=== PATIENT | male | born 1950 | race African-American/Black ===

== ENCOUNTER 2020-05-25 08:25 | Outpatient (CLI) | payer MEDICARE, SELFPAY ==
--- NOTE | ~2020-05-25 | CT_ITS ---
EXAMINATION: CT abdomen pelvis w con EXAM DATE: 05/25/2020 09:05 INDICATION: Prostate cancer. TECHNIQUE: Spiral CT of the abdomen and pelvis was performed following intravenous injection of 100 m L Omnipaque 350. Axial, coronal and sagittal images were reviewed. The dose-length product (DLP) fo r this examination was 746.68 mGy-cm. The exposure was tailored according to patient size (auto mA e xposure control), and iterative reconstruction (ASIR) was used as additional dose reduction technique . Correlation is made to PET/CT 12/11/2017. FINDINGS: The liver, spleen, adrenal glands and pancreas are unremarkable. Gallbladder is unremark able. No biliary obstruction. Portal and splenic veins are patent. Kidneys enhance symmetrically. There is no hydronephrosis. Scattered renal lesions consistent with cysts, largest in the left kidne y measuring 1.5 cm. Patient has likely had prostatectomy. The bladder is unremarkable. There is n o retroperitoneal or pelvic lymphadenopathy. Small umbilical hernia with small bowel bulging inside . Mild scattered arteriosclerotic disease. The appendix is normal. The stomach and small bowel are unremarkable. There is expected amount of c olonic stool. No free intraperitoneal gas. The heart is normal in size. There are no pericardial or pleural effusions. The lung bases are unremarkable. There are no osteoblastic or osteolytic les ions identified. Mild bilateral gynecomastia. IMPRESSION: No evidence of metastatic disease. Reviewed, dictated and finalized at location B. FIXER
--- NOTE | ~2020-05-25 | NM_ITS ---
EXAMINATION: NM bone scan whole body DATE: 05/25/2020 11:57 INDICATION: Prostate cancer. TECHNIQUE: 25 mCi Tc-99m HDP was administered intravenously. Delayed whole-body scintigrams were obt ained. COMPARISON: CT abdomen and pelvis 05/25/20 FINDINGS: There is no pattern of increased activity in the bones to suggest metastatic disease. IMPRESSION: 1. No evidence of metastatic disease. Reviewed, dictated and finalized at location A. 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
[2020-05-25 08:58] LABS: Estimated Glomerular Filt Rate > 60
== END 2020-05-25 08:26 | disposition home or self-care (01) ==
PROVIDERS: PCP Internal Medicine; Visit Provider Urology
DX: C61 Malignant neoplasm of prostate (principal)
CPT/HCPCS: 74177; 78306; A9561; Q9967

== ENCOUNTER 2021-05-16 21:05 | Inpatient (IN) | payer MEDICARE, SELFPAY ==
[2021-05-16] VITALS (25 sets, daily range): BP systolic 109–138; BP diastolic 68–94; PULSE 101–113; RESP 11–25; TEMP 36.1; O2SAT 93
--- NOTE | ~2021-05-16 | CT_ITS ---
EXAMINATION: CT brain wo con DATE: 05/16/2021 21:45 INDICATION: Syncope TECHNIQUE: Computed tomography (CT) of the head was performed without intravenous contrast. The mA wa s adjusted according to patient size. Iterative reconstruction technique was employed. Exam dose: 68 1.00 mGy-cm total exam DLP. COMPARISON: None FINDINGS: Bilateral vertebral artery, basilar artery and bilateral carotid siphon internal carotid ar deborah calcifications. There is nonspecific patchy diminished attenuation of the cerebral white matter, likely due to chroni c small vessel ischemic changes. No intracranial mass lesion or hemorrhage or cerebrovascular accident is evident. No midline shift or mass effect. Normal ventricular size. Moderate cerebral volume loss. No subdural or epidural hematom a. No fracture or bone destruction of the cranial vault. There is evidence of bilateral nasal antral windows. There is mild mucoperiosteal thickening of the m axillary sinuses and soft tissue thickening of some of the ethmoid septae. There is partial opacifica tion of left mastoid air cells. IMPRESSION: Cerebral atherosclerosis and chronic small vessel ischemic changes of the cerebral white matter No acute intracranial finding Reviewed, dictated and finalized at Location A. Reviewed, dictated and finalized at location A. 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
--- NOTE | ~2021-05-16 | XR_ITS ---
XR chest 1V portable DATE: 05/16/2021 21:56 INDICATION: Syncope today TECHNIQUE: Portable AP chest on 05/16/2021 at 2153 hours COMPARISON: None FINDINGS: There are patchy infiltrates in the mid and particularly lower lung zones suggesting bilate ral pneumonia; aspiration pneumonitis is not excluded. Normal heart size. No pulmonary vascular congestion or pleural effusion or pneumothorax. IMPRESSION: Bilateral mid and lower lung infiltrates suggesting bilateral pneumonia. Aspiration is no t excluded. Reviewed, dictated and finalized at location A. SLATIVE CORRESPONDENT IMPRESSION: Bilateral mid and lower lung infiltrates suggesting bilateral pneum onia. Aspiration is not excluded.
--- NOTE | 2021-05-16 21:31 | ECG_ITS ---
Measurements Intervals [place] Rate: 111 P: 48 HI: 134 QRS: 1 QRSD: 98 T: 53 QT: 326 QTc: 444 Interpretive Statements SINUS TACHYCARDIA BASELINE ARTIFACT- I, II, III, AVR, AVL, AVF, V1, V3-V6 ABNORMAL ECG Electronically Signed On 05-17-2021 6:45:41 PER DIEM NURSE by [place] D.O.
[2021-05-16 22:15] LABS: Basophils Percent Auto 0.3 % (0.2-1.2); Eosinophils Percent Auto 0.1 % (0-4.4); Hematocrit 42.8 % (42.0-52.0); Immature Granulocyte Absolute 0.06 K/mm3 (0.00-0.031); Immature Granulocyte Percent A 0.8 % (0-0.5); Lymphocytes Absolute Auto 1.17 K/mm3 (0.9-3.2); Lymphocytes Percent Auto 16.3 % (18.3-44.2); Mean Corpuscular HGB Conc 32.7 g/dl (32-36); Mean Corpuscular Hemoglobin 25.7 pg (26-34); Mean Corpuscular Volume 78.7 fl (80-100); Mean Platelet Volume 10.5 fl (7.4-10.4); Monocytes Percent Auto 13.7 % (2.6-8.5); Neutrophils Absolute Auto 4.9 K/mm3 (1.3-6.7); Neutrophils Percent Auto 68.8 % (45.5-73.1); Platelet Count Result 231 k/mm3 (150-375); Red Blood Count 5.44 M/mm3 (4.6-6.20); Red Cell Distribution Width 14.3 % (11.5-14.5); White Blood Count 7.2 K/mm3 (4.5-10.0)
[2021-05-16 22:24] LABS: INR 1.1; Prothrombin Time 13.6 Seconds (11.1-14.7)
[2021-05-16 22:38] LABS: Troponin I < 0.012 ng/mL (0.000-0.034)
[2021-05-16 22:43] LABS: Alanine Aminotransferase 20 U/L (4-50); Albumin Level 4.2 g/dL (3.5-5.1); Alkaline Phosphatase 67 U/L (38-126); Anion Gap 11 mmol/L (8-16); Aspartate Amino Transferase 39 U/L (17-59); Bilirubin,Total 1.3 mg/dL (0.2-1.3); Blood Urea Nitrogen 23 mg/dL (9-20); Calcium 8.9 mg/dL (8.4-10.2); Carbon Dioxide 22 mmol/L (22-30); Chloride 98 mmol/L (98-107); Estimated CRCL calculation 80 ml/min; Estimated Glomerular Filt Rate > 60; Glucose 294 mg/dL (65-110); Magnesium 2.5 mg/dL (1.6-2.3); Potassium 5.2 mmol/L (3.4-5.0); Sodium 131 mmol/L (137-145)
[2021-05-16] MEDS: SODIUM CHLORIDE 0.9% IV 500 ML 999 ML IV CONT (23:11)
--- NOTE | 2021-05-16 23:37 | ED.GENADULT ---
HPI - General Adult General Chief complaint: Syncope Stated complaint: SYNCOPAL X 2 WITH A GLF Time Seen by Provider: 05/16/21 21:15 Source: patient, family and EMS Mode of arrival: EMS Limitations: no limitations History of Present Illness HPI narrative: 70-year-old with a history of diabetes on insulin was brought in from home with history of multiple syncopal episodes. Patient states that he was walking out of the toilet , presents became unsteady on his feet and fell forwards. As per the granddaughter who is at bedside patient was disoriented for few seconds to a minute but she did not lose consciousness. He denied any chest pain or shortness of breath. Patient she states that had 2 episodes this evening. Second time he was not incontinent of urine. No previous history of seizure disorder. He denies any patient does report that he had a chest pain, palpitation. No history of nausea, vomiting or abdominal pain blood in the stool. Granddaughter also reports that he was found confused this afternoon Onset (ago): hour(s) (1) Location: face Relieving factors: none Exacerbating factors: none Associated symptoms: denies other symptoms Related Data Allergies Allergy/AdvReac Type Severity Reaction Status Date / Time No Known Allergies Allergy Verified 05/16/21 21:13 Review of Systems Review of Systems: All systems reviewed & are unremarkable except as noted in HPI and below Constitutional: Constitutional: Reports no additional constitutional complaints Eyes: Eyes: Reports no additional eye complaints ENT: Reports system reviewed and no additional complaints, except as documented Cardiovascular: Cardiovascular: Reports no additional cardiovascular complaints Respiratory: Respiratory: Reports no additional respiratory complaints Gastrointestinal: Gastrointestinal: Reports no additional gastrointestinal complaints Genitourinary: Genitourinary: Reports no additional male genitourinary complaints Musculoskeletal: Musculoskeletal: Reports no additional musculoskeletal complaints Exam Narrative: GENERAL: Well-appearing, well-nourished, and in no acute distress. HEAD: Normocephalic, atraumatic. EYES: PERRLA and EOMI. ENT: Nares clear, no rhinorrhea or epistaxis. Mucous membranes moist. A small superficial erythema present. Plaque noted on the lower lip , no dental fracture NECK: Supple. CHEST: Clear to auscultation. No respiratory distress. HEART: Regular rate and rhythm. No murmur heard. Normal peripheral pulses. ABDOMEN: Soft, nontender, nondistended, normal active bowel sounds. EXTREMITIES: Normal range of motion. No edema. SKIN: Warm, dry, no rash. NEURO: No focal deficits. Alert and oriented x3. PSYCH: Normal mood and affect. Course Course Emergency Course: Patient remains asymptomatic, I discussed lab, EKG and CT findings with the patient and her granddaughter. She prefers him discussed with the hospitalist agreed to admit the patient. To be admitted Vital Signs Vital signs: Vital Signs Temperature 36.1 C L 05/16/21 21:06 Pulse Rate 108 H 05/16/21 21:06 Respiratory Rate 17 05/16/21 21:06 Blood Pressure 132/78 05/16/21 21:06 Pulse Oximetry 93 05/16/21 21:06 Temperature 36.1 C L 05/16/21 21:06 Pulse Rate 102 H 05/17/21 00:01 Respiratory Rate 22 H 05/17/21 00:01 Blood Pressure 127/79 05/17/21 00:01 Pulse Oximetry 97 05/17/21 00:01 Medical Decision Making Vital Signs Vital Signs: Vital Signs Temperature 36.1 C L 05/16/21 21:06 Pulse Rate 108 H 05/16/21 21:06 Respiratory Rate 17 05/16/21 21:06 Blood Pressure 132/78 05/16/21 21:06 Pulse Oximetry 93 05/16/21 21:06 Temperature 36.1 C L 05/16/21 21:06 Pulse Rate 102 H 05/17/21 00:01 Respiratory Rate 22 H 05/17/21 00:01 Blood Pressure 127/79 05/17/21 00:01 Pulse Oximetry 97 05/17/21 00:01 Lab Data Result diagrams: 05/16/21 22:10 05/16/21 22:10 Labs: Lab Resu
[2021-05-17] VITALS (61 sets, daily range): BP systolic 93–140; BP diastolic 45–90; PULSE 88–116; RESP 13–37; TEMP 36.2–37; O2SAT 93–99; BMI 23.3
--- NOTE | 2021-05-17 | ECHO_ITS ---
Patient Info Name: Jai Escobar Age: 70 years : 1950 Gender: Male Ht: 75 in Wt: 215 lbs BSA: 2.28 m2 HR: 105 bpm BP: 129 / 85 mmHg Heart Rhythm: Sinus Rhythm Technical Quality: Good Exam Date: 05/17/2021 2:13 PM Exam Location: [facility] Card Pulmonary Patient Status: Inpatient Admit Date: 05/17/2021 Staff Ordering Physician: Matt Hill M.A., MD Patient Portal Concierge: Nataly Vargas RDCS Attending Provider: Cyrus Celeste MD Referring Physician: Nile GARCIA; Exam Type: CA echo doppler color flow Study Info Indications R55 - Syncope and collapse Complete two-dimensional, color flow and Doppler transthoracic echocardiogram is performed. Summary 1. Complete two-dimensional, color flow and Doppler transthoracic echocardiogram is performed. 2. Left ventricular chamber dimension is normal. 3. Left ventricular systolic function is normal, estimated at 55-60%. 4. There is moderately increased left ventricular wall thickness. 5. The left ventricular diastolic function is grade I diastolic dysfunction. 6. There is no aortic valve stenosis. 7. There is mild tricuspid valve regurgitation. 8. No pulmonary hypertension, estimated pulmonary arterial systolic pressure is 27 mmHg. 9. There is no mitral valve regurgitation. Left Ventricle Left ventricular chamber dimension is normal. Left ventricular systolic function is normal, estimated at 55-60%. There is moderately increased left ventricular wall thickness. The left ventricular diastolic function is grade I diastolic dysfunction. Right Ventricle Right ventricular chamber dimension is normal. Right ventricular systolic function is normal. Left Atria Left atrial chamber dimension is normal. Right Atria Right atrial chamber dimension is normal. Aortic Valve The aortic valve is trileaflet. There is no aortic valve stenosis. There is no aortic valve regurgitation. Pulmonic Valve The pulmonic valve is not well visualized. Mitral Valve The mitral valve has thickened leaflets. There is no mitral valve regurgitation. Tricuspid Valve The tricuspid valve leaflets are normal. There is mild tricuspid valve regurgitation. No pulmonary hypertension, estimated pulmonary arterial systolic pressure is 27 mmHg. Pericardium/Pleural The pericardium appears epicardial fat pad. Inferior Vena Cava Normal inferior vena cava with >50% collapse upon inspiration consistent with normal right atrial pressure, 5 mmHg. Aorta The aortic root size at the sinus of Valsalva is mildly dilated. Left Ventricular Outflow Tract Name Value Normal LVOT 2D LVOT Diameter 2.1 cm LVOT Doppler LVOT Peak Gradient 3 mmHg LVOT Mean Gradient 2 mmHg LVOT VTI 16 cm LVOT VTI/AV VTI Ratio 0.8 LVOT Stroke Volume 56 ml LVOT CO 4.9 l/min LVOT CI 2.1 l/min/m2 Pulmonic Valve Name
[2021-05-17 00:59] LABS: SARS-CoV-2 RNA PCR Positive
[2021-05-17] MEDS: SODIUM CHLORIDE 0.9% IV 1,000 ML 75 ML IV CONT (01:26)
[2021-05-17 01:32] LABS: Glucose Point of Care 289 mg/dl (65-105)
[2021-05-17 06:45] LABS: Troponin I < 0.012 ng/mL (0.000-0.034)
[2021-05-17 08:08] LABS: Glucose Point of Care 231 mg/dl (65-105)
[2021-05-17] MEDS: ASPIRIN 81 MG CHEWABLE TABLET PO (08:44)
[2021-05-17] MEDS: INSULIN ASPART (*BKC) 100 UNITS/ML SUB-Q ×2 (08:45→18:08)
--- NOTE | 2021-05-17 08:47 | PM.CNCAR ---
Assessment and Plan Assessment and plan (1) Diabetes mellitus: Code(s): E11.9 - Type 2 diabetes mellitus without complications Status: Acute (2) Pneumonia due to 2019 novel coronavirus: Code(s): U07.1 - COVID-19; J12.82 - Pneumonia due to coronavirus disease 2019 Status: Acute (3) Syncope: Qualifiers: Syncope type: unspecified Qualified Code(s): R55 - Syncope and collapse Code(s): R55 - Syncope and collapse Status: Acute (4) Acute hypoxemic respiratory failure: Code(s): J96.01 - Acute respiratory failure with hypoxia Status: Acute Additional Plan -syncope -COVID pneumonia -history of diabetes This 70-year-old patient who presents with recurrent episodes of syncope. Evidence of dehydration by elevated BUN to creatinine ratio. Currently sinus tachycardia. Patient does have underlying COVID pneumonia. Recommend at this time to continue IV fluids. Check echocardiogram to assess RV function. Supportive care for COVID pneumonia. DVT prophylaxis History of Present Illness History of Present Illness Consult date/time: Date of service 05/17/21 08:47 Requesting physician: Timothy Adkins MD Consult reason: Other ( syncope) Reason For Visit: syncope Narrative: this 70-year-old patient with history of stage III adenocarcinoma of the prostate, with a history of prostatectomy 2014 , diabetes who presents with syncope and altered mental status. He was found to have COVID. Patient is tachycardic between heart rate 100-110 and systolic blood pressure 120. Currently sitting comfortably with no complaints of chest pain, shortness of breath, dizziness of palpitations. Sinus tachycardia on telemetry. Not requiring oxygen. Apparently was trying to stand up at home a was having episodes of syncope. Passed out several times. Chest x-ray with analyzer views myself consistent with COVID pneumonia. BUN 23, creatinine 0.[address] of the head shows small vessel disease. Review of Systems Constitutional: Constitutional: Denies chills, Denies fever(s) and Denies poor appetite Eyes: Eyes: Denies eye discharge, Denies loss of vision, Denies eye pain and Denies photophobia ENT: Denies dizziness, Denies epistaxis, Denies nasal congestion and Denies sore throat Cardiovascular: Cardiovascular: Denies chest pain, Denies syncope, Denies pedal edema, Denies leg edema, Denies palpitations, Denies dyspnea, Denies dyspnea on exertion, Denies orthopnea and Reports other (Syncope) Respiratory: Respiratory: Denies cough, Denies dyspnea, Denies dyspnea on exertion and Denies wheezing Gastrointestinal: Gastrointestinal: Denies abdominal pain, Denies diarrhea, Denies nausea and Denies vomiting Genitourinary: Genitourinary: Denies hematuria, Denies genital lesions and Denies dysuria Musculoskeletal: Musculoskeletal: Denies arthralgias, Denies joint swelling and Denies numbness Integumentary/Breasts: Skin/Breast: Denies pruritus and Denies rash Neurologic: Reports dizziness, Reports syncope, Denies loss of vision and Denies numbness Psychiatric: Psychiatric: Denies anxiety and Denies depression Endocrine: Endocrine: Denies cold intolerance, Denies heat intolerance and Denies palpitations Hematologic/Lymphatic: Hematologic/Lymphatic: Denies easy bleeding and Denies easy bruising Allergic/Immunologic: Allergic/Immunologic: Denies urticaria and Denies wheezing PMFSH Past Medical History Medical History Diabetes Prostate cancer Surgical History Surgical History (Updated 05/17/21 @ 11:01 by Raymond Giraldo MD) H/O prostatectomy Social History Social History (Updated 05/17/21 @ 11:02 by Raymond Giraldo MD) Smoking status: Never smoker Alcohol intake: never Meds Home Medications and Allergies Allergies Allergy/AdvReac Type Severity Reaction Status Date / Time No Known Allergies Allerg
--- NOTE | 2021-05-17 08:54 | PM.IMHP ---
H&P: HPI History of Present Illness Date/Time: 05/17/21 08:54 Chief Complaint: Syncopal episode Narrative: 70 years old male with past medical history of diabetes presented to the hospital with multiple syncopal episode patient was trying to stand from well it and have loss of consciousness denies chest pain during my evaluation patient's systolic blood pressure was 98 patient also has hypoxia chest x-ray shows bilateral infiltrate concern for COVID/aspiration pneumonia COVID-19 was positive patient was admitted for further evaluation and treatment Review of Systems Review of Systems: All systems reviewed & are unremarkable except as noted in HPI and below Meds Home Medications and Allergies Allergies Allergy/AdvReac Type Severity Reaction Status Date / Time No Known Allergies Allergy Verified 05/16/21 21:13 Vital Signs Vital Signs - 24 hr 05/16/21 21:06 05/16/21 21:10 05/16/21 21:11 Temperature 97.0 F L Pulse Rate 108 H Respiratory Rate 17 22 H 11 L Blood Pressure 132/78 132/78 Pulse Oximetry 93 05/16/21 21:15 05/16/21 21:16 05/16/21 21:30 Temperature Pulse Rate 106 H 107 H 109 H Respiratory Rate 22 H 19 18 Blood Pressure 136/76 Pulse Oximetry 93 05/16/21 21:31 05/16/21 21:46 05/16/21 21:47 Temperature Pulse Rate 109 H 112 H 111 H Respiratory Rate 23 H 22 H 25 H Blood Pressure 138/76 118/77 Pulse Oximetry 05/16/21 22:00 05/16/21 22:01 05/16/21 22:15 Temperature Pulse Rate 112 H 110 H 108 H Respiratory Rate 20 18 17 Blood Pressure 126/79 Pulse Oximetry 05/16/21 22:16 05/16/21 22:30 05/16/21 22:31 Temperature Pulse Rate 113 H 109 H 109 H Respiratory Rate 24 H 22 H 20 Blood Pressure 126/76 132/81 Pulse Oximetry 05/16/21 22:45 05/16/21 22:46 05/16/21 23:00 Temperature Pulse Rate 109 H 109 H 108 H Respiratory Rate 24 H 19 21 H Blood Pressure 137/88 Pulse Oximetry 05/16/21 23:01 05/16/21 23:15 05/16/21 23:16 Temperature Pulse Rate 109 H 103 H 104 H Respiratory Rate 16 18 24 H Blood Pressure 115/68 133/82 Pulse Oximetry 05/16/21 23:30 05/16/21 23:31 05/16/21 23:45 Temperature Pulse Rate 101 H 101 H 102 H Respiratory Rate 17 19 25 H Blood Pressure 134/75 Pulse Oximetry 05/16/21 23:46 05/17/21 00:00 05/17/21 00:01 Temperature Pulse Rate 102 H 99 102 H Respiratory Rate 24 H 18 22 H Blood Pressure 109/94 H 127/79 Pulse Oximetry 97 05/17/21 02:26 05/17/21 04:51 05/17/21 05:48 Temperature Pulse Rate 99 101 H 103 H Respiratory Rate 18 21 H 17 Blood Pressure 130/75 140/90 137/78 Pulse Oximetry 99 96 93 05/17/21 06:19 05/17/21 06:48 Temperature 98.6 F Pulse Rate 108 H 112 H Respiratory Rate 20 19 Blood Pressure 129/85 129/85 Pulse Oximetry 96 97 Exam Const: General: in distress HENMT: Ears: TM's normal bilaterally Eyes: Sclera: sclerae normal Neck: Neck: no JVD Resp: Auscultation: crackles, rales and rhonchi Cardio: Rate: regular rate Rhythm: regular rhythm GI: Inspection: non-distended GI Palp: Yes Soft to palpation Skin: General skin exam: normal color Neuro: General: deep tendon reflexes 2+ bilaterally Speech: normal speech Motor exam (neuro): Normal motor muscle tone present throughout Extrem: General: normal to inspection Left upper extremity: normal to inspection Right lower extremity: normal to inspection Left lower extremity: normal to inspection Psych: Mental Status: mental status grossly normal H&P: Results Labs Labs: Short CBC 05/16/21 Range/Units 22:10 WBC 7.2 (4.5-10.0) K/mm3 Hgb 14.0 (14.0-18.0) g/dL Hct 42.8 (42.0-52.0) % Plt Count 231 (150-375) k/mm3 BMP 05/16/21 22:10 Sodium 131 L Potassium 5.2 H Chloride 98 Carbon Dioxide 22 BUN 23 H Creatinine 0.90 Glucose 294 H Calcium 8.9 Cardiac Enzymes 05/16/21 05/17/21 Range/Units 22:10 05:59 Troponin I < 0.012 < 0.012 (0.000-0.034) ng/
[2021-05-17 09:24] LABS: Basophils Percent Auto 0.3 % (0.2-1.2); Hematocrit 36.4 % (42.0-52.0); Hemoglobin 12.2 g/dL (14.0-18.0); Immature Granulocyte Absolute 0.03 K/mm3 (0.00-0.031); Immature Granulocyte Percent A 0.4 % (0-0.5); Lymphocytes Absolute Auto 1.28 K/mm3 (0.9-3.2); Lymphocytes Percent Auto 17.8 % (18.3-44.2); Mean Corpuscular HGB Conc 33.5 g/dl (32-36); Mean Corpuscular Hemoglobin 26.1 pg (26-34); Mean Corpuscular Volume 77.8 fl (80-100); Mean Platelet Volume 10.5 fl (7.4-10.4); Monocytes Absolute Auto 1.1 K/mm3 (0.1-0.6); Monocytes Percent Auto 14.8 % (2.6-8.5); Neutrophils Absolute Auto 4.8 K/mm3 (1.3-6.7); Neutrophils Percent Auto 66.7 % (45.5-73.1); Platelet Count Result 233 k/mm3 (150-375); Red Blood Count 4.68 M/mm3 (4.6-6.20); White Blood Count 7.2 K/mm3 (4.5-10.0)
[2021-05-17 09:41] LABS: Alanine Aminotransferase 17 U/L (4-50); Estimated CRCL calculation 80 ml/min; Estimated Glomerular Filt Rate > 60; INR 1.1; Prothrombin Time 14.5 Seconds (11.1-14.7)
[2021-05-17 09:53] LABS: Albumin Level 3.9 g/dL (3.5-5.1); Alkaline Phosphatase 81 U/L (38-126); Anion Gap 11 mmol/L (8-16); Aspartate Amino Transferase 26 U/L (17-59); Bilirubin,Total 0.8 mg/dL (0.2-1.3); Blood Urea Nitrogen 19 mg/dL (9-20); Calcium 8.8 mg/dL (8.4-10.2); Carbon Dioxide 25 mmol/L (22-30); Chloride 101 mmol/L (98-107); Glucose 232 mg/dL (65-110); Potassium 4.3 mmol/L (3.4-5.0); Sodium 137 mmol/L (137-145)
[2021-05-17] MEDS: AMPICILLIN SULB 3 GM/NS 100 ML 3 GM/100 ML VIAL IVPB ×3 (10:08→23:42)
[2021-05-17 10:09] LABS: Troponin I < 0.012 ng/mL (0.000-0.034)
[2021-05-17] MEDS: BENZONATATE 100 MG CAPSULE 200 MG PO ×3 (10:10→18:07)
[2021-05-17] MEDS: BISACODYL 5 MG TABLET EC PO (10:11)
[2021-05-17] MEDS: ENOXAPARIN 30 MG/0.3 ML SYRINGE SUB-Q ×2 (10:11→21:30)
[2021-05-17] MEDS: guaiFENesin 12 HR 600 MG TABCR PO ×2 (10:11→21:29)
[2021-05-17] MEDS: INSULIN GLARGINE (*BKC) 100 UNITS/ML 10 UNITS SUB-Q (10:12)
[2021-05-17] MEDS: SODIUM CHLORIDE 0.45% 1,000 ML 75 ML IV CONT (10:24)
[2021-05-17] MEDS: MIDODRINE HCL 2.5 MG TABLET 5 MG PO ×3 (10:33→18:07)
[2021-05-17 10:43] LABS: CRP 12.5 mg/dL (<1.0)
[2021-05-17] MEDS: REMDESIVIR 200 MG/NS 250 ML 200 MG/250 ML BAG 250 MG IVPB (11:17)
[2021-05-17 11:28] LABS: Glucose Point of Care 188 mg/dl (65-105)
--- NOTE | 2021-05-17 16:53 | PCSTNOTE ---
Please refer to the Bedside Swallow Evaluation in the EMR. Please note, silent aspiration cannot be ruled out at bedside.
[2021-05-17 16:54] LABS: Glucose Point of Care 367 mg/dl (65-105)
[2021-05-17 22:18] LABS: Glucose Point of Care 356 mg/dl (65-105)
[2021-05-17 23:58] LABS: Glucose Point of Care 319 mg/dl (65-105)
[2021-05-18] VITALS: BP 123/79; PULSE 90; RESP 18; TEMP 36.2; O2SAT 95
[2021-05-18 04:00] VITALS: BP 123/73; PULSE 84; RESP 16; TEMP 36.3; O2SAT 95
[2021-05-18 04:55] LABS: Glucose Point of Care 326 mg/dl (65-105)
[2021-05-18] MEDS: AMPICILLIN SULB 3 GM/NS 100 ML 3 GM/100 ML VIAL IVPB (05:42)
[2021-05-18 08:00] VITALS: BP 113/59; PULSE 88; RESP 18; TEMP 37.2; O2SAT 93
[2021-05-18 08:23] LABS: Glucose Point of Care 258 mg/dl (65-105)
[2021-05-18] MEDS: ENOXAPARIN 30 MG/0.3 ML SYRINGE SUB-Q ×2 (08:40→21:57)
[2021-05-18] MEDS: BENZONATATE 100 MG CAPSULE 200 MG PO ×3 (08:40→16:41)
[2021-05-18] MEDS: guaiFENesin 12 HR 600 MG TABCR PO ×2 (08:41→21:57)
[2021-05-18] MEDS: ASPIRIN 81 MG CHEWABLE TABLET PO (08:41)
[2021-05-18] MEDS: MIDODRINE HCL 2.5 MG TABLET 5 MG PO ×3 (08:41→16:41)
[2021-05-18] MEDS: INSULIN GLARGINE (*BKC) 100 UNITS/ML 10 UNITS SUB-Q (08:42)
[2021-05-18] MEDS: INSULIN ASPART (*BKC) 100 UNITS/ML SUB-Q ×3 (08:42→16:39)
[2021-05-18] MEDS: SODIUM CHLORIDE 0.45% 1,000 ML 75 ML IV CONT (10:30)
[2021-05-18 11:08] LABS: Basophils Percent Auto 0.3 % (0.2-1.2); Hematocrit 35.7 % (42.0-52.0); Hemoglobin 11.7 g/dL (14.0-18.0); Immature Granulocyte Absolute 0.06 K/mm3 (0.00-0.031); Immature Granulocyte Percent A 0.8 % (0-0.5); Lymphocytes Absolute Auto 0.96 K/mm3 (0.9-3.2); Lymphocytes Percent Auto 13.2 % (18.3-44.2); Mean Corpuscular HGB Conc 32.8 g/dl (32-36); Mean Corpuscular Hemoglobin 25.9 pg (26-34); Mean Corpuscular Volume 79.2 fl (80-100); Mean Platelet Volume 10.9 fl (7.4-10.4); Monocytes Absolute Auto 0.8 K/mm3 (0.1-0.6); Monocytes Percent Auto 10.6 % (2.6-8.5); Neutrophils Absolute Auto 5.5 K/mm3 (1.3-6.7); Neutrophils Percent Auto 75.1 % (45.5-73.1); Platelet Count Result 258 k/mm3 (150-375); Red Blood Count 4.51 M/mm3 (4.6-6.20); Red Cell Distribution Width 14.1 % (11.5-14.5); White Blood Count 7.3 K/mm3 (4.5-10.0)
[2021-05-18 11:20] LABS: INR 1.2; Prothrombin Time 15.1 Seconds (11.1-14.7)
[2021-05-18 11:35] LABS: Alanine Aminotransferase 19 U/L (4-50); Albumin Level 3.6 g/dL (3.5-5.1); Alkaline Phosphatase 69 U/L (38-126); Anion Gap 7 mmol/L (8-16); Aspartate Amino Transferase 25 U/L (17-59); Bilirubin,Total 0.5 mg/dL (0.2-1.3); Blood Urea Nitrogen 19 mg/dL (9-20); CRP 10.8 mg/dL (<1.0); Calcium 8.5 mg/dL (8.4-10.2); Carbon Dioxide 24 mmol/L (22-30); Chloride 104 mmol/L (98-107); Estimated CRCL calculation 101 ml/min; Estimated Glomerular Filt Rate > 60; Glucose 298 mg/dL (65-110); Sodium 135 mmol/L (137-145)
--- NOTE | 2021-05-18 11:46 | PCDIET ---
Pt screened in for MST 2. Unable to visit with pt due to following covid precautions. Per EMR, pt has had unintentional wt loss of 2-13lbs and decreased appetite. No past weight reported to compare to current weight. Current nutrition is carb consistent diet and dietary supplement of Glucerna Shake BID providing an additional 220kcal and 10g of protein. Reported intake is 70% and 100%. Agree with diet order. No nutritional needs at this time. Will follow up in 7 days.
[2021-05-18 11:58] VITALS: BP 122/61; PULSE 90; RESP 18; TEMP 36.2; O2SAT 95
[2021-05-18 12:10] LABS: Glucose Point of Care 354 mg/dl (65-105)
--- NOTE | 2021-05-18 12:16 | PM.IMPN ---
Progress Note: A&P Assessment and Plan (1) Syncope: Qualifiers: Syncope type: unspecified Qualified Code(s): R55 - Syncope and collapse Code(s): R55 - Syncope and collapse Status: Acute Assessment and Plan: CT scan of the head is negative Probable vasovagal complicated by hypotension and orthostatic hypotension and pneumonia DC IV fluid today as patient also has COVID-19 pneumonia echo cardiology eval Improved (2) Pneumonia due to 2019 novel coronavirus: Code(s): U07.1 - COVID-19; J12.82 - Pneumonia due to coronavirus disease 2019 Status: Acute Assessment and Plan: Probable COVID-19 pneumonia complicated with aspiration pneumonia continue IV antibiotic Started COVID-19 protocol Remdesivir 05/26 Dexamethasone 05/31 (3) Acute hypoxemic respiratory failure: Code(s): J96.01 - Acute respiratory failure with hypoxia Status: Acute Assessment and Plan: Secondary to COVID-19 pneumonia oxygen COVID-19 protocol was started remdesivir and dexamethasone (4) Diabetes mellitus: Code(s): E11.9 - Type 2 diabetes mellitus without complications Status: Acute Assessment and Plan: Insulin sliding scale Uncontrolled Scheduled aspart increase the dose of Lantus most likely related to steroid Subjective Date/time seen: 05/18/21 12:16 Interval history: Patient presented to the hospital with multiple syncopal episode associated with hypotension patient was found to have dehydration bilateral pneumonia concern for aspiration pneumonia also COVID-19 was positive patient was treated with broad-spectrum IV antibiotics also started on dexamethasone and remdesivir Patient was treated with IV fluid and midodrine Patient feels better today Patient denies fever headache chest pain I am seeing the patient for shortness of breath Exam Narrative: Alert Chest positive crackles Abdomen nontender nondistended CVS S1 + S2 Lower extremity edema Objective Data Vital Signs Vital Signs: Vital Signs - 24 hr 05/17/21 12:30 05/17/21 15:10 05/17/21 16:00 Temperature 97.6 F 97.5 F L Pulse Rate 100 111 H 98 Respiratory Rate 16 20 18 Blood Pressure 125/78 107/45 L Pulse Oximetry 94 94 05/17/21 21:02 05/18/21 00:00 05/18/21 04:00 Temperature 97.2 F L 97.2 F L 97.4 F L Pulse Rate 88 90 84 Respiratory Rate 16 18 16 Blood Pressure 113/67 123/79 123/73 Pulse Oximetry 95 95 95 05/18/21 08:00 05/18/21 11:58 Temperature 99.0 F 97.2 F L Pulse Rate 88 90 Respiratory Rate 18 18 Blood Pressure 113/59 L 122/61 Pulse Oximetry 93 95 Intake/Output Intake/Output: Intake & Output 05/15/21 05/16/21 05/17/21 05/18/21 23:59 23:59 23:59 23:59 Intake Total 500 3180 1390 Output Total 700 Balance 500 3180 690 Meds/Results Medications: Active Medications Generic Name Dose Route Start Last Admin Trade Name Freq PRN Reason Stop Dose Admin Acetaminophen 650 mg 05/17/21 08:44 Acetaminophen 325 Mg Tablet PO Q4H PRN Mild Pain (1-3) or Fever Albuterol 2 puff 05/17/21 09:13 Albuterol Sulfate (*Sp) Inhaler INHALATION Q6HRT PRN Shortness Of Breath Aspirin 81 mg 05/17/21 08:00 05/18/21 08:41 Aspirin 81 Mg Chewable Tablet PO 81 mg DAILY@0800 [facility] Administration Benzonatate 200 mg 05/17/21 09:00 05/18/21 08:40 Benzonatate 100 Mg Capsule PO 200 mg TID HANY Administration Bisacodyl 5 mg 05/17/21 08:44 05/17/21 10:11 Bisacodyl 5 Mg Tablet Ec PO 5 mg DAILY PRN Administration Constipation Dexamethasone Sodium Phosphate 6 mg 05/17/21 09:00 05/18/21 08:41 Dexamethasone Sod Phos Inj 10 Mg/Ml 1 Ml Vial IV PUSH 05/26/21 09:01 6 mg DAILY HANY Administration Dextrose 12.5 gm 05/17/21 08:58 Dextrose 50% 25 Gm/50 Ml Syringe IV PUSH PRN PRN Hypoglycemia Protocol Doxycycline Hyclate 100 mg 05/18/21 18:00 Doxycycline Hyclate 100 Mg Tablet PO Q12H [facility] Enoxaparin S
[2021-05-18 12:26] LABS: Hypochromasia 1+ (NORMAL); Platelet Estimate Adequate (Adequate)
[2021-05-18 12:27] LABS: Atypical Lymphocytes Present; Tear Drop Cells 1+ (NORMAL)
[2021-05-18] MEDS: REMDESIVIR 100 MG/NS 250 ML 100 MG/250 ML BAG 250 MG IVPB (12:33)
[2021-05-18] MEDS: cefTRIAXone 2 GM in SODIUM CHLORIDE 0.9% IV 100 ML 200 ML IVPB (13:55)
[2021-05-18] MEDS: INSULIN ASPART (*BKC) 100 UNITS/ML 6 UNITS SUB-Q (16:39)
[2021-05-18] MEDS: DOXYCYCLINE HYCLATE 100 MG TABLET PO (16:41)
[2021-05-18 16:48] LABS: Glucose Point of Care 408 mg/dl (65-105)
[2021-05-18 19:01] LABS: Glucose Point of Care 322 mg/dl (65-105)
[2021-05-18 20:00] VITALS: BP 134/80; PULSE 92; RESP 16; TEMP 36.4; O2SAT 94
[2021-05-18 22:06] LABS: Glucose Point of Care 359 mg/dl (65-105)
[2021-05-19] VITALS (7 sets, daily range): BP systolic 106–137; BP diastolic 49–81; PULSE 82–94; RESP 16–20; TEMP 36–37.1; O2SAT 91–98
[2021-05-19] MEDS: DOXYCYCLINE HYCLATE 100 MG TABLET PO ×2 (06:58→18:33)
[2021-05-19 07:55] LABS: INR 1.1; Prothrombin Time 14.5 Seconds (11.1-14.7)
[2021-05-19 08:05] LABS: Alanine Aminotransferase 15 U/L (4-50); Albumin Level 3.4 g/dL (3.5-5.1); Alkaline Phosphatase 72 U/L (38-126); Anion Gap 7 mmol/L (8-16); Aspartate Amino Transferase 21 U/L (17-59); Bilirubin,Total 0.3 mg/dL (0.2-1.3); Blood Urea Nitrogen 22 mg/dL (9-20); CRP 6.2 mg/dL (<1.0); Calcium 9.1 mg/dL (8.4-10.2); Carbon Dioxide 25 mmol/L (22-30); Chloride 104 mmol/L (98-107); Estimated CRCL calculation 101 ml/min; Estimated Glomerular Filt Rate > 60; Glucose 307 mg/dL (65-110); Potassium 4.1 mmol/L (3.4-5.0); Sodium 136 mmol/L (137-145)
[2021-05-19 08:18] LABS: Basophils Percent Auto 0.2 % (0.2-1.2); Hematocrit 37.9 % (42.0-52.0); Hemoglobin 12.4 g/dL (14.0-18.0); Immature Granulocyte Absolute 0.06 K/mm3 (0.00-0.031); Immature Granulocyte Percent A 0.9 % (0-0.5); Lymphocytes Absolute Auto 1.53 K/mm3 (0.9-3.2); Lymphocytes Percent Auto 23.1 % (18.3-44.2); Mean Corpuscular HGB Conc 32.7 g/dl (32-36); Mean Corpuscular Hemoglobin 25.9 pg (26-34); Mean Corpuscular Volume 79.1 fl (80-100); Monocytes Absolute Auto 0.9 K/mm3 (0.1-0.6); Monocytes Percent Auto 13.3 % (2.6-8.5); Neutrophils Absolute Auto 4.1 K/mm3 (1.3-6.7); Neutrophils Percent Auto 62.5 % (45.5-73.1); Platelet Count Result 313 k/mm3 (150-375); Red Blood Count 4.79 M/mm3 (4.6-6.20); Red Cell Distribution Width 14.2 % (11.5-14.5); White Blood Count 6.6 K/mm3 (4.5-10.0)
[2021-05-19] MEDS: INSULIN ASPART (*BKC) 100 UNITS/ML 6 UNITS SUB-Q ×3 (09:07→18:28)
[2021-05-19] MEDS: INSULIN GLARGINE (*BKC) 100 UNITS/ML 15 UNITS SUB-Q ×2 (09:07→18:30)
[2021-05-19] MEDS: INSULIN ASPART (*BKC) 100 UNITS/ML SUB-Q ×3 (09:07→18:28)
[2021-05-19] MEDS: MIDODRINE HCL 2.5 MG TABLET 5 MG PO ×2 (09:10→13:04)
[2021-05-19] MEDS: BENZONATATE 100 MG CAPSULE 200 MG PO ×3 (09:11→18:28)
[2021-05-19] MEDS: ASPIRIN 81 MG CHEWABLE TABLET PO (09:11)
[2021-05-19] MEDS: guaiFENesin 12 HR 600 MG TABCR PO ×2 (09:11→20:05)
[2021-05-19] MEDS: ENOXAPARIN 30 MG/0.3 ML SYRINGE SUB-Q ×2 (09:12→20:05)
[2021-05-19 10:06] LABS: Glucose Point of Care 297 mg/dl (65-105)
[2021-05-19] MEDS: REMDESIVIR 100 MG/NS 250 ML 100 MG/250 ML BAG 250 MG IVPB (10:35)
[2021-05-19 11:48] LABS: Glucose Point of Care 224 mg/dl (65-105)
--- NOTE | 2021-05-19 13:14 | PM.IMPN ---
Progress Note: A&P Assessment and Plan (1) Syncope: Qualifiers: Syncope type: unspecified Qualified Code(s): R55 - Syncope and collapse Code(s): R55 - Syncope and collapse Status: Acute Assessment and Plan: CT scan of the head is negative Probable vasovagal complicated by hypotension and orthostatic hypotension and pneumonia no hypotension reported in the chart Patient also has COVID-19 pneumonia echo reviewed ejection fraction 55-60%, moderately increased left ventricular wall thickness grade 1 diastolic dysfunction no other valvular abnormality noted Will do PT and OT evaluate Will stop his midodrine and monitor his blood pressure (2) Pneumonia due to 2019 novel coronavirus: Code(s): U07.1 - COVID-19; J12.82 - Pneumonia due to coronavirus disease 2019 Status: Acute Assessment and Plan: COVID-19 pneumonia complicated with aspiration pneumonia continue IV antibiotic Started COVID-19 protocol Remdesivir / Dexamethasone 06/28 (3) Acute hypoxemic respiratory failure: Code(s): J96.01 - Acute respiratory failure with hypoxia Status: Acute Assessment and Plan: Secondary to COVID-19 pneumonia oxygen COVID-19 protocol was started remdesivir and dexamethasone I do not see any hypoxia noted in the chart. Will reassess need for continued remdesivir and Decadron (4) Diabetes mellitus: Code(s): E11.9 - Type 2 diabetes mellitus without complications Status: Acute Assessment and Plan: Insulin sliding scale Uncontrolled Scheduled aspart increase the dose of Lantus most likely related to steroid Increase Lantus to 15 units subQ b.i.d. Subjective Date/time seen: 05/19/21 13:14 Interval history: Patient presented to the hospital with multiple syncopal episode associated with hypotension patient was found to have dehydration, bilateral pneumonia concern for aspiration pneumonia also COVID-19 was positive patient was treated with broad-spectrum IV antibiotics also started on dexamethasone and remdesivir Patient was treated with IV fluid and midodrine 05/19/2021: Patient feels better minimal cough no expectoration. Denies any shortness of breath. Has not ambulated yet Review of Systems Review of Systems: All systems reviewed & are unremarkable except as noted in HPI and below Exam Narrative: GENERAL: The patient is well developed, not in acute distress HEENT: Nonicteric sclerae, PERRLA, EOMI. Oropharynx clear. Moist mucous membranes. Conjunctivae appear well perfused. CHEST: Chest wall is nontender. HEART: Regular rate and rhythm without murmur, rubs, or gallops LUNGS: Clear to auscultation bilaterally. no respiratory distress ABDOMEN: Soft, positive bowel sounds, non-tender, no organomegaly. SKIN: No rash, no excessive bruising, petechiae, or purpura. NEUROLOGIC: Cranial nerves II-XII intact, alert and oriented x 3, no gross motor deficits EXTREMITIES: no edema, cyanosis or clubbing Objective Data Vital Signs Vital Signs: Vital Signs - 24 hr 05/18/21 20:00 05/19/21 04:00 05/19/21 05:29 Temperature 97.6 F 96.8 F L Pulse Rate 92 94 Respiratory Rate 16 16 Blood Pressure 134/80 106/49 L Pulse Oximetry 94 91 94 05/19/21 09:05 05/19/21 10:53 Temperature 98.7 F Pulse Rate 92 Respiratory Rate 16 Blood Pressure 113/66 Pulse Oximetry 94 95 Intake/Output Intake/Output: Intake & Output 05/16/21 05/17/21 05/18/21 05/19/21 23:59 23:59 23:59 23:59 Intake Total 500 3180 2720 860 Output Total 700 1000 Balance 500 3180 2020 -140 Meds/Results Medications: Active Medications Generic Name Dose Route Start Last Admin Trade Name Freq PRN Reason Stop Dose Admin Acetaminophen 650 mg 05/17/21 08:44 Acetaminophen 325 Mg Tablet PO Q4H PRN Mild Pain (1-3) or Fever Albuterol 2 puff 05/17/21 09:13 Albuterol Sulfate (*Sp) Inhaler INHALATION Q6HRT PRN Shortness Of Breath Aspirin 81 mg 05/17/21 08:
[2021-05-19 17:33] LABS: Glucose Point of Care 264 mg/dl (65-105)
[2021-05-19 20:47] LABS: Glucose Point of Care 339 mg/dl (65-105)
[2021-05-20] VITALS: BP 102/49; PULSE 84; RESP 18; TEMP 37; O2SAT 94
[2021-05-20 04:00] VITALS: BP 129/76; PULSE 94; RESP 18; TEMP 36.6; O2SAT 92
[2021-05-20] MEDS: DOXYCYCLINE HYCLATE 100 MG TABLET PO (06:25)
[2021-05-20 08:00] VITALS: BP 132/88; PULSE 98; RESP 24; TEMP 35.5; O2SAT 93
[2021-05-20] MEDS: INSULIN ASPART (*BKC) 100 UNITS/ML 6 UNITS SUB-Q (08:59)
[2021-05-20] MEDS: INSULIN GLARGINE (*BKC) 100 UNITS/ML 15 UNITS SUB-Q (09:00)
[2021-05-20] MEDS: ENOXAPARIN 30 MG/0.3 ML SYRINGE SUB-Q (09:00)
[2021-05-20] MEDS: INSULIN ASPART (*BKC) 100 UNITS/ML SUB-Q (09:00)
[2021-05-20] MEDS: ASPIRIN 81 MG CHEWABLE TABLET PO (09:01)
[2021-05-20] MEDS: BENZONATATE 100 MG CAPSULE 200 MG PO ×2 (09:01→13:29)
[2021-05-20] MEDS: guaiFENesin 12 HR 600 MG TABCR PO (09:01)
[2021-05-20 09:54] LABS: Basophils Percent Auto 0.3 % (0.2-1.2); Eosinophils Percent Auto 0.1 % (0-4.4); Hematocrit 41.1 % (42.0-52.0); Hemoglobin 13.2 g/dL (14.0-18.0); Immature Granulocyte Absolute 0.05 K/mm3 (0.00-0.031); Immature Granulocyte Percent A 0.7 % (0-0.5); Immature Platelet Fraction Pct 7.4 % (0.9-11.2); Lymphocytes Percent Auto 26.6 % (18.3-44.2); Mean Corpuscular HGB Conc 32.1 g/dl (32-36); Mean Corpuscular Hemoglobin 26.1 pg (26-34); Mean Corpuscular Volume 81.2 fl (80-100); Mean Platelet Volume 10.6 fl (7.4-10.4); Monocytes Absolute Auto 0.5 K/mm3 (0.1-0.6); Neutrophils Absolute Auto 4.9 K/mm3 (1.3-6.7); Neutrophils Percent Auto 65.3 % (45.5-73.1); Platelet Count Result 271 k/mm3 (150-375); Red Blood Count 5.06 M/mm3 (4.6-6.20); Red Cell Distribution Width 14.3 % (11.5-14.5); White Blood Count 7.5 K/mm3 (4.5-10.0)
[2021-05-20 10:07] LABS: INR 1.3; Prothrombin Time 15.6 Seconds (11.1-14.7)
[2021-05-20 10:53] LABS: Alanine Aminotransferase 23 U/L (4-50); Albumin Level 3.5 g/dL (3.5-5.1); Alkaline Phosphatase 71 U/L (38-126); Anion Gap 9 mmol/L (8-16); Aspartate Amino Transferase 32 U/L (17-59); Bilirubin,Total 0.5 mg/dL (0.2-1.3); Blood Urea Nitrogen 24 mg/dL (9-20); CRP 3.9 mg/dL (<1.0); Calcium 9.5 mg/dL (8.4-10.2); Carbon Dioxide 24 mmol/L (22-30); Chloride 106 mmol/L (98-107); Estimated CRCL calculation 101 ml/min; Estimated Glomerular Filt Rate > 60; Glucose 223 mg/dL (65-110); Sodium 139 mmol/L (137-145)
--- NOTE | 2021-05-20 10:53 | PC.NURSE ---
Per Dr. Celeste's request, I contacted PT to verify if pt was ok to be discharged to home or if he needed any rehab/ongoing PT services. PT stated that did not have him scheduled to be worked with today nor does he need any additional services beyond his current support system and mobility aids (ramp, cane, etc.) that are currently in his home.
[2021-05-20 11:04] LABS: Atypical Lymphocytes Present; Platelet Estimate Adequate (Adequate)
[2021-05-20 12:30] LABS: Glucose Point of Care 188 mg/dl (65-105)
--- NOTE | 2021-05-20 12:44 | PM.DS ---
DS: Admitting Diagnosis Discharge Date 05/20/2021 Admitting Diagnosis syncope DS: Discharge Diagnosis Discharge Diagnosis (1) Syncope: Qualifiers: Syncope type: unspecified Qualified Code(s): R55 - Syncope and collapse Code(s): R55 - Syncope and collapse Status: Acute Assessment and Plan: CT scan of the head is negative Probable vasovagal complicated by hypotension and orthostatic hypotension and pneumonia no hypotension reported in the chart Patient also has COVID-19 pneumonia echo reviewed ejection fraction 55-60%, moderately increased left ventricular wall thickness grade 1 diastolic dysfunction no other valvular abnormality noted PT OT evaluated and cleared for discharge He was initially started on midodrine which was stopped and monitor his blood pressure remained stable off midodrine. (2) Pneumonia due to 2019 novel coronavirus: Code(s): U07.1 - COVID-19; J12.82 - Pneumonia due to coronavirus disease 2019 Status: Acute Assessment and Plan: COVID-19 pneumonia complicated with aspiration pneumonia continue IV antibiotic Started COVID-19 protocol Remdesivir / Dexamethasone 06/28 Stopped remdesivir and dexamethasone as he was never hypoxic during the hospital stay. Will not continue this at discharge (3) Acute hypoxemic respiratory failure: Code(s): J96.01 - Acute respiratory failure with hypoxia Status: Acute Assessment and Plan: Secondary to COVID-19 pneumonia oxygen COVID-19 protocol was started remdesivir and dexamethasone I do not see any hypoxia noted in the chart. start remdesivir and Decadron and no hypoxia was noted. (4) Diabetes mellitus: Code(s): E11.9 - Type 2 diabetes mellitus without complications Status: Acute Assessment and Plan: Insulin sliding scale Uncontrolled Scheduled aspart increase the dose of Lantus most likely related to steroid Increase Lantus to 15 units subQ b.i.d. He uses Lantus 30 units b.i.d. at home which will be continued at the time of discharge DS: Summary Hospital Course Hospital Course: see above Time Spent with Patient Time attestation: Total time spent providing and/or coordinating discharge services: 45 minutes Exam Narrative: GENERAL: The patient is well developed, not in acute distress HEENT: Nonicteric sclerae, PERRLA, EOMI. Oropharynx clear. Moist mucous membranes. Conjunctivae appear well perfused. CHEST: Chest wall is nontender. HEART: Regular rate and rhythm without murmur, rubs, or gallops LUNGS: Clear to auscultation bilaterally. no respiratory distress ABDOMEN: Soft, positive bowel sounds, non-tender, no organomegaly. SKIN: No rash, no excessive bruising, petechiae, or purpura. NEUROLOGIC: Cranial nerves II-XII intact, alert and oriented x 3, no gross motor deficits EXTREMITIES: no edema, cyanosis or clubbing DS: Data Data Completed and Pending Labs on day of discharge: Labs from last 24 hours 05/20/21 05/20/21 05/20/21 12:06 09:45 09:45 WBC 7.5 RBC 5.06 Hgb 13.2 L Hct 41.1 L MCV 81.2 MCH 26.1 MCHC 32.1 RDW 14.3 Plt Count 271 MPV 10.6 H Immature Gran % (Auto) 0.7 H Neut % (Auto) 65.3 Lymph % (Auto) 26.6 [place] % (Auto) 7.0 Eos % (Auto) 0.1 Baso % (Auto) 0.3 Lymph # (Auto) 2.00 [place] # (Auto) 0.5 Eos # (Auto) 0.0 Baso # (Auto) 0.0 Abs Immat Gran (auto) 0.05 H Absolute Neuts (auto) 4.9 Absolute Nucleated RBC 0.0 Nucleated RBC % 0.0 Atypical Lymphocytes Present Platelet Estimate Adequate % Immature Plt Fraction 7.4 PT INR Sodium 139 Potassium 4.0 Chloride 106 Carbon Dioxide 24 Anion Gap 9 BUN 24 H Creatinine 0.70 Estim Creat Clear Calc 101 Estimated GFR > 60 Glucose 223 H POC Capillary Glucose 188 H Calcium 9.5 Ferritin Total Bilirubin 0.5 AST 32 ALT 23 Alkaline Phosphatase 71 C-Reactive Protein 3.9 H Total P
== END 2021-05-20 15:05 | disposition home or self-care (01) | DRG 177 ==
LOC: ANHED 05-17 00:58 → ANH3MEDSUR 05-17 01:01 → ANHCPC 05-17 13:06 → ANHSUROVER 05-17 13:06 → ANH3MEDSUR 05-17 13:51
PROVIDERS: Internal Medicine; Admitting Provider Internal Medicine; Emergency Provider Family Medicine; PCP Internal Medicine; Visit Provider Internal Medicine
DX: U07.1 COVID-19 (principal); J12.82 Pneumonia due to coronavirus disease 2019; J69.0 Pneumonitis due to inhalation of food and vomit; J96.01 Acute respiratory failure with hypoxia; E11.9 Type 2 diabetes mellitus without complications; Z79.4 Long term (current) use of insulin; R32 Unspecified urinary incontinence; I95.1 Orthostatic hypotension; E86.0 Dehydration; Z85.46 Personal history of malignant neoplasm of prostate
CPT/HCPCS: 36415; 70450; 71045; 80053; 82565; 82728; 82948; 83735; 84460; 84484; 85025; 85055; 85610; 86140; 87040; 92610; 93005; 93306; 96360; 97161; 99285; A9270; C9803; J0295; J0696; J1100; J1650; J1815; J3370; J7030; J7040; U0003; U0005

== ENCOUNTER 2021-11-03 19:50 | Inpatient (IN) | payer MEDICARE, SELFPAY ==
[2021-11-03] VITALS (11 sets, daily range): BP systolic 105–142; BP diastolic 71–80; PULSE 110–124; RESP 17–25; TEMP 36.6; O2SAT 97–100
--- NOTE | ~2021-11-03 | US_ITS ---
EXAMINATION: US abdomen limited DATE: 11/04/2021 09:28 INDICATION: Right upper quadrant pain TECHNIQUE: Multiple grayscale and Doppler ultrasound images of limited portions of the abdomen were o btained. COMPARISON: CT abdomen and pelvis 11/03/2021. FINDINGS: Visualized portions of the pancreas are normal. The liver is normal with normal echogenicit y and echotexture. No surface nodularity. Normal hepatopetal flow in the main portal vein. Enlarged g allbladder with irregular wall thickening up to 7 mm, multiple gallstones, and sludge. The normal com mon bile duct measures 6 mm. There was no sonographic Bradford sign, however the presence of confoundin g medication was not indicated. IMPRESSION: 1. Dilated gallbladder with irregular wall thickening, biliary sludge, and multiple gallstones. These findings may reflect acute cholecystitis in the appropriate clinical context. Reviewed, dictated and finalized at location K. IMPRESSION: 1. Dilated gallbladder with irregular wall thickening, biliary sludge, and mult iple gallstones. These findings may reflect acute cholecystitis in the appropri ate clinical context.
--- NOTE | ~2021-11-03 | CT_ITS ---
EXAMINATION: CT abdomen pelvis wo con DATE: 11/07/2021 13:22 INDICATION: Right upper quadrant abdominal pain status post cholecystostomy. TECHNIQUE: Computed tomography (CT) of the abdomen and pelvis was performed without intravenous contr ast. Automated exposure control and iterative reconstruction technique were employed. The dose-length product was 965.04 mGy-cm. COMPARISON: CT abdomen and pelvis 11/03/2021, 05/25/2020 FINDINGS: The visualized portions of the lung bases demonstrate small pleural effusions and mild depe ndent atelectasis. A calcified right lung nodule is consistent with old granulomas disc disease. The heart size is normal. There are coronary artery calcifications. No pericardial effusion. There is [place] ateral gynecomastia. The gallbladder is distended with sludge and stones, wall thickening, and surrou nding fat stranding, consistent with acute cholecystitis. There is a percutaneous cholecystostomy tub e in expected position. Calcifications in the spleen are consistent with old granulomatous disease. T he pancreas and adrenal glands are normal. There are cysts in the kidneys measuring up to 22 mm on th e left. The bladder is markedly distended. There is prominent fat in right inguinal canal that may be a hernia. There is wall thickening of the hepatic flexure of the colon near the gallbladder, consist ent with secondary inflammation. There are no dilated loops of bowel. The appendix is normal. There i s a left external iliac, left common iliac, and left para-aortic lymphadenopathy. For example, a left external iliac node measures 2.6 x 2.0 cm. There is a small volume of perihepatic ascites. There is mild thoracolumbar spondylosis. IMPRESSION: 1. Acute cholecystitis with percutaneous cholecystostomy tube in expected position. 2. Small volume of perihepatic ascites. 3. Small pleural effusions. 4. Markedly distended bladder. 5. Left para-aortic and left pelvic lymphadenopathy suspicious for metastatic prostate cancer. Reviewed, dictated and finalized at location A. IMPRESSION: 1. Acute cholecystitis with percutaneous cholecystostomy tube in expected posit ion. 2. Small volume of perihepatic ascites. 3. Small pleural effusions. 4. Markedly distended bladder. 5. Left para-aortic and left pelvic lymphadenopathy suspicious for metastatic p rostate cancer.
--- NOTE | ~2021-11-03 | US_ITS ---
EXAMINATION: US perc cholecystostomy w imag DATE: 11/07/2021 13:25 INDICATION: Acute cholecystitis. TECHNIQUE: The procedure including the risks, benefits, and alternatives was discussed with the patie nt. Risks discussed included bleeding including infection, hemorrhage, and bile peritonitis. Oral and written consent were obtained. A timeout was performed to verify the patient's name, date of iram h, and procedure to be performed. The patient was confirmed to be receiving appropriate antibiotic co verage. The skin overlying the liver and gallbladder was prepped and draped in usual sterile fashion . Anesthetic was administered with 1% lidocaine subcutaneously. An 8.5 Fr catheter was inserted thr ough liver parenchyma into the gallbladder by trocar technique. The metal stiffener and trocar needle were removed, and the pigtail tip was locked. Bile was aspirated and sent for culture. The catheter was stitched to the skin with suture. The patient reported 9/10 pain after the procedure. FINDINGS: Ultrasound images demonstrate the catheter within the gallbladder. 10 mL bile was aspirated . IMPRESSION: 1. Successful ultrasound-guided cholecystostomy tube placement. 2. 10 mL black bile was sent for aerobic and anaerobic cultures. 3. The catheter will be managed by Dr. Qureshi. A catheter cholangiogram may be performed not less th an 48 hours after tube placement if clinically indicated to assess cystic duct patency. If cholecyste ctomy is not eventually performed and the infectious episode has resolved, the tube may be removed ov er a guidewire, preferably not less than 3 weeks after placement to allow time for a mature catheter tract to form to prevent bile leakage and peritonitis. 4. Due to the patient's right upper quadrant pain after the procedure, I ordered a CT abdomen and pel vis, which showed acute cholecystitis and a small volume of perihepatic ascites. Reviewed, dictated and finalized at location A. IMPRESSION: 1. Successful ultrasound-guided cholecystostomy tube placement. 2. 10 mL black bile was sent for aerobic and anaerobic cultures. 3. The catheter will be managed by Dr. Qureshi. A catheter cholangiogram may be performed not less than 48 hours after tube placement if clinically indicated to assess cystic duct patency. If cholecystectomy is not eventually performed a nd the infectious episode has resolved, the tube may be removed over a guidewir e, preferably not less than 3 weeks after placement to allow time for a mature catheter tract to form to prevent bile leakage and peritonitis. 4. Due to the patient's right upper quadrant pain after the procedure, I ordere d a CT abdomen and pelvis, which showed acute cholecystitis and a small volume of perihepatic ascites.
--- NOTE | ~2021-11-03 | CT_ITS ---
EXAMINATION: CT abdomen pelvis w con DATE: 11/03/2021 21:02 INDICATION: Weakness, nausea vomiting, right-sided mid to lower abdominal pain. TECHNIQUE: Computed tomography (CT) of the abdomen and pelvis was performed without intravenous contr ast. Automated exposure control and iterative reconstruction technique were employed. The dose-length product was 1162.22 mGy-cm. COMPARISON: 05/25/2020. FINDINGS: Lower thorax: Coronary artery calcification. Liver: Mild intrahepatic biliary duct dilation. Biliary/Gallbladder: Distended gallbladder, with wall thickening, irregular mucosal enhancement, and surrounding inflammatory change in the gallbladder fossa/aishwarya hepatis. No gallstone detected. Border line common bile duct dilation, without obstructing stone or mass. Pancreas: Mild pancreatic atrophy. Spleen: Unremarkable. Adrenals:No mass. Kidneys: Bilateral renal cysts and hypodensities that are too small to characterize but also likely r epresent cysts GI tract: No small or large bowel dilation. Appendix not visualized. Mesentery/Peritoneum: No ascites, mass, or free air. Retroperitoneum: No mass. Atherosclerotic abdominal aortic and/or arterial calcifications. Pelvis: Marked bladder distention.. Soft Tissues: Soft tissues and body wall unremarkable. Bones: No acute osseous finding. IMPRESSION: CT findings suggestive of acute cholecystitis in the appropriate clinical context. Reviewed, dictated and finalized at location K. IMPRESSION: CT findings suggestive of acute cholecystitis in the appropriate clinical bob xt.
--- NOTE | ~2021-11-03 | XR_ITS ---
EXAMINATION: XR chest 1V portable Exam Date/Time: 11/03/2021 20:18 CDT HISTORY: WEAKNESS,LETHARGIC,N/V, HIGH BG TODAY HX DIABETIC Comparison: 05/16/2021. RESULT: Lines, tubes, and devices: None. Lungs and pleura: Clear. Cardiomediastinal silhouette: Stable cardiomediastinal silhouette. Other: No acute osseous or upper abdominal finding. IMPRESSION: No acute cardiopulmonary process. Reviewed, dictated and finalized at location K.
--- NOTE | 2021-11-03 19:55 | ECG_ITS ---
Measurements Intervals [place] Rate: 121 P: 34 DC: 155 QRS: -5 QRSD: 101 T: 65 QT: 338 QTc: 480 Interpretive Statements SINUS TACHYCARDIA VOLTAGE CRITERIA FOR LVH BORDERLINE R WAVE PROGRESSION, ANTERIOR LEADS BASELINE WANDER- I, II, V5 ABNORMAL ECG Electronically Signed On 11-03-2021 21:20:15 CDT by [place] D.O.
[2021-11-03 20:07] LABS: Glucose Point of Care 371 mg/dl (65-105)
[2021-11-03 20:19] LABS: Basophils Percent Auto 0.2 % (0.2-1.2); Hematocrit 39.6 % (42.0-52.0); Hemoglobin 12.9 g/dL (14.0-18.0); Immature Granulocyte Absolute 0.08 K/mm3 (0.00-0.031); Immature Granulocyte Percent A 0.5 % (0-0.5); Lymphocytes Absolute Auto 1.16 K/mm3 (0.9-3.2); Lymphocytes Percent Auto 7.6 % (18.3-44.2); Mean Corpuscular HGB Conc 32.6 g/dl (32-36); Mean Corpuscular Hemoglobin 26.1 pg (26-34); Mean Platelet Volume 10.2 fl (7.4-10.4); Monocytes Absolute Auto 1.6 K/mm3 (0.1-0.6); Monocytes Percent Auto 10.3 % (2.6-8.5); Neutrophils Absolute Auto 12.5 K/mm3 (1.3-6.7); Neutrophils Percent Auto 81.4 % (45.5-73.1); Platelet Count Result 245 k/mm3 (150-375); Red Blood Count 4.95 M/mm3 (4.6-6.20); Red Cell Distribution Width 13.9 % (11.5-14.5); White Blood Count 15.3 K/mm3 (4.5-10.0)
[2021-11-03 20:33] LABS: Albumin Level 4.3 g/dL (3.5-5.1); Alkaline Phosphatase 89 U/L (38-126); Anion Gap 11 mmol/L (8-16); Aspartate Amino Transferase 254 U/L (17-59); Bilirubin,Total 1.7 mg/dL (0.2-1.3); Blood Urea Nitrogen 26 mg/dL (9-20); Calcium 9.2 mg/dL (8.4-10.2); Carbon Dioxide 27 mmol/L (22-30); Chloride 101 mmol/L (98-107); Estimated CRCL calculation 62 ml/min; Estimated Glomerular Filt Rate > 60; Glucose 375 mg/dL (65-110); Magnesium 2.1 mg/dL (1.6-2.3); Potassium 3.8 mmol/L (3.4-5.0); Sodium 139 mmol/L (137-145)
[2021-11-03 20:36] LABS: Beta-Hydroxybutyrate/Acetoacetate 0.14 mmol/L (0.02-0.27)
[2021-11-03 20:37] LABS: Alveolar/Arterial O2 Gradient 26.2 mmHg; Base Excess ABG 3.2 mEq/l (+/-2.0); Fractional Inspired Oxygen 21 %; HCO3 ABG 27.8 mEq/l (22.0-26.0); Oxygen Content ABG 17.7 %vol (16.0-22.0); Oxygen Saturation ABG 95.2 % (95.0-100.0); Oxyhemoglobin 93.1 % THb (90.0-100.0); PO2 ABG 73.2 mmHg (80.0-100.0); PO2 FiO2 Ratio Arterial Blood 3.49 %; Total Hemoglobin 13.5 g/dL (12.0-18.0); pH ABG 7.438 (7.350-7.450)
[2021-11-03 20:39] LABS: Modified Allen's Test Pass; Site Drawn LEFT RADIAL
[2021-11-03] MEDS: ONDANSETRON INJ 4 MG/2 ML VIAL IV PUSH (20:39)
[2021-11-03] MEDS: SODIUM CHLORIDE 0.9% IV 1,000 ML 999 ML IV CONT ×2 (20:39→21:40)
[2021-11-03 20:42] LABS: Alanine Aminotransferase 254 U/L (6-50)
[2021-11-03 20:43] LABS: Troponin I < 0.012 ng/mL (0.000-0.034)
[2021-11-03 20:59] LABS: Lactic Acid Reflex 4.6 mmol/L (0.7-2.0)
[2021-11-03 21:23] LABS: Influenza A QL RT-PCR Negative (Negative); Influenza B QL RT-PCR Negative (Negative); SARS-CoV-2 RNA PCR Negative
[2021-11-03 21:25] LABS: Procalcitonin 0.6 ng/mL
--- NOTE | 2021-11-03 21:53 | ED.GENADULT ---
HPI - General Adult General Chief complaint: Weakness Stated complaint: tired, weak/high BG?? Time Seen by Provider: 11/03/21 20:17 History of Present Illness HPI narrative: Patient is 71-year-old gentleman who presents the emergency department with chief complaint of generalized weakness nausea vomiting and right upper quadrant abdominal pain. Patient states that he is a insulin-dependent diabetic and has noticed that as he tries to check his blood sugars its been difficult to get blood whenever he does a fingerstick patient also notes that his blood sugars have been running high for the last 24 to 48 hours states that yesterday started having pain in the right upper quadrant and has had multiple bouts of nausea and vomiting to the point has not been able to keep fluids down. The patient states the pain is worse with movement and improved with rest patient denies fever states that he has had some chills patient denies diarrhea. Related Data Home Medications Medication Instructions Recorded Confirmed aspirin 81 mg tablet 81 mg PO DAILY 05/17/21 05/17/21 insulin glargine 100 unit/mL (3 See Protocol subcut BID 05/17/21 05/17/21 mL) subcutaneous pen (Lantus Solostar U-100 Insulin) Allergies Allergy/AdvReac Type Severity Reaction Status Date / Time No Known Allergies Allergy Verified 11/03/21 19:54 Review of Systems Review of Systems: A 10 system review of systems was completed on the patient and is negative except for what is stated in the HPI. Nursing and ancillary documentation was reviewed. PMFSH Past Medical History Medical History Diabetes Prostate cancer Surgical History Surgical History H/O prostatectomy Social History Social History Smoking status: Never smoker Second hand tobacco smoke exposure: No Alcohol intake: never Substance use: never Spiritual care concerns: No Exam Narrative: GENERAL: Well-appearing, well-nourished, and in no acute distress. HEAD: Normocephalic, atraumatic. EYES: PERRLA and EOMI. ENT: Nares clear, no rhinorrhea or epistaxis. Mucous membranes moist. NECK: Supple. CHEST: Clear to auscultation. No respiratory distress. HEART: Regular rate and rhythm. No murmur heard. Normal peripheral pulses. ABDOMEN: Soft, tender to palpation the right upper quadrant, nondistended, normal active bowel sounds. EXTREMITIES: Normal range of motion. No edema. SKIN: Warm, dry, no rash. NEURO: No focal deficits. Alert and oriented x3. PSYCH: Normal mood and affect. Course Course Emergency Course: EKG interpreted by [facility] sinus tachycardia rate of [address] or [address] depression CT scan showed evidence of a slightly dilated common bile duct and also thickening and inflammation of the gallbladder wall. There is no visualized gallstones present on CT scan. Vital Signs Vital signs: Vital Signs Temperature 36.6 C 11/03/21 19:51 Pulse Rate 124 H 11/03/21 19:51 Respiratory Rate 18 11/03/21 19:51 Blood Pressure 105/71 11/03/21 19:51 Pulse Oximetry 97 11/03/21 19:51 Temperature 36.6 C 11/03/21 19:51 Pulse Rate 111 H 11/03/21 21:45 Respiratory Rate 25 H 11/03/21 21:45 Blood Pressure 142/80 H 11/03/21 21:16 Pulse Oximetry 100 11/03/21 21:45 Medical Decision Making Vital Signs Vital Signs: Vital Signs Temperature 36.6 C 11/03/21 19:51 Pulse Rate 124 H 11/03/21 19:51 Respiratory Rate 18 11/03/21 19:51 Blood Pressure 105/71 11/03/21 19:51 Pulse Oximetry 97 11/03/21 19:51 Temperature 36.6 C 11/03/21 19:51 Pulse Rate 111 H 11/03/21 21:45 Respiratory Rate 25 H 11/03/21 21:45 Blood Pressure 142/80 H 11/03/21 21:16 Pulse Oximetry 100 11/03/21 21:45 Lab Data Result diagrams: 11/03/21 20:12 11/03/21
--- NOTE | 2021-11-03 22:48 | PM.IMHP ---
H&P: HPI History of Present Illness Date/Time: 11/03/21 22:48 Chief Complaint: Nausea and vomiting Narrative: This is a 71-year-old male with past medical history significant for diabetes mellitus. Patient presents to the emergency room due to nausea and vomiting of 1 day duration patient has been unable to keep anything down for the last 24 hours or so and right upper quadrant pain which is nonradiating. Patient has been in his usual state of health up until this point he denies any blood in the vomits, any weight loss, any fevers, rigors, chills, he is usually able to tolerate all his meals, no change in stool character, no changes to his appetite, no cough, no sputum production, no shortness of breath. Preliminary workup was significant for CT of abdomen and pelvis with findings suggestive of acute cholecystitis comprehensive metabolic profile was significant for ALT and AST to 254/254 respectively total bili 1.7. Patient has been admitted for further evaluation, management and treatment. Review of Systems Review of Systems: Nausea, vomiting, right upper quadrant pain. Constitutional: Constitutional: Denies chills, Denies fatigue, Denies fever(s), Denies lethargy, Denies malaise and Denies weakness Eyes: Eyes: Denies change in vision ENT: Denies dysphagia, Denies vertigo, Denies dizziness and Denies odynophagia Cardiovascular: Cardiovascular: Denies chest pain, Denies syncope, Denies irregular heart rhythm, Denies lightheadedness, Denies palpitations and Denies dyspnea on exertion Respiratory: Respiratory: Denies chest congestion, Denies cough, Denies excessive phlegm production, Denies pain on inspiration and Denies dyspnea Gastrointestinal: Gastrointestinal: Reports abdominal pain, Denies hematochezia, Denies change in stool character, Denies coffee ground emesis, Denies dyspepsia, Denies heartburn, Denies diarrhea, Reports nausea and Reports vomiting Genitourinary: Genitourinary: Denies dysuria Musculoskeletal: Musculoskeletal: Denies back pain, Denies arthralgias, Denies joint swelling and Denies muscle weakness Integumentary/Breasts: Skin/Breast: Denies rash Neurologic: Denies focal weakness and Denies Sensory deficit (Neuro) Psychiatric: Psychiatric: Reports no additional psychiatric complaints and Reports as per HPI Endocrine: Endocrine: Denies cold intolerance, Denies fatigue, Denies flushing, Denies heat intolerance, Denies polyphagia, Denies polydipsia and Denies palpitations Hematologic/Lymphatic: Hematologic/Lymphatic: Reports no additional hematologic/lymphatic complaints and Reports as per HPI Allergic/Immunologic: Allergic/Immunologic: Reports no additional allergic/immunologic complaints and Reports as per HPI PMFSH Past Medical History Medical History Diabetes Prostate cancer Surgical History Surgical History H/O prostatectomy Social History Social History Smoking status: Never smoker Second hand tobacco smoke exposure: No Alcohol intake: former Substance use: never Spiritual care concerns: No Meds Home Medications and Allergies Home Medications Medication Instructions Recorded Confirmed Type aspirin 81 mg tablet 81 mg PO DAILY 05/17/21 05/17/21 History insulin glargine 100 unit/mL (3 See Protocol subcut BID 05/17/21 05/17/21 History mL) subcutaneous pen (Lantus Solostar U-100 Insulin) doxycycline hyclate 100 mg tablet 100 mg PO Q12H #10 tabs 05/20/21 Rx guaifenesin 600 mg tablet, 600 mg PO Q12HR #30 tabs 05/20/21 Rx extended release 12 hr (Mucus Relief ER) Allergies Allergy/AdvReac Type Severity Reaction Status Date / Time No Known Allergies Allergy Verified 11/03/21 19:54 Vital Signs Vital Signs - 24 hr 11/03/21 19:51 11/03/21 20:10 11/03/21 20:00 Temperat
[2021-11-03 23:43] LABS: Reflex Lactic Acid Yes or No Add Lactic
--- NOTE | 2021-11-04 00:06 | ADMGEN ---
This patient, Jai Escobar Jr., was admitted to Medical Room 344-01. Patient/family oriented to hospital policies and general routines including ID bracelet, bed and alarms, visiting hours, pain management, procedures, bathroom and other care routines, personal items, smoking policy, room service/diet, and visiting hours. Information on how to activate the Rapid Response Team has been discussed. Patient/Family are encouraged to report perceived risks to care and to ask questions if they do not understand what they are told or what they should do.
[2021-11-04 00:07] VITALS: BP 151/85; PULSE 110; RESP 20; TEMP 36.8; O2SAT 95
[2021-11-04 00:08] VITALS: BMI 27.0
[2021-11-04] MEDS: SODIUM CHLORIDE 0.9% IV 1,000 ML 125 ML IV CONT ×2 (00:08→23:41)
[2021-11-04 00:12] LABS: Appearance Urine Clear (Clear); Bilirubin Urine Negative (Negative); Blood Urine 1+ (Negative); Color Urine Yellow (Yellow); Glucose Urine UA Trace mg/dL (Negative); Ketones Urine Negative (Negative); Leukocyte Esterase Ur 1+ LEU/UL (Negative); Nitrate Urine Positive (Negative); Protein Urine 1+ mg/dL (Negative); Specific Grav Ur 1.015 (1.001-1.035); Urobilinogen Urine 0.2 mg/dL (<2.0)
[2021-11-04 00:17] LABS: Bacteria Urine Trace /hpf; Mucus Urine Rare /lpf; RBC Urine 0-2 /hpf (0-2); WBC Urine 21-30 /hpf
[2021-11-04 00:19] LABS: Add Urine Microscopic? YES
[2021-11-04 01:26] LABS: Lactic Acid 2.2 mmol/L (0.7-2.0)
[2021-11-04 01:41] LABS: Troponin I < 0.012 ng/mL (0.000-0.034)
[2021-11-04 05:10] VITALS: BP 125/75; PULSE 105; RESP 20; TEMP 36.9; O2SAT 100
[2021-11-04 07:52] LABS: Glucose Point of Care 221 mg/dl (65-105)
--- NOTE | 2021-11-04 10:52 | PM.IMPN ---
Progress Note: A&P Assessment and Plan (1) Cholecystitis: Code(s): K81.9 - Cholecystitis, unspecified Status: Acute Assessment and Plan: Zosyn, surgery consult, right upper quadrant ultrasound pending (2) Intractable nausea and vomiting: Code(s): R11.2 - Nausea with vomiting, unspecified Status: Acute Assessment and Plan: Likely secondary to 1. Supportive care NPO (3) Type 2 diabetes mellitus: Code(s): E11.9 - Type 2 diabetes mellitus without complications Status: Acute Assessment and Plan: Continue home meds Continue to monitor Patient is only on Lantus at home Will add a insulin sliding scale as needed (4) Abnormal liver enzymes: Code(s): R74.8 - Abnormal levels of other serum enzymes Status: Acute Assessment and Plan: Likely secondary to cholestatic picture Right upper quadrant ultrasound pending CT of abdomen and pelvis reviewed Trend LFTs General surgery consult pending (5) Right upper quadrant pain: Code(s): R10.11 - Right upper quadrant pain Status: Acute Assessment and Plan: Likely secondary to acute cholecystitis Supportive care CT abdomen and pelvis reviewed (6) UTI (urinary tract infection): Code(s): N39.0 - Urinary tract infection, site not specified Status: Acute Assessment and Plan: Abnormal urinalysis concerning for UTI, started on Zosyn on November 03, 2021, follow urine cultures Subjective Date/time seen: 11/04/21 10:52 Interval history: Patient states he feels much better since coming in. He does not need anything for a while now, and thinks this is why his symptoms are better. No overnight events noted. No chest pain or shortness of breath. No nausea, vomiting or diarrhea. No fevers or chills. Review of Systems Review of Systems: 12 point review of systems was assessed and was negative except as noted in the HPI Exam Narrative: General: No acute distress, alert and oriented per baseline HEENT: Atraumatic, normocephalic, mucous membranes moist CV: Regular rate and rhythm, S1, S2 Lungs: Clear to auscultation bilaterally, no rales or crackles noted, no wheezes, good air entry Abdomen: Soft, nontender, nondistended Extremities: Normal to inspection Skin: No rashes noted, no lesions or wounds seen Psych: Euthymic, normal affect Objective Data Vital Signs Vital Signs: Vital Signs - 24 hr 11/03/21 19:51 11/03/21 20:10 11/03/21 20:00 Temperature 97.9 F Pulse Rate 124 H 122 H 124 H Respiratory Rate 18 22 H Blood Pressure 105/71 Pulse Oximetry 97 97 11/03/21 20:01 11/03/21 20:15 11/03/21 20:33 Temperature Pulse Rate 124 H 120 H 120 H Respiratory Rate 20 20 22 H Blood Pressure 105/71 Pulse Oximetry 98 99 11/03/21 21:15 11/03/21 21:16 11/03/21 21:43 Temperature Pulse Rate 110 H Respiratory Rate 17 24 H 17 Blood Pressure 142/80 H Pulse Oximetry 100 100 100 11/03/21 21:45 11/03/21 23:39 11/04/21 00:07 Temperature 98.2 F Pulse Rate 111 H 116 H 110 H Respiratory Rate 25 H 20 20 Blood Pressure 151/85 H Pulse Oximetry 100 97 95 11/04/21 05:10 Temperature 98.4 F Pulse Rate 105 H Respiratory Rate 20 Blood Pressure 125/75 Pulse Oximetry 100 Intake/Output Intake/Output: Intake & Output 11/01/21 11/02/21 11/03/21 11/04/21 23:59 23:59 23:59 23:59 Intake Total 2049 Output Total 0 Balance 2049 -1129 Meds/Results Medications: Active Medications Generic Name Dose Route Start Last Admin Trade Name Freq PRN Reason Stop Dose Admin Piperacillin/Tazobactam/Dextrose 3.375 gm in 50 mls @ 100 mls/hr 11/04/21 06:00 11/04/21 06:27 Zosyn 3.375 Gm/D5w 50ml Pm IVPB 100 mls/hr Q6H HANY Administration Sodium Chloride 1,000 mls @ 125 mls/hr 11/03/21 22:50 11/04/21 00:08 Normal Saline Iv IV CONT 125 mls/hr .Q8H HANY Administration Morphine Sulfate 4 mg 11/03/21 22:49 Morphine Sulf
[2021-11-04 11:29] LABS: Glucose Point of Care 241 mg/dl (65-105)
--- NOTE | 2021-11-04 12:52 | PM.CNGS ---
Assessment and Plan Assessment and plan (1) Right upper quadrant pain: Code(s): R10.11 - Right upper quadrant pain Status: Acute (2) Abnormal liver enzymes: Code(s): R74.8 - Abnormal levels of other serum enzymes Status: Acute (3) Type 2 diabetes mellitus: Code(s): E11.9 - Type 2 diabetes mellitus without complications Status: Acute (4) Cholelithiasis and acute cholecystitis with obstruction: Code(s): K80.01 - Calculus of gallbladder with acute cholecystitis with obstruction Status: Acute Assessment and Plan: I reviewed the patient's CT scan and ultrasound with Dr. Santos in Radiology. Patient does have sludge and stones in his gallbladder and the gallbladder wall is thickened. His labs today look slightly better while he has had about 12 hours of antibiotics. For now will let Medicine continue work with his diabetes and get that under better control. Most likely will think about scheduling him for a laparoscopic cholecystectomy with intraoperative cholangiogram possible open cholecystectomy for Friday of this week. Will repeat labs BMP, padded profile, CBC in a.m.. History of Present Illness Consult details Consult date: 11/04/21 Reason for consult: abdominal pain (Presented to ED with less than 24 hours of epigastric right upper quadrant pain) Requesting physician: Dawit Sutherland MD Narrative: This is a 71-year-old Black male with a past medical history significant for diabetes mellitus and prostate cancer Status post robotic prostatectomy at [facility] 2018.? Patient presented to the emergency room last night due to nausea and vomiting of 1 day duration. The patient has been unable to keep anything down for the last 24 hours or so and c/o right upper quadrant abd. pain which is nonradiating.? Patient has been in his usual state of health up until this point. He denies any blood in the vomitus, any weight loss, fevers, rigors, or chills, and he is usually able to tolerate all his meals. There have been no changes in stool character, no changes to his appetite, no cough, no sputum production, no shortness of breath.? workup in the emergency room showed significant for CT of abdomen and pelvis with findings suggestive of acute cholecystitis and a comprehensive metabolic profile was significant for ALT and AST to 254/254 respectively and a total bili of 1.7.? Patient has been admitted for further evaluation, management and treatment.I have and consulted emergency room and asked them order an ultrasound last night because the CT scan did show any stones in the gallbladder although his symptoms were somewhat suggestive of this. With further questioning patient states that his supper on Friday night baked chicken and dressing gravy that he had bought put on the dressing. He was feeling well when he went to sleep Friday night had the pain and vomiting immediately upon waking the following morning. Review of Systems Review of Systems: All systems reviewed & are unremarkable except as noted in HPI and below (HPI) Constitutional: Constitutional: Reports as per HPI, Denies chills and Denies fever(s) Eyes: Eyes: Reports no additional eye complaints ENT: Reports Normal hearing present and Denies dizziness Cardiovascular: Cardiovascular: Reports no additional cardiovascular complaints, Denies chest pain and Denies irregular heart rhythm Respiratory: Respiratory: Reports no additional respiratory complaints Gastrointestinal: Gastrointestinal: Reports no additional gastrointestinal complaints and Denies bloating Comments: No history of known cholelithiasis. He has several older sisters and 1 younger brother no but he has had gallbladder problems. He does not remember his mother or father having gallbladder issues. Genitourinary: Genitourinary: Denies hematuria, Denies dysuria and Reports other ( occasional 1 time per night nocturia) Comments: no recent history of
[2021-11-04 13:30] LABS: Basophils Percent Auto 0.2 % (0.2-1.2); Eosinophils Percent Auto 0.1 % (0-4.4); Hematocrit 39.5 % (42.0-52.0); Hemoglobin 12.3 g/dL (14.0-18.0); Immature Granulocyte Absolute 0.06 K/mm3 (0.00-0.031); Immature Granulocyte Percent A 0.4 % (0-0.5); Lymphocytes Absolute Auto 1.88 K/mm3 (0.9-3.2); Lymphocytes Percent Auto 12.6 % (18.3-44.2); Mean Corpuscular HGB Conc 31.1 g/dl (32-36); Mean Corpuscular Hemoglobin 26.3 pg (26-34); Mean Corpuscular Volume 84.4 fl (80-100); Mean Platelet Volume 10.2 fl (7.4-10.4); Monocytes Percent Auto 13.2 % (2.6-8.5); Neutrophils Percent Auto 73.5 % (45.5-73.1); Platelet Count Result 207 k/mm3 (150-375); Red Blood Count 4.68 M/mm3 (4.6-6.20); Red Cell Distribution Width 14.2 % (11.5-14.5); White Blood Count 14.9 K/mm3 (4.5-10.0)
[2021-11-04 13:43] LABS: Alanine Aminotransferase 253 U/L (6-50); Albumin Level 3.7 g/dL (3.5-5.1); Alkaline Phosphatase 96 U/L (38-126); Anion Gap 3 mmol/L (8-16); Aspartate Amino Transferase 146 U/L (17-59); Bilirubin,Total 1.5 mg/dL (0.2-1.3); Blood Urea Nitrogen 18 mg/dL (9-20); Calcium 8.2 mg/dL (8.4-10.2); Carbon Dioxide 26 mmol/L (22-30); Chloride 109 mmol/L (98-107); Estimated CRCL calculation 94 ml/min; Estimated Glomerular Filt Rate > 60; Glucose 232 mg/dL (65-110); Lipase 17 U/L (23-300); Potassium 4.3 mmol/L (3.4-5.0); Sodium 138 mmol/L (137-145)
[2021-11-04 14:00] VITALS: BP 131/79; PULSE 114; RESP 16; TEMP 35.9; O2SAT 97
[2021-11-04 14:11] LABS: Hemoglobin A1C 8.8 % (<5.7)
[2021-11-04 17:08] LABS: Glucose Point of Care 247 mg/dl (65-105)
[2021-11-04] MEDS: INSULIN ASPART (*BKC) 100 UNITS/ML SUB-Q (18:37)
[2021-11-04 20:00] VITALS: PULSE 100; RESP 16; O2SAT 97
[2021-11-04 21:14] LABS: Glucose Point of Care 319 mg/dl (65-105)
[2021-11-04 22:00] VITALS: BP 115/83; PULSE 100; RESP 16; TEMP 36.6; O2SAT 97
[2021-11-05 00:09] LABS: Glucose Point of Care 254 mg/dl (65-105)
[2021-11-05 05:31] LABS: Basophils Percent Auto 0.2 % (0.2-1.2); Eosinophils Absolute Auto 0.1 K/mm3 (0-0.3); Eosinophils Percent Auto 0.8 % (0-4.4); Hemoglobin 11.5 g/dL (14.0-18.0); Immature Granulocyte Absolute 0.08 K/mm3 (0.00-0.031); Immature Granulocyte Percent A 0.6 % (0-0.5); Lymphocytes Absolute Auto 1.98 K/mm3 (0.9-3.2); Mean Corpuscular HGB Conc 32.9 g/dl (32-36); Mean Corpuscular Hemoglobin 26.7 pg (26-34); Mean Corpuscular Volume 81.2 fl (80-100); Mean Platelet Volume 10.7 fl (7.4-10.4); Monocytes Absolute Auto 1.7 K/mm3 (0.1-0.6); Monocytes Percent Auto 13.9 % (2.6-8.5); Neutrophils Absolute Auto 8.5 K/mm3 (1.3-6.7); Neutrophils Percent Auto 68.5 % (45.5-73.1); Platelet Count Result 216 k/mm3 (150-375); Red Blood Count 4.31 M/mm3 (4.6-6.20); Red Cell Distribution Width 13.6 % (11.5-14.5); White Blood Count 12.4 K/mm3 (4.5-10.0)
[2021-11-05 05:42] LABS: Alanine Aminotransferase 220 U/L (6-50); Albumin Level 3.3 g/dL (3.5-5.1); Alkaline Phosphatase 109 U/L (38-126); Anion Gap 4 mmol/L (8-16); Aspartate Amino Transferase 96 U/L (17-59); Bilirubin,Total 1.1 mg/dL (0.2-1.3); Blood Urea Nitrogen 14 mg/dL (9-20); Calcium 8.1 mg/dL (8.4-10.2); Carbon Dioxide 28 mmol/L (22-30); Chloride 108 mmol/L (98-107); Estimated CRCL calculation 83 ml/min; Estimated Glomerular Filt Rate > 60; Glucose 224 mg/dL (65-110); Potassium 3.4 mmol/L (3.4-5.0); Sodium 140 mmol/L (137-145)
[2021-11-05 06:00] VITALS: BP 101/51; PULSE 66; RESP 16; TEMP 36.9; O2SAT 97
[2021-11-05 07:41] LABS: Glucose Point of Care 197 mg/dl (65-105)
[2021-11-05 07:41] LABS: Glucose Point of Care 212 mg/dl (65-105)
[2021-11-05 08:15] VITALS: PULSE 102; RESP 18; O2SAT 93
[2021-11-05 11:32] LABS: Glucose Point of Care 299 mg/dl (65-105)
[2021-11-05] MEDS: INSULIN ASPART (*BKC) 100 UNITS/ML SUB-Q ×2 (11:51→16:40)
--- NOTE | 2021-11-05 13:01 | PM.IMPN ---
Progress Note: A&P Assessment and Plan (1) Cholecystitis: Code(s): K81.9 - Cholecystitis, unspecified Status: Acute Assessment and Plan: Patient presented with nausea and vomiting. CT of the abdomen showed finding suggestive of acute cholecystitis Appreciate general surgery consultation Right upper quadrant ultrasound showed dilated gallbladder with a regular wall thickening and multiple gallstones, normal common bile duct without evidence of choledocholithiasis Continue IV Zosyn Planning for laparoscopic cholecystectomy tomorrow, 11/06/2021 Continue with clear liquids today. NPO at midnight (2) Intractable nausea and vomiting: Code(s): R11.2 - Nausea with vomiting, unspecified Status: Acute Assessment and Plan: Resolved. Secondary to above Antiemetics available as needed (3) Type 2 diabetes mellitus: Code(s): E11.9 - Type 2 diabetes mellitus without complications Status: Acute Assessment and Plan: A1c is 8.8. Blood sugars have been slightly above target this admission, today ranging from 200-300 Lantus has been held as the patient was NPO Continue sliding scale insulin, increased to moderate dose Continue with Accu-Cheks and hypoglycemic protocol Will resume Lantus at decreased dose for this evening as patient will be NPO tomorrow. Adjust insulin as needed following procedure for glucose control Monitor glucose trends (4) Abnormal liver enzymes: Code(s): R74.8 - Abnormal levels of other serum enzymes Status: Acute Assessment and Plan: Likely secondary to cholecystitis Trending down Continue to monitor (5) UTI (urinary tract infection): Code(s): N39.0 - Urinary tract infection, site not specified Status: Acute Assessment and Plan: UA abnormal, urine culture with growth of >100k Klebsiella pneumonia Patient remains on Zosyn for acute cholecystitis, continue this while awaiting final susceptibility report Subjective Date/time seen: 11/05/21 13:01 Interval history: Date of service: 11/05/2021 Jai Escobar is a 71-year-old male with a history of type 2 diabetes mellitus and prostate cancer who is seen in follow-up for acute cholecystitis. He is today. Does endorse right upper quadrant pain that is worse if he coughs or moves his trunk. He denies nausea or vomiting. He has been tolerating liquids. He did have a regular formed bowel movement today. Denies fevers, chills, dizziness, lightheadedness, weakness. Denies urinary symptoms. No shortness breath, cough, or chest pain. Review of Systems Review of Systems: All systems reviewed & are unremarkable except as noted in HPI and below Exam Narrative: General: Well-nourished, well-appearing 71-year-old male, sitting up in bed, comfortable, NARD Neuro: awake, alert and oriented x4, speech clear, no focal neuro deficits noted HEENMT: normocephalic, atraumatic, EOMI, sclerae anicteric Respiratory: clear to auscultation bilaterally, nonlabored breathing Cardio: regular rate, regular rhythm with S1-S2 Abdomen: nondistended, normoactive bowel sounds, soft, mildly tender to palpation in RUQ Extremities: no edema, erythema, or tenderness to palpation, DP pulses 2+ bilaterally Skin: no rashes or lesions, warm and dry Psych: appropriate mood and affect, judgment and insight intact Objective Data Vital Signs Vital Signs: Vital Signs - 24 hr 11/04/21 14:00 11/04/21 22:00 11/04/21 20:00 Temperature 96.6 F L 97.9 F Pulse Rate 114 H 100 100 Respiratory Rate 16 16 16 Blood Pressure 131/79 115/83 Pulse Oximetry 97 97 97 Oxygen Delivery Room Air 11/05/21 06:00 11/05/21 08:15 Temperature 98.4 F Pulse Rate 66 102 H Respiratory Rate 16 18 Blood Pressure 101/51 L Pulse Oximetry 97 93 Oxygen Delivery Room Air Intake/Output Intake/Output: Intake & Output 11/02/21 11/03/21 11/04/21 11/05/21 23:59 23:59 23:59 23:5
[2021-11-05 13:48] VITALS: BP 124/65; PULSE 89; RESP 16; TEMP 35.8; O2SAT 97
--- NOTE | 2021-11-05 14:31 | PCNSR ---
On 11/05/21, the student, Tree Mitchell, provided care and completed [facility] documentation on this patient. I have reviewed the student's documentation and agree with the findings.
--- NOTE | 2021-11-05 14:39 | WPDANESEPPF ---
Anes - Initial Pre Proc Eval Procedure: Operation Date: 11/06/21 13:00 Proposed Procedures p Laparoscopic Cholecystectomy,Possible Intraoperative Cholangiograms,Possible Open - Edmund Qureshi MD Date/Time: 11/05/21 14:39 Surgeon: Dori Verdugo PA-C Pre Op Diagnosis: Nausea vomiting right upper quadrant abdominal Patient Data Age: 71 Gender: M Height: 1.85 m Weight: 93 kg Last Vital Signs Temp 35.8 C L 11/05/21 13:48 Pulse 89 11/05/21 13:48 Resp 16 11/05/21 13:48 BP 124/65 11/05/21 13:48 Pulse Ox 97 11/05/21 13:48 O2 Del Method Room Air 11/05/21 08:15 Allergies Allergy/AdvReac Type Severity Reaction Status Date / Time No Known Allergies Allergy Verified 11/04/21 04:56 Home Medications Medication Instructions Recorded Confirmed Type aspirin 81 mg tablet 81 mg PO DAILY 05/17/21 11/04/21 History insulin glargine 100 unit/mL (3 30 unit subcut BID 05/17/21 11/04/21 History mL) subcutaneous pen (Lantus Solostar U-100 Insulin) Laboratory Tests 11/04/21 11/04/21 11/04/21 17:00 17:17 21:11 WBC RBC Hgb Hct MCV MCH MCHC RDW Plt Count MPV Immature Gran % (Auto) Neut % (Auto) Lymph % (Auto) [place] % (Auto) Eos % (Auto) Baso % (Auto) Lymph # (Auto) [place] # (Auto) Eos # (Auto) Baso # (Auto) Abs Immat Gran (auto) Absolute Neuts (auto) Absolute Nucleated RBC Nucleated RBC % Sodium Potassium Chloride Carbon Dioxide Anion Gap BUN Creatinine Estim Creat Clear Calc Estimated GFR Glucose POC Capillary Glucose 247 mg/dl H mg/dl 319 mg/dl H mg/dl (65-105) (65-105) Calcium Total Bilirubin Direct Bilirubin AST ALT Alkaline Phosphatase Total Protein Albumin Stool H. pylori Ag Pending 11/05/21 11/05/21 11/05/21 00:07 05:22 05:22 WBC 12.4 K/mm3 H K/mm3 (4.5-10.0) RBC 4.31 M/mm3 L M/mm3 (4.6-6.20) Hgb 11.5 g/dL L g/dL (14.0-18.0) Hct 35.0 % L % (42.0-52.0) MCV 81.2 fl fl (80-100) MCH 26.7 pg pg (26-34) MCHC 32.9 g/dl g/dl (32-36) RDW 13.6 % % (11.5-14.5) Plt Count 216 k/mm3 k/mm3 (150-375) MPV 10.7 fl H fl (7.4-10.4) Immature Gran % (Auto) 0.6 % H % (0-0.5) Neut % (Auto) 68.5 % % (45.5-73.1) Lymph % (Auto) 16.0 % L % (18.3-44.2) [place] % (Auto) 13.9 % H % (2.6-8.5) Eos % (Auto) 0.8 % % (0-4.4) Baso % (Auto) 0.2 % % (0.2-1.2) Lymph # (Auto) 1.98 K/mm3 K/mm3 (0.9-3.2) [place] # (Auto) 1.7 K/mm3 H K/mm3 (0.1-0.6) Eos # (Auto) 0.1 K/mm3 K/mm3 (0-0.3) Baso # (Auto) 0.0 K/mm3 K/mm3 (0.0-0.1) Abs Immat Gran (auto) 0.08 K/mm3 H K/mm3 (0.00-0.031) Absolute Neuts (auto) 8.5 K/mm3 H K/mm3 (1.3-6.7) Absolute Nucleated RBC 0.0 K/mm3 K/mm3 (0.0-0.012) Nucleated RBC % 0.0 % % (0.0-0.2) Sodium 140 mmol/L mmol/L (137-145) Potassium 3.4 mmol/L mmol/L (3.4-5.0) Chloride 108 mmol/L H mmol/L (98-107) Carbon Dioxide 28 mmol/L mmol/L (22-30) Anion Gap 4 mmol/L L mmol/L (8-16) BUN 14 mg/dL mg/dL (9-20) Creatinine 0.80 mg/dL mg/dL (0.7-1.3) Estim Creat Clear Calc 83 ml/min ml/min Estimated GFR > 60 (59 - ) Glucose 224 mg/dL H mg/dL (65-110) POC Capillary Glucose 254 mg/dl
[2021-11-05 16:31] LABS: Glucose Point of Care 205 mg/dl (65-105)
[2021-11-05] MEDS: SODIUM CHLORIDE 0.9% IV 1,000 ML 125 ML IV CONT (16:43)
--- NOTE | 2021-11-05 16:44 | PM.PNGS ---
Progress Note: A&P Assessment and Plan (1) Cholelithiasis and acute cholecystitis with obstruction: Code(s): K80.01 - Calculus of gallbladder with acute cholecystitis with obstruction Status: Acute Assessment and Plan: Imaging suggests acute cholecystitis with gallstones and sludge in his gallbladder. WBC trending down. LFTs trending down. We have added the patient onto the surgery schedule for tomorrow for a laparoscopic cholecystectomy, possible open, with IOC by Dr. Qureshi. Description of the procedure, risks, benefits, expected outcomes, and expected recovery were discussed with the patient in detail. He agrees to proceed. Will repeat labs tomorrow. Continue IV antibiotics. Will make NPO after midnight. (2) Abnormal liver enzymes: Code(s): R74.8 - Abnormal levels of other serum enzymes Status: Acute Assessment and Plan: LFTs trending down. Will plan to do an intraoperative cholangiogram during his cholecystectomy to evaluate for any filling defects in the common bile duct (3) Type 2 diabetes mellitus: Code(s): E11.9 - Type 2 diabetes mellitus without complications Status: Acute Plan I have discussed the patient's case and plan of care with Dr. Qureshi. Subjective Subjective Date/Time Seen: 11/05/21 13:44 Patient reports: no new complaints, feels better, pain is less, tolerating liquids well, flatus and afebrile Interval history: This is a 71-year-old male who presented to the ER with right upper quadrant abdominal pain. CT scan and right upper quadrant ultrasound suggest acute cholecystitis with biliary sludge and multiple gallstones. He presented with leukocytosis and elevated LFTs. He was admitted and started on IV antibiotics. Chart reviewed. Patient seen and examined. He reports still having right upper quadrant abdominal pain, but somewhat improved. No nausea or vomiting. Tolerating clear liquids. No other complaints at this time. Review of Systems Review of Systems: All systems reviewed & are unremarkable except as noted in HPI and below Exam Const: General: comfortable and no acute distress Orientation/consciousness: patient oriented x3 GI: Inspection: non-distended GI Palp: Yes Soft to palpation, Yes Tenderness to palpation present (GI) (RUQ), No Guarding due to palpation present (GI) and No Rebound tenderness present Auscultation: normal bowel sounds Neuro: General: moves all extremities and no focal motor deficits Extrem: General: normal to inspection Psych: Mental Status: mental status grossly normal Insight: Good insight present (Psych) Objective Data Vital Signs Vital Signs: Vital Signs - 24 hr 11/04/21 22:00 11/04/21 20:00 11/05/21 06:00 Temperature 97.9 F 98.4 F Pulse Rate 100 100 66 Respiratory Rate 16 16 16 Blood Pressure 115/83 101/51 L Pulse Oximetry 97 97 97 Oxygen Delivery Room Air 11/05/21 08:15 11/05/21 13:48 Temperature 96.5 F L Pulse Rate 102 H 89 Respiratory Rate 18 16 Blood Pressure 124/65 Pulse Oximetry 93 97 Oxygen Delivery Room Air Intake/Output Intake/Output: Intake & Output 11/02/21 11/03/21 11/04/21 11/05/21 23:59 23:59 23:59 23:59 Intake Total 20490 Output Total 1130 Balance 2049 Meds/Results Medications: Active Medications Generic Name Dose Route Start Last Admin Trade Name Freq PRN Reason Stop Dose Admin Dextrose 12.5 gm 11/04/21 13:56 Dextrose 50% 25 Gm/50 Ml Syringe IV PUSH PRN PRN Hypoglycemia Protocol Fentanyl Citrate 25 mcg 11/05/21 13:48 Fentanyl Citrate Inj (*Crx) 100 Mcg/2 Ml Vial IV PUSH Q2M PRN Pain Glucagon 1 mg 11/04/21 13:56 Glucagon For Inj 1 Mg Vial IM PRN PRN Hypoglycemia Protocol Glucose 15 gm 11/04/21 13:56 Glucose Oral Gel 15 Gm Of Glucse In 37.5 Gm Tube PO PRN PRN Hypoglycemia Protocol Piperacillin/Tazobactam/Dextrose 3.375 gm in 50 mls @ 100
[2021-11-05 20:00] VITALS: PULSE 89; RESP 18; O2SAT 98
[2021-11-05 20:26] VITALS: BP 131/80; PULSE 89; RESP 18; TEMP 36.2; O2SAT 98
[2021-11-05] MEDS: INSULIN GLARGINE (*BKC) 100 UNITS/ML 15 UNITS SUB-Q (20:56)
[2021-11-05 21:00] LABS: Glucose Point of Care 270 mg/dl (65-105)
[2021-11-06] VITALS (13 sets, daily range): BP systolic 126–148; BP diastolic 63–91; PULSE 69–95; RESP 11–22; TEMP 36.1–37.4; O2SAT 95–100
[2021-11-06 00:14] LABS: Glucose Point of Care 222 mg/dl (65-105)
[2021-11-06 05:28] LABS: Glucose Point of Care 173 mg/dl (65-105)
[2021-11-06 05:55] LABS: Hematocrit 33.4 % (42.0-52.0); Hemoglobin 10.7 g/dL (14.0-18.0); Mean Corpuscular Hemoglobin 26.4 pg (26-34); Mean Corpuscular Volume 82.5 fl (80-100); Mean Platelet Volume 10.3 fl (7.4-10.4); Platelet Count Result 226 k/mm3 (150-375); Red Blood Count 4.05 M/mm3 (4.6-6.20); Red Cell Distribution Width 13.4 % (11.5-14.5); White Blood Count 11.4 K/mm3 (4.5-10.0)
[2021-11-06 06:26] LABS: Alanine Aminotransferase 150 U/L (6-50); Albumin Level 3.3 g/dL (3.5-5.1); Alkaline Phosphatase 107 U/L (38-126); Anion Gap 2 mmol/L (8-16); Aspartate Amino Transferase 47 U/L (17-59); Bilirubin,Total 0.8 mg/dL (0.2-1.3); Blood Urea Nitrogen 8 mg/dL (9-20); Calcium 7.8 mg/dL (8.4-10.2); Carbon Dioxide 29 mmol/L (22-30); Chloride 107 mmol/L (98-107); Estimated CRCL calculation 94 ml/min; Estimated Glomerular Filt Rate > 60; Glucose 164 mg/dL (65-110); Potassium 3.2 mmol/L (3.4-5.0); Sodium 138 mmol/L (137-145)
[2021-11-06 06:47] LABS: Lipase < 10 U/L (23-300)
--- NOTE | 2021-11-06 08:03 | PM.IMPN ---
Progress Note: A&P Assessment and Plan (1) Cholecystitis: Code(s): K81.9 - Cholecystitis, unspecified Status: Acute Assessment and Plan: Patient presented with nausea and vomiting. CT of the abdomen showed finding suggestive of acute cholecystitis Appreciate general surgery consultation Right upper quadrant ultrasound showed dilated gallbladder with a regular wall thickening and multiple gallstones, normal common bile duct without evidence of choledocholithiasis Continue IV Zosyn Planning for laparoscopic cholecystectomy this afternoon NPO diet today. (2) Intractable nausea and vomiting: Code(s): R11.2 - Nausea with vomiting, unspecified Status: Acute Assessment and Plan: Resolved. Secondary to above Antiemetics available as needed (3) Type 2 diabetes mellitus: Code(s): E11.9 - Type 2 diabetes mellitus without complications Status: Acute Assessment and Plan: A1c is 8.8. Blood sugars have been slightly above target this admission, today ranging from 200-300 Lantus resumed at reduced rate as PO intake was decreased Blood sugars improved with fasting blood sugar 170 this morning Continue moderate dose sliding scale insulin, Accu-Cheks and hypoglycemic protocol Adjust insulin as needed as diet is advanced following procedure for appropriate control Monitor glucose trends (4) Abnormal liver enzymes: Code(s): R74.8 - Abnormal levels of other serum enzymes Status: Acute Assessment and Plan: Likely secondary to cholecystitis Trending down. Levels have normalized with exception of ALT which continues to trend down Continue to monitor (5) UTI (urinary tract infection): Code(s): N39.0 - Urinary tract infection, site not specified Status: Acute Assessment and Plan: UA abnormal, urine culture with growth of >100k Klebsiella pneumonia Patient remains on Zosyn for acute cholecystitis Susceptibility report pending, tailor antibiotics accordingly (6) Hypokalemia: Code(s): E87.6 - Hypokalemia Status: Acute Assessment and Plan: Potassium 3.2 today 40 mEq IV KCl Monitor BMP Subjective Date/time seen: 11/06/21 08:03 Interval history: Date of service: 11/06/2021 Jai Escobar is a 71-year-old male with a history of type 2 diabetes mellitus and prostate cancer who is seen in follow-up for acute cholecystitis. He is feeling well today. He continues to have right upper quadrant discomfort that he states is a sharp pain that occurs if he coughs or moves. He denies nausea or vomiting. He was tolerating his diet yesterday. He is NPO today. He denies fever, chills, dizziness, lightheadedness. He has been able to ambulate to the bathroom without difficulty. He denies dysuria or hematuria. He had a bowel movement yesterday. Denies SOB, chest pain, palpitations. Review of Systems Review of Systems: All systems reviewed & are unremarkable except as noted in HPI and below Exam Narrative: General: Well-nourished, well-appearing 71-year-old male, sitting up in bed, comfortable, NARD Neuro: awake, alert and oriented x4, speech clear, no focal neuro deficits noted HEENMT: normocephalic, atraumatic, EOMI, sclerae anicteric Respiratory: clear to auscultation bilaterally, nonlabored breathing Cardio: regular rate, regular rhythm with S1-S2 Abdomen: nondistended, normoactive bowel sounds, soft, tender to palpation in RUQ : no CVA tenderness Extremities: no edema, erythema, or tenderness to palpation, DP pulses 2+ bilaterally Skin: no rashes or lesions, warm and dry Psych: appropriate mood and affect, judgment and insight intact Objective Data Vital Signs Vital Signs: Vital Signs - 24 hr 11/05/21 08:15 11/05/21 13:48 11/05/21 20:26 Temperature 96.5 F L 97.2 F L Pulse Rate 102 H 89 89 Respiratory Rate 18 16 18 Blood Pressure 124/65 131/80 Pulse Oximetry 93 97 98 Oxyge
[2021-11-06] MEDS: POTASSIUM CHLORIDE INJ 40 MEQ in SODIUM CHLORIDE 0.9% IV 500 ML 130 MEQ IVPB (08:15)
--- NOTE | 2021-11-06 09:09 | WPDHPUPDATE1 ---
History and Physical Update Update Date/Time: 11/06/21 09:09 History and Physical has been reviewed, including an updated exam of the patient. There are changes in the patient's condition.Patient's bilirubin has count come down to normal. His lipase is normal. His pain has improved. His blood sugars are now under better control with treatment over the last few days and being only on clear liquids. Risks, benefits, and alternatives have been discussed and questions answered. Patient agrees to proceed with procedure.
--- NOTE | 2021-11-06 11:10 | PC.NURSE ---
Transported to pre-op @1100
[2021-11-06] MEDS: LACTATED RINGERS 1,000 ML 30 ML IV CONT ×3 (11:43→14:50)
[2021-11-06] MEDS: ACETAMINOPHEN 500 MG TABLET 1000 MG PO (11:50)
[2021-11-06] MEDS: KETOROLAC 15 MG/ML VIAL (*BKC) IV PUSH (11:51)
[2021-11-06 12:00] LABS: Glucose Point of Care 150 mg/dl (65-105)
[2021-11-06] MEDS: BUPIVACAINE/EPINEPHRINE 0.25% 50 ML VIAL INFILTRATE (13:21)
[2021-11-06 14:36] LABS: Glucose Point of Care 162 mg/dl (65-105)
[2021-11-06] MEDS: KCL 40 MEQ/0.45% NS 1,000 ML 100 ML IV CONT (16:02)
[2021-11-06 16:32] LABS: Glucose Point of Care 168 mg/dl (65-105)
--- NOTE | 2021-11-06 19:19 | W.PM.PROC2 ---
Procedure Note - Detailed Date of Procedure 11/06/21 Pre-op Diagnosis 1. acute cholecystitis with cholelithiasis 2.Nausea vomiting right upper quadrant abdominal Post-op Diagnosis Other ( severe acute cholecystitis with cholelithiasis with possible gallbladder perforation (walled-off by omentum)) Procedure Performed Diagnostic laparoscopy with lysis of adhesions. Surgeon Edmund Qureshi MD Addiction Treatment Counselor [facility]CHELL Garcia, [place] 1st assist Anesthesia General Indications this patient is a pleasant 71-year-old diabetic male presented over the weekend with increasing right upper quadrant abdominal pain. He states that it started last Friday. CT and ultrasound were completed ultrasound showed definite stones but these did not show severe inflammation therefore, was felt that the patient would benefit by an early laparoscopic cholecystectomy if able to be done. The risks, benefits, possible complications of this were discussed (see recent progress note). Findings Upon entering the abdomen the lower abdomen was free of inflammation but when looking from the umbilicus toward the right upper quadrant all 1 could see were adhesions of the omentum to the anterior abdominal wall and the anterior inferior edge of the right lobe of the liver. The gallbladder could not be seen at all. There was some slightly yellowish reactive fluid both in the right colic gutter and in the pelvis. Description of Procedure The patient was seen in his room before surgery, abd. marked, and he was comfortable not complaining of a lot of pain. Patient was brought to the operating room and after induction of adequate general endotracheal anesthesia the entire abdomen and lower chest were prepped and draped in usual sterile fashion. SCD hose were in place and time-out was performed confirming patient and site of surgery being the abdomen. Following this a standard Solis cannula placement through a transverse infraumbilical incision was accomplished. Fascia was identified & 2 stay sutures were placed of 0 Vicryl on either side of midline. These were used to carefully elevate the fascia and I then made an incision with an 11 blade knife. The peritoneum was entered under direct vision with scissors and there were no underlying bowel impeding our entry. This opening was dilated with a Peon and a 12 mm Solis cannula was carefully slid into place under direct vision. The balloon on the Marta was inflated with 20 cc of air, pulled back, and the 2 stay sutures were used to hold this in place. Following this CO2 gas was insufflated through this site to level of 14 mmHg pressure. Following this the 0 degree 10 mm laparoscopic was placed through this port & we carefully inspected entire abdomen inferiorly. The patient did not appear to have any hernias and we could not see a lot into the pelvis because of his previous surgery. There was a mild amount of clear yellowish reactive fluid present along the colic gutters and pooling in the pelvis. The left upper quadrant was unremarkable, we could see the anterior surface of the stomach nicely and see the anterior surface of the left lobe of the liver and the falciform. However, in the right upper quadrant there was a curtain of omentum that was adhered to the anterior abdominal wall and to the anterior inferior edge of the right lobe of the liver. Because I was hopeful with the way these looked being somewhat filmy near the attachments to the peritoneum, I placed 2 5 mm trocars. One a little bit lower than usual in the epigastrium to be inferior to the adhered omentum and another one in the right upper quadrant approximatelly 5 cm inferior to the costal margin which was also 2 or 3 cm below the level of where there were adhesions of the omentum to the anterior abdominal wall / peritoneum. Local anesthetic was placed and the ports were placed under direct vision. Following this scissors and dissector were carefully used to begin taking down the adhe
[2021-11-06] MEDS: SENNA/DOCUSATE SODIUM TABLET 2 TAB PO (20:37)
[2021-11-06] MEDS: INSULIN GLARGINE (*BKC) 100 UNITS/ML 15 UNITS SUB-Q (20:39)
[2021-11-06 21:19] LABS: Glucose Point of Care 175 mg/dl (65-105)
[2021-11-07 00:12] VITALS: BP 143/83; PULSE 91; RESP 16; TEMP 36.2; O2SAT 95
[2021-11-07 05:56] VITALS: BP 140/80; PULSE 91; RESP 16; TEMP 36.2; O2SAT 98
[2021-11-07 05:58] LABS: Hematocrit 32.7 % (42.0-52.0); Hemoglobin 10.9 g/dL (14.0-18.0); Mean Corpuscular HGB Conc 33.3 g/dl (32-36); Mean Corpuscular Hemoglobin 26.8 pg (26-34); Mean Corpuscular Volume 80.3 fl (80-100); Mean Platelet Volume 10.4 fl (7.4-10.4); Platelet Count Result 246 k/mm3 (150-375); Red Blood Count 4.07 M/mm3 (4.6-6.20); Red Cell Distribution Width 13.2 % (11.5-14.5); White Blood Count 10.3 K/mm3 (4.5-10.0)
[2021-11-07 06:04] LABS: Glucose Point of Care 130 mg/dl (65-105)
[2021-11-07 06:20] LABS: Alanine Aminotransferase 95 U/L (6-50); Albumin Level 3.1 g/dL (3.5-5.1); Alkaline Phosphatase 106 U/L (38-126); Anion Gap 6 mmol/L (8-16); Aspartate Amino Transferase 27 U/L (17-59); Bilirubin,Total 0.6 mg/dL (0.2-1.3); Blood Urea Nitrogen 7 mg/dL (9-20); Calcium 8.3 mg/dL (8.4-10.2); Carbon Dioxide 28 mmol/L (22-30); Chloride 106 mmol/L (98-107); Estimated CRCL calculation 83 ml/min; Estimated Glomerular Filt Rate > 60; Glucose 123 mg/dL (65-110); Potassium 3.4 mmol/L (3.4-5.0); Sodium 140 mmol/L (137-145)
[2021-11-07 06:21] LABS: INR 1.2; Prothrombin Time 15.1 Seconds (11.1-14.7)
[2021-11-07 06:22] LABS: Partial Thromboplastin Time 35.6 SECONDS (22.3-36.8)
[2021-11-07] MEDS: ENOXAPARIN 40 MG/0.4 ML SYRINGE SUB-Q (08:04)
[2021-11-07] MEDS: ASPIRIN 81 MG CHEWABLE TABLET PO (08:04)
[2021-11-07] MEDS: KCL 40 MEQ/0.45% NS 1,000 ML 100 ML IV CONT ×2 (08:10→22:35)
[2021-11-07] MEDS: HYDROcodone/acetaminophen (*CRX) 5-325 MG TABLET 1 TAB PO (08:24)
--- NOTE | 2021-11-07 10:09 | PM.PNGS ---
Subjective Subjective Date/Time Seen: 11/07/21 10:09 Post Op day: 1 ( Status post laparoscopy with lysis of adhesions) Patient reports: no new complaints, tolerating liquids well and other ( some periumbilical pain consistent with incision) Interval history: patient states he is not nauseated. He drank with Glucerna supplements morning. Review of Systems Review of Systems: All systems reviewed & are unremarkable except as noted in HPI and below Constitutional: Constitutional: Reports as per HPI, Denies chills and Denies fever(s) Cardiovascular: Cardiovascular: Denies chest pain and Denies dyspnea Respiratory: Respiratory: Reports no additional respiratory complaints and Denies dyspnea Gastrointestinal: Gastrointestinal: Reports as per HPI and Denies bloating Musculoskeletal: Musculoskeletal: Reports no additional musculoskeletal complaints Psychiatric: Psychiatric: Denies anxiety Exam Const: General: cooperative, comfortable, alert and awake Orientation/consciousness: patient oriented x3 HENMT: Head: normal to inspection Mouth: Yes moist mucous membranes Eyes: Sclera: sclerae normal Pupils: Equal, round and reactive pupils present Neck: Neck: normal visual inspection and no JVD Chest: Chest palpation & inspection: normal inspection of the chest Resp: Effort & Inspection: normal respiratory effort Auscultation: clear to auscultation bilaterally Neuro: General: patient oriented x3 Cranial nerves: Yes Equal, round and reactive pupils present Objective Data Vital Signs Vital Signs: Vital Signs - 24 hr 11/06/21 10:32 11/06/21 11:35 11/06/21 14:00 Temperature 37.4 C 36.6 C Pulse Rate 89 69 Respiratory Rate 14 22 H Blood Pressure 143/76 H 135/74 Pulse Oximetry 96 96 100 Oxygen Delivery Room Air Room Air Simple Face Mask Oxygen Flow Rate 11/06/21 14:15 11/06/21 14:30 11/06/21 14:45 Temperature Pulse Rate 80 89 92 Respiratory Rate 19 11 L 15 Blood Pressure 137/76 146/77 H 145/79 H Pulse Oximetry 100 96 95 Oxygen Delivery Simple Face Mask Room Air Room Air Oxygen Flow Rate 11/06/21 14:50 11/06/21 15:05 11/06/21 15:35 Temperature 36.2 C L 36.7 C 36.6 C Pulse Rate 93 93 95 Respiratory Rate 16 16 18 Blood Pressure 139/79 141/82 H 143/85 H Pulse Oximetry 98 98 97 Oxygen Delivery Oxygen Flow Rate 11/06/21 16:35 11/06/21 20:30 11/06/21 20:00 Temperature 36.6 C 36.4 C Pulse Rate 95 89 89 Respiratory Rate 16 18 18 Blood Pressure 148/91 H 130/78 Pulse Oximetry 98 98 98 Oxygen Delivery Room Air Oxygen Flow Rate 11/07/21 00:12 11/07/21 05:56 Temperature 36.2 C L 36.2 C L Pulse Rate 91 91 Respiratory Rate 16 16 Blood Pressure 143/83 H 140/80 Pulse Oximetry 95 98 Oxygen Delivery Oxygen Flow Rate Intake/Output Intake/Output: Intake & Output 11/04/21 11/05/21 11/06/21 11/07/21 23:59 23:59 23:59 23:59 Intake Total 1150 2960 1560 1050 Output Total 1130 0 700 500 Balance 20 2960 860 550 Meds/Results Medications: Active Medications Generic Name Dose Route Start Last Admin Trade Name Freq PRN Reason Stop Dose Admin Hydrocodone Bitart/Acetaminophen 1 tab 11/06/21 14:06 Hydrocodone/Acetaminophen (*Crx) 7.5-325 Mg Tablet PO Q4H PRN Pain Rated 7-10 Hydrocodone Bitart/Acetaminophen 1 tab 11/06/21 14:06 11/07/21 08:24 Hydrocodone/Acetaminophen (*Crx) 5-325 Mg Tablet PO 1 tab Q4H PRN Administration Pain Rated 4-6 Aspirin 81 mg 11/07/21 08:00 11/07/21 08:04 Aspirin 81 Mg Chewable Tablet PO 81 mg DAILY@0800 HANY Administration Dextrose 12.5 gm 11/04/21 13:56 Dextrose 50% 25 Gm/50 Ml Syringe IV PUSH PRN PRN Hypoglycemia Protocol Enoxaparin Sodium 40 mg 11/07/21 09:00 11/07/21 08:04 Enoxaparin 40 Mg/0.4 Ml Syringe SUB-Q 40 mg DAILY HANY Administration Fentanyl Citrate 25 mcg 11/05/21 13:48 Fentanyl Citrate Inj (*Crx) 100 Mcg/2 Ml Vial IV PUSH Q2M PRN
--- NOTE | 2021-11-07 11:38 | WPDANESPN ---
Anes - Prog Note Post-Op Date/Time: 11/07/21 11:38 Vital Signs: Last Vital Signs Temp 36.2 C L 11/07/21 05:56 Pulse 91 11/07/21 05:56 Resp 16 11/07/21 05:56 BP 140/80 11/07/21 05:56 Pulse Ox 98 11/07/21 05:56 O2 Del Method Room Air 11/06/21 20:00 O2 Flow Rate 6 11/06/21 14:15 Pain Score (VAS): 0 I/O: Intake & Output 11/06/21 11/07/21 11/07/21 23:59 07:59 15:59 Intake Total 410 1050 240 Output Total 500 Balance 410 550 240 Laboratory Tests 11/07/21 05:40 11/07/21 05:40 11/06/21 11/06/21 11/06/21 11:57 14:34 16:30 WBC RBC Hgb Hct MCV MCH MCHC RDW Plt Count MPV PT INR APTT Sodium Potassium Chloride Carbon Dioxide Anion Gap BUN Creatinine Estim Creat Clear Calc Estimated GFR Glucose POC Capillary Glucose 150 H 162 H 168 H Calcium Magnesium Total Bilirubin AST ALT Alkaline Phosphatase Total Protein Albumin 11/06/21 11/07/21 11/07/21 20:33 05:40 05:40 WBC 10.3 H RBC 4.07 L Hgb 10.9 L Hct 32.7 L MCV 80.3 MCH 26.8 MCHC 33.3 RDW 13.2 Plt Count 246 MPV 10.4 PT INR APTT Sodium 140 Potassium 3.4 Chloride 106 Carbon Dioxide 28 Anion Gap 6 L BUN 7 L Creatinine 0.80 Estim Creat Clear Calc 83 Estimated GFR > 60 Glucose 123 H POC Capillary Glucose 175 H Calcium 8.3 L Magnesium 2.0 Total Bilirubin 0.6 AST 27 ALT 95 H Alkaline Phosphatase 106 Total Protein 7.0 Albumin 3.1 L 11/07/21 11/07/21 05:40 06:01 WBC RBC Hgb Hct MCV MCH MCHC RDW Plt Count MPV PT 15.1 H INR 1.2 APTT 35.6 Sodium Potassium Chloride Carbon Dioxide Anion Gap BUN Creatinine Estim Creat Clear Calc Estimated GFR Glucose POC Capillary Glucose 130 H Calcium Magnesium Total Bilirubin AST ALT Alkaline Phosphatase Total Protein Albumin Microbiology 11/03/21 23:53 Unspecified Urine Culture - Final Klebsiella pnemoniae Patient Feedback: Patient satisfied with anesthetic care.
[2021-11-07 11:41] VITALS: BP 133/77; PULSE 91; RESP 18; TEMP 36.8; O2SAT 97
--- NOTE | 2021-11-07 13:38 | PC.NURSE ---
Pt returned to room @1330. Resting in bed with belonging at bedside.
[2021-11-07 15:41] VITALS: BP 142/83; PULSE 91; RESP 18; TEMP 36.1; O2SAT 96
[2021-11-07 16:13] LABS: Glucose Point of Care 133 mg/dl (65-105)
[2021-11-07 16:41] VITALS: BP 135/82; PULSE 87; RESP 16; TEMP 36.9; O2SAT 97
--- NOTE | 2021-11-07 17:05 | P.PNIM_ITS ---
Progress Note: A&P Assessment and Plan (1) Cholecystitis: Code(s): K81.9 - Cholecystitis, unspecified Status: Acute Assessment and Plan: Patient presented with nausea and vomiting. CT of the abdomen showed finding suggestive of acute cholecystitis * Appreciate general surgery consultation * Right upper quadrant ultrasound showed dilated gallbladder with a regular wall thickening and multiple gallstones, normal common bile duct without evidence of choledocholithiasis * Continue IV Zosyn * 11/06/2021 attempted laparoscopic cholecystectomy, was not able to be completed due to dense adhesions * Today underwent ultrasound-guided percutaneous cholecystostomy * Patient made NPO for procedure. Advance diet per General surgery recommendation * Continue gentle IV fluids while NPO * Analgesics available as needed. Patient with 9.5/10 right upper quadrant pain today * WBC continues to improve. Patient remains afebrile (2) Intractable nausea and vomiting: Code(s): R11.2 - Nausea with vomiting, unspecified Status: Acute Assessment and Plan: Resolved. Secondary to above * Antiemetics available as needed (3) Type 2 diabetes mellitus: Code(s): E11.9 - Type 2 diabetes mellitus without complications Status: Acute Assessment and Plan: A1c is 8.8. * Blood sugars have been slightly above target this admission * Lantus resumed at reduced rate due to decreased p.o. intake/NPO diet * Blood sugars have improved with this. Today ranging from 120-130s * Continue moderate dose sliding scale insulin, Accu-Cheks and hypoglycemic protocol * Adjust insulin as needed as diet is advanced following procedure for appropriate control * Monitor glucose trends (4) Abnormal liver enzymes: Code(s): R74.8 - Abnormal levels of other serum enzymes Status: Acute Assessment and Plan: Likely secondary to cholecystitis * Trending down. Levels have normalized with exception of ALT which continues to trend down * Continue to monitor (5) UTI (urinary tract infection): Code(s): N39.0 - Urinary tract infection, site not specified Status: Acute Assessment and Plan: UA abnormal, urine culture with growth of >100k Klebsiella pneumonia * Patient remains on Zosyn for acute cholecystitis which is appropriate based on susceptibility report (6) Hypokalemia: Code(s): E87.6 - Hypokalemia Status: Acute Assessment and Plan: Potassium 3.4 today * Monitor BMP * Continue IV fluids KCl40 half NS. Subjective Date/time seen: 11/07/21 17:05 Interval history: Date of service: 11/07/2021 Jai Escobar is a 71-year-old male with a history of type 2 diabetes mellitus and prostate cancer who is seen in follow-up for acute cholecystitis. He has just returned from ultrasound-guided percutaneous cholecystostomy. He is having pretty severe right upper quadrant pain that he rates as 9.5/10. His pain is sharp in nature. He has difficulty describing this. He denies nausea or vomiting. Denies fever, chills, shortness breath, cough, chest pain, pa lpitations. Only complaint is right upper quadrant pain. Review of Systems Review of Systems: All systems reviewed & are unremarkable except as noted in HPI and below Exam Narrative: General: Well-nourished, well-appearing 71-year-old male, sitting up in bed, comfortable, NARD Neuro: awake, alert and oriented x4, speech clear, no focal neuro deficits noted
--- NOTE | 2021-11-07 17:05 | PM.IMPN ---
Progress Note: A&P Assessment and Plan (1) Cholecystitis: Code(s): K81.9 - Cholecystitis, unspecified Status: Acute Assessment and Plan: Patient presented with nausea and vomiting. CT of the abdomen showed finding suggestive of acute cholecystitis Appreciate general surgery consultation Right upper quadrant ultrasound showed dilated gallbladder with a regular wall thickening and multiple gallstones, normal common bile duct without evidence of choledocholithiasis Continue IV Zosyn 11/06/2021 attempted laparoscopic cholecystectomy, was not able to be completed due to dense adhesions Today underwent ultrasound-guided percutaneous cholecystostomy Patient made NPO for procedure. Advance diet per General surgery recommendation Continue gentle IV fluids while NPO Analgesics available as needed. Patient with 9.5/10 right upper quadrant pain today WBC continues to improve. Patient remains afebrile (2) Intractable nausea and vomiting: Code(s): R11.2 - Nausea with vomiting, unspecified Status: Acute Assessment and Plan: Resolved. Secondary to above Antiemetics available as needed (3) Type 2 diabetes mellitus: Code(s): E11.9 - Type 2 diabetes mellitus without complications Status: Acute Assessment and Plan: A1c is 8.8. Blood sugars have been slightly above target this admission Lantus resumed at reduced rate due to decreased p.o. intake/NPO diet Blood sugars have improved with this. Today ranging from 120-130s Continue moderate dose sliding scale insulin, Accu-Cheks and hypoglycemic protocol Adjust insulin as needed as diet is advanced following procedure for appropriate control Monitor glucose trends (4) Abnormal liver enzymes: Code(s): R74.8 - Abnormal levels of other serum enzymes Status: Acute Assessment and Plan: Likely secondary to cholecystitis Trending down. Levels have normalized with exception of ALT which continues to trend down Continue to monitor (5) UTI (urinary tract infection): Code(s): N39.0 - Urinary tract infection, site not specified Status: Acute Assessment and Plan: UA abnormal, urine culture with growth of >100k Klebsiella pneumonia Patient remains on Zosyn for acute cholecystitis which is appropriate based on susceptibility report (6) Hypokalemia: Code(s): E87.6 - Hypokalemia Status: Acute Assessment and Plan: Potassium 3.4 today Monitor BMP Continue IV fluids KCl40 half NS. Subjective Date/time seen: 11/07/21 17:05 Interval history: Date of service: 11/07/2021 Jai Escobar is a 71-year-old male with a history of type 2 diabetes mellitus and prostate cancer who is seen in follow-up for acute cholecystitis. He has just returned from ultrasound-guided percutaneous cholecystostomy. He is having pretty severe right upper quadrant pain that he rates as 9.5/10. His pain is sharp in nature. He has difficulty describing this. He denies nausea or vomiting. Denies fever, chills, shortness breath, cough, chest pain, palpitations. Only complaint is right upper quadrant pain. Review of Systems Review of Systems: All systems reviewed & are unremarkable except as noted in HPI and below Exam Narrative: General: Well-nourished, well-appearing 71-year-old male, sitting up in bed, comfortable, NARD Neuro: awake, alert and oriented x4, speech clear, no focal neuro deficits noted HEENMT: normocephalic, atraumatic, EOMI, sclerae anicteric Respiratory: clear to auscultation bilaterally, nonlabored breathing Cardio: regular rate, regular rhythm with S1-S2 Abdomen: nondistended, normoactive bowel sounds, soft, cholecystostomy drain in right upper quadrant with dark, reddish output, significant RUQ tenderness to palpation Extremities: no edema, erythema, or tenderness to palpation, DP pulses 2+ bilaterally Skin: no rashes or lesions, warm and dry Psych:
[2021-11-07 17:26] LABS: Glucose Point of Care 119 mg/dl (65-105)
[2021-11-07 20:16] LABS: Glucose Point of Care 185 mg/dl (65-105)
[2021-11-07 20:41] VITALS: BP 151/82; PULSE 92; RESP 16; TEMP 36.5; O2SAT 97
[2021-11-07] MEDS: SENNA/DOCUSATE SODIUM TABLET 2 TAB PO (20:48)
[2021-11-08 00:02] LABS: H pylori Ag Stool Detected (Not Detected)
[2021-11-08] MEDS: HYDROcodone/acetaminophen (*CRX) 5-325 MG TABLET 1 TAB PO (04:24)
[2021-11-08 05:05] VITALS: BP 154/76; PULSE 87; RESP 16; TEMP 36.1; O2SAT 98
[2021-11-08 05:14] LABS: Glucose Point of Care 129 mg/dl (65-105)
[2021-11-08 05:39] LABS: Hematocrit 33.4 % (42.0-52.0); Hemoglobin 10.7 g/dL (14.0-18.0); Mean Corpuscular Hemoglobin 26.3 pg (26-34); Mean Corpuscular Volume 82.1 fl (80-100); Mean Platelet Volume 10.1 fl (7.4-10.4); Platelet Count Result 251 k/mm3 (150-375); Red Blood Count 4.07 M/mm3 (4.6-6.20); Red Cell Distribution Width 13.4 % (11.5-14.5); White Blood Count 8.8 K/mm3 (4.5-10.0)
[2021-11-08 05:52] LABS: Alanine Aminotransferase 74 U/L (6-50); Albumin Level 3.2 g/dL (3.5-5.1); Alkaline Phosphatase 112 U/L (38-126); Anion Gap 4 mmol/L (8-16); Aspartate Amino Transferase 30 U/L (17-59); Bilirubin,Total 0.7 mg/dL (0.2-1.3); Blood Urea Nitrogen 6 mg/dL (9-20); Calcium 8.7 mg/dL (8.4-10.2); Carbon Dioxide 30 mmol/L (22-30); Chloride 104 mmol/L (98-107); Estimated CRCL calculation 83 ml/min; Estimated Glomerular Filt Rate > 60; Glucose 125 mg/dL (65-110); Potassium 3.8 mmol/L (3.4-5.0); Sodium 138 mmol/L (137-145)
[2021-11-08 07:50] LABS: Glucose Point of Care 116 mg/dl (65-105)
[2021-11-08 09:22] LABS: Prostate Specific Antigen > 100.0 ng/mL (< OR = 4.0)
[2021-11-08] MEDS: ASPIRIN 81 MG CHEWABLE TABLET PO (09:50)
[2021-11-08] MEDS: ENOXAPARIN 40 MG/0.4 ML SYRINGE SUB-Q (09:50)
[2021-11-08 12:09] LABS: Glucose Point of Care 245 mg/dl (65-105)
--- NOTE | 2021-11-08 12:36 | P.PNIM_ITS ---
Progress Note: A&P Assessment and Plan (1) Cholecystitis: Code(s): K81.9 - Cholecystitis, unspecified Status: Acute Assessment and Plan: Patient presented with nausea and vomiting. CT of the abdomen showed finding suggestive of acute cholecystitis * Appreciate general surgery consultation * Right upper quadrant ultrasound showed dilated gallbladder with a regular wall thickening and multiple gallstones, normal common bile duct without evidence of choledocholithiasis * Continue IV Zosyn * 11/06 attempted laparoscopic cholecystectomy, was not able to be completed due to dense adhesions * 11/07 underwent ultrasound-guided percutaneous cholecystostomy. * Advanced to clear liquid diet. Tolerating well. Continue to advance diet per General surgery recommendation * Continue gentle IV fluids until PO intake is increased. * Analgesics available as needed. * WBC normalized. Patient remains afebrile (2) Intractable nausea and vomiting: Code(s): R11.2 - Nausea with vomiting, unspecified Status: Acute Assessment and Plan: Resolved. Secondary to above * Antiemetics available as needed (3) Type 2 diabetes mellitus: Code(s): E11.9 - Type 2 diabetes mellitus without complications Status: Acute Assessment and Plan: A1c is 8.8. * Blood sugars have been slightly above target this admission * Lantus resumed at reduced rate due to decreased p.o. intake/NPO diet * Blood sugars improved. Fasting glucose this am was 125 * Continue moderate dose sliding scale insulin, Accu-Cheks and hypoglycemic protocol * Adjust insulin as needed as diet is advanced following procedure for appropriate control * Monitor glucose trends (4) Abnormal liver enzymes: Code(s): R74.8 - Abnormal levels of other serum enzymes Status: Acute Assessment and Plan: Likely secondary to cholecystitis * Improved. Levels have normalized with exception of ALT which continues to trend down * Continue to monitor (5) UTI (urinary tract infection): Code(s): N39.0 - Urinary tract infection, site not specified Status: Acute Assessment and Plan: UA abnormal, urine culture with growth of >100k Klebsiella pneumonia * Patient remains on Zosyn for acute cholecystitis which is appropriate based on susceptibility report * He is asymptomatic (6) Hypokalemia: Code(s): E87.6 - Hypokalemia Status: Acute Assessment and Plan: Resolved. Potassium 3.8 today. * Monitor BMP * Continue IV fluids KCl40 half NS. * Mag within normal limits (7) Pelvic lymphadenopathy: Code(s): R59.0 - Localized enlarged lymph nodes Status: Acute Assessment and Plan: Repeat CT of the abdomen/pelvis completed yesterday showed left periaortic and left pelvic lymphadenopathy concerning for metastatic prostate cancer. * Patient has history of prostate cancer and is s/p radical prostatectomy * He follows with urologist, Dr. An * PSA is elevated, >100.0 * Phone call to Dr. An for recommendations. Awaiting return call. Subjective Date/time seen: 11/08/21 12:36 Interval history: Date of service: 11/08/2021 Jai Escobar is a 71-year-old male with a history of type 2 diabetes mellitus and prostate cancer who is seen in follow-up for acute cholecystitis. He is feeling better today. His pain is improved. Currently he endorses right upper quadrant pain that he rates as 3/10. He was able to tolerate clear liquids today. He denies nausea or v
--- NOTE | 2021-11-08 12:36 | PM.IMPN ---
Progress Note: A&P Assessment and Plan (1) Cholecystitis: Code(s): K81.9 - Cholecystitis, unspecified Status: Acute Assessment and Plan: Patient presented with nausea and vomiting. CT of the abdomen showed finding suggestive of acute cholecystitis Appreciate general surgery consultation Right upper quadrant ultrasound showed dilated gallbladder with a regular wall thickening and multiple gallstones, normal common bile duct without evidence of choledocholithiasis Continue IV Zosyn 11/06 attempted laparoscopic cholecystectomy, was not able to be completed due to dense adhesions 11/07 underwent ultrasound-guided percutaneous cholecystostomy. Advanced to clear liquid diet. Tolerating well. Continue to advance diet per General surgery recommendation Continue gentle IV fluids until PO intake is increased. Analgesics available as needed. WBC normalized. Patient remains afebrile (2) Intractable nausea and vomiting: Code(s): R11.2 - Nausea with vomiting, unspecified Status: Acute Assessment and Plan: Resolved. Secondary to above Antiemetics available as needed (3) Type 2 diabetes mellitus: Code(s): E11.9 - Type 2 diabetes mellitus without complications Status: Acute Assessment and Plan: A1c is 8.8. Blood sugars have been slightly above target this admission Lantus resumed at reduced rate due to decreased p.o. intake/NPO diet Blood sugars improved. Fasting glucose this am was 125 Continue moderate dose sliding scale insulin, Accu-Cheks and hypoglycemic protocol Adjust insulin as needed as diet is advanced following procedure for appropriate control Monitor glucose trends (4) Abnormal liver enzymes: Code(s): R74.8 - Abnormal levels of other serum enzymes Status: Acute Assessment and Plan: Likely secondary to cholecystitis Improved. Levels have normalized with exception of ALT which continues to trend down Continue to monitor (5) UTI (urinary tract infection): Code(s): N39.0 - Urinary tract infection, site not specified Status: Acute Assessment and Plan: UA abnormal, urine culture with growth of >100k Klebsiella pneumonia Patient remains on Zosyn for acute cholecystitis which is appropriate based on susceptibility report He is asymptomatic (6) Hypokalemia: Code(s): E87.6 - Hypokalemia Status: Acute Assessment and Plan: Resolved. Potassium 3.8 today. Monitor BMP Continue IV fluids KCl40 half NS. Mag within normal limits (7) Pelvic lymphadenopathy: Code(s): R59.0 - Localized enlarged lymph nodes Status: Acute Assessment and Plan: Repeat CT of the abdomen/pelvis completed yesterday showed left periaortic and left pelvic lymphadenopathy concerning for metastatic prostate cancer. Patient has history of prostate cancer and is s/p radical prostatectomy He follows with urologist, Dr. An PSA is elevated, >100.[address] An for recommendations. Awaiting return call. Subjective Date/time seen: 11/08/21 12:36 Interval history: Date of service: 11/08/2021 Jai Escobar is a 71-year-old male with a history of type 2 diabetes mellitus and prostate cancer who is seen in follow-up for acute cholecystitis. He is feeling better today. His pain is improved. Currently he endorses right upper quadrant pain that he rates as 3/10. He was able to tolerate clear liquids today. He denies nausea or vomiting. He was able to get up and walk around for a bit and is now sitting in the chair. He is glad to be out of bed. He denies any urinary symptoms including dysuria, hematuria, urgency, or frequency. He feels that he is emptying his bladder. He denies shortness breath, cough, chest pain, dizziness, lightheadedness, weakness. Denies abdominal pain or pelvic pain. Review of Systems Review of Systems: All systems reviewed & are unremarkable ex
[2021-11-08] MEDS: INSULIN ASPART (*BKC) 100 UNITS/ML SUB-Q (13:25)
[2021-11-08 14:45] VITALS: BP 140/83; PULSE 82; RESP 16; TEMP 37; O2SAT 95
--- NOTE | 2021-11-08 15:40 | PM.PNGS ---
Progress Note: A&P Assessment and Plan (1) Cholelithiasis and acute cholecystitis with obstruction: Code(s): K80.01 - Calculus of gallbladder with acute cholecystitis with obstruction Status: Acute Assessment and Plan: S/p percutaneous cholecystostomy tube placement on 11/07/21. Drain has some bloody output today, will continue to monitor. He is clinically improving. WBC normalized. Continue IV antibiotics. Will advance to full liquids for dinner. Continue to advance diet as tolerated to a low fat diet. Stop IV fluids once tolerating full liquids. Discussed the case with care coordination, who has set him up for home health. Would plan to transition him to oral antibiotics on discharge. May be able to discharge in the next 1-2 days if continuing to improve. (2) Abnormal liver enzymes: Code(s): R74.8 - Abnormal levels of other serum enzymes Status: Acute Assessment and Plan: Resolved. Continues to slowly trend down to nearly normal now. (3) Type 2 diabetes mellitus: Code(s): E11.9 - Type 2 diabetes mellitus without complications Status: Acute Plan I have discussed the patient's case and plan of care with Dr. Qureshi. Subjective Subjective Date/Time Seen: 11/08/21 15:40 Post Op day: 2 (laparoscopy with lysis of adhesions) Patient reports: no new complaints, tolerating liquids well, flatus, no bowel movement and afebrile Interval history: Patient seen and examined. He reports having some abdominal pain at his incisions, but this is controlled. No nausea or vomiting. Tolerating clear liquids. 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 He has about 50 cc of dark red output in the bag currently, per nursing the color of the drainage has been like this all day. Review of Systems Review of Systems: All systems reviewed & are unremarkable except as noted in HPI and below Exam Const: General: comfortable, no acute distress and awake Orientation/consciousness: patient oriented x3 GI: Inspection: non-distended GI Palp: Yes Soft to palpation, Yes Tenderness to palpation present (GI) (incisional) and No Guarding due to palpation present (GI) Auscultation: Hypoactive bowel sounds present Other: right subcostal perc cholecystostomy tube with dark red output Neuro: General: moves all extremities and no focal motor deficits Extrem: General: normal to inspection Psych: Mental Status: mental status grossly normal Objective Data Vital Signs Vital Signs: Vital Signs - 24 hr 11/07/21 15:41 11/07/21 16:41 11/07/21 20:41 Temperature 96.9 F L 98.5 F 97.7 F Pulse Rate 91 87 92 Respiratory Rate 18 16 16 Blood Pressure 142/83 H 135/82 151/82 H Pulse Oximetry 96 97 97 11/08/21 05:05 11/08/21 14:45 Temperature 97 F L 98.6 F Pulse Rate 87 82 Respiratory Rate 16 16 Blood Pressure 154/76 H 140/83 Pulse Oximetry 98 95 Intake/Output Intake/Output: Intake & Output 11/05/21 11/06/21 11/07/21 11/08/21 23:59 23:59 23:59 23:59 Intake Total 2960 1560 2540 930 Output Total 0 700 2010 1780 Balance 2960 860 530 -850 Meds/Results Medications: Active Medications Generic Name Dose Route Start Last Admin Trade Name Freq PRN Reason Stop Dose Admin Hydrocodone Bitart/Acetaminophen 1 tab 11/06/21 14:06 Hydrocodone/Acetaminophen (*Crx) 7.5-325 Mg Tablet PO Q4H PRN Pain Rated 7-10 Hydrocodone Bitart/Acetaminophen 1 tab 11/06/21 14:06 11/08/21 04:24 Hydrocodone/Acetaminophen (*Crx) 5-325 Mg Tablet PO 1 tab Q4H PRN Administration Pain Rated 4-6 Aspirin 81 mg 11/07/21 08:00 11/08/21 09:50 Aspirin 81 Mg Chewable Tablet PO 81 mg DAILY@0800 [facility] Administration Dextrose 12.5 gm 11/04/21 13:56 Dextrose 50% 25 Gm/50 Ml Syringe IV PUSH PRN PRN Hypoglycemia Protocol Enoxaparin Sodium 40 mg 11/07/21 09:00 11/08/21 09:50 Enoxaparin 40 Mg/0.4 Ml Syringe SUB-Q 40 mg DAILY [facility] Administ
[2021-11-08 17:29] LABS: Glucose Point of Care 170 mg/dl (65-105)
[2021-11-08 20:41] LABS: Glucose Point of Care 166 mg/dl (65-105)
[2021-11-08] MEDS: KCL 40 MEQ/0.45% NS 1,000 ML 50 ML IV CONT (23:04)
[2021-11-08] MEDS: SENNA/DOCUSATE SODIUM TABLET 2 TAB PO (23:05)
[2021-11-09 05:52] LABS: Hematocrit 32.1 % (42.0-52.0); Hemoglobin 10.5 g/dL (14.0-18.0); Mean Corpuscular HGB Conc 32.7 g/dl (32-36); Mean Corpuscular Hemoglobin 26.6 pg (26-34); Mean Corpuscular Volume 81.3 fl (80-100); Mean Platelet Volume 10.4 fl (7.4-10.4); Platelet Count Result 271 k/mm3 (150-375); Red Blood Count 3.95 M/mm3 (4.6-6.20); Red Cell Distribution Width 13.2 % (11.5-14.5); White Blood Count 8.8 K/mm3 (4.5-10.0)
[2021-11-09 06:20] LABS: Anion Gap 4 mmol/L (8-16); Blood Urea Nitrogen 7 mg/dL (9-20); Calcium 8.5 mg/dL (8.4-10.2); Carbon Dioxide 31 mmol/L (22-30); Chloride 102 mmol/L (98-107); Estimated CRCL calculation 108 ml/min; Estimated Glomerular Filt Rate > 60; Glucose 135 mg/dL (65-110); Potassium 4.3 mmol/L (3.4-5.0); Sodium 137 mmol/L (137-145)
[2021-11-09 07:46] LABS: Glucose Point of Care 136 mg/dl (65-105)
[2021-11-09] MEDS: ENOXAPARIN 40 MG/0.4 ML SYRINGE SUB-Q (11:27)
[2021-11-09] MEDS: ASPIRIN 81 MG CHEWABLE TABLET PO (11:27)
[2021-11-09 12:11] LABS: Glucose Point of Care 174 mg/dl (65-105)
--- NOTE | 2021-11-09 12:55 | P.PNIM_ITS ---
Progress Note: A&P Assessment and Plan (1) Cholecystitis: Code(s): K81.9 - Cholecystitis, unspecified Status: Acute Assessment and Plan: Patient presented with nausea and vomiting. CT of the abdomen showed finding suggestive of acute cholecystitis * Appreciate general surgery consultation * Right upper quadrant ultrasound showed dilated gallbladder with a regular wall thickening and multiple gallstones, normal common bile duct without evidence of choledocholithiasis * Continue IV Zosyn * 11/06 attempted laparoscopic cholecystectomy, was not able to be completed due to dense adhesions * 11/07 underwent ultrasound-guided percutaneous cholecystostomy. * Preliminary bile cultures negative to date * Continue full liquid diet. Tolerating well. Continue to advance diet per General surgery recommendations * Discontinue IV fluids as patient is adequately hydrated and tolerating PO intake * Analgesics available as needed. * WBC normalized. Patient remains afebrile (2) Intractable nausea and vomiting: Code(s): R11.2 - Nausea with vomiting, unspecified Status: Resolved Assessment and Plan: Resolved. Secondary to above * Antiemetics available as needed (3) Type 2 diabetes mellitus: Code(s): E11.9 - Type 2 diabetes mellitus without complications Status: Acute Assessment and Plan: A1c is 8.8. * Blood sugars elevated on admission as insulin was held while pt was NPO * Sugars have improved with home Lantus. Continue Lantus 15 units qHS * Continue moderate dose sliding scale insulin, Accu-Cheks and hypoglycemic protocol * Adjust insulin as needed as diet is advanced * Monitor glucose trends (4) Abnormal liver enzymes: Code(s): R74.8 - Abnormal levels of other serum enzymes Status: Acute Assessment and Plan: Likely secondary to cholecystitis * Improved. Levels have normalized with exception of ALT which continues to trend down * Continue to monitor (5) UTI (urinary tract infection): Code(s): N39.0 - Urinary tract infection, site not specified Status: Acute Assessment and Plan: UA abnormal, urine culture with growth of >100k Klebsiella pneumonia * Patient remains on Zosyn for acute cholecystitis which is appropriate based on susceptibility report * He is asymptomatic (6) Hypokalemia: Code(s): E87.6 - Hypokalemia Status: Acute Assessment and Plan: Resolved. Potassium 4.3 today. * Monitor BMP (7) Pelvic lymphadenopathy: Code(s): R59.0 - Localized enlarged lymph nodes Status: Acute Assessment and Plan: Repeat CT of the abdomen/pelvis completed yesterday showed left periaortic and left pelvic lymphadenopathy concerning for metastatic prostate cancer. * Patient has history of prostate cancer and is s/p radical prostatectomy * He follows with urologist, Dr. An * PSA is elevated, >100.0 * Discussed case with Dr. An. His office has been trying to reach the patient for several weeks regarding these findings (discovered earlier on outpatient CT, not available in this EMR). * Dr. An saw the patient on 11/08 and explained importance of follow up * He will follow up on 11/15 to begin hormonal therapy Subjective Date/time seen: 11/09/21 12:55 Interval history: Date of service: 11/09/2021 Jai Escobar is a 71-year-old male with a history of type 2 diabetes mellitus and prostate cancer who is seen in follow-up for acute cholecystitis. He continues to feel b
--- NOTE | 2021-11-09 12:55 | PM.IMPN ---
Progress Note: A&P Assessment and Plan (1) Cholecystitis: Code(s): K81.9 - Cholecystitis, unspecified Status: Acute Assessment and Plan: Patient presented with nausea and vomiting. CT of the abdomen showed finding suggestive of acute cholecystitis Appreciate general surgery consultation Right upper quadrant ultrasound showed dilated gallbladder with a regular wall thickening and multiple gallstones, normal common bile duct without evidence of choledocholithiasis Continue IV Zosyn 11/06 attempted laparoscopic cholecystectomy, was not able to be completed due to dense adhesions 11/07 underwent ultrasound-guided percutaneous cholecystostomy. Preliminary bile cultures negative to date Continue full liquid diet. Tolerating well. Continue to advance diet per General surgery recommendations Discontinue IV fluids as patient is adequately hydrated and tolerating PO intake Analgesics available as needed. WBC normalized. Patient remains afebrile (2) Intractable nausea and vomiting: Code(s): R11.2 - Nausea with vomiting, unspecified Status: Resolved Assessment and Plan: Resolved. Secondary to above Antiemetics available as needed (3) Type 2 diabetes mellitus: Code(s): E11.9 - Type 2 diabetes mellitus without complications Status: Acute Assessment and Plan: A1c is 8.8. Blood sugars elevated on admission as insulin was held while pt was NPO Sugars have improved with home Lantus. Continue Lantus 15 units qHS Continue moderate dose sliding scale insulin, Accu-Cheks and hypoglycemic protocol Adjust insulin as needed as diet is advanced Monitor glucose trends (4) Abnormal liver enzymes: Code(s): R74.8 - Abnormal levels of other serum enzymes Status: Acute Assessment and Plan: Likely secondary to cholecystitis Improved. Levels have normalized with exception of ALT which continues to trend down Continue to monitor (5) UTI (urinary tract infection): Code(s): N39.0 - Urinary tract infection, site not specified Status: Acute Assessment and Plan: UA abnormal, urine culture with growth of >100k Klebsiella pneumonia Patient remains on Zosyn for acute cholecystitis which is appropriate based on susceptibility report He is asymptomatic (6) Hypokalemia: Code(s): E87.6 - Hypokalemia Status: Acute Assessment and Plan: Resolved. Potassium 4.3 today. Monitor BMP (7) Pelvic lymphadenopathy: Code(s): R59.0 - Localized enlarged lymph nodes Status: Acute Assessment and Plan: Repeat CT of the abdomen/pelvis completed yesterday showed left periaortic and left pelvic lymphadenopathy concerning for metastatic prostate cancer. Patient has history of prostate cancer and is s/p radical prostatectomy He follows with urologist, Dr. An PSA is elevated, >100.[address] An. His office has been trying to reach the patient for several weeks regarding these findings (discovered earlier on outpatient CT, not available in this EMR). Dr. An saw the patient on 11/08 and explained importance of follow up He will follow up on 11/15 to begin hormonal therapy Subjective Date/time seen: 11/09/21 12:55 Interval history: Date of service: 11/09/2021 Jai Escobar is a 71-year-old male with a history of type 2 diabetes mellitus and prostate cancer who is seen in follow-up for acute cholecystitis. He continues to feel better today. His pain is improved to 2/10 in the RUQ. Pain worsens with movement and deep breaths. He is tolerating his diet. He had a bowel movement yesterday. No issues with urinating, no dysuria or hematuria. Denies pelvic pain or back pain. Denies SOB, cough, CP, palpitations. No dizziness or lightheadedness. Review of Systems Review of Systems: All systems reviewed & are unremarkable except as noted in HPI and below Exam Narrative: General:
--- NOTE | 2021-11-09 13:22 | PM.PNGS ---
Progress Note: A&P Assessment and Plan (1) Cholelithiasis and acute cholecystitis with obstruction: Code(s): K80.01 - Calculus of gallbladder with acute cholecystitis with obstruction Status: Acute Assessment and Plan: S/p percutaneous cholecystostomy tube placement on 11/07/21. Drain has some dark non-clotting bloody output today, will continue to monitor. He is clinically improving. WBC normalized. Continue IV antibiotics. (Can be transitioned to oral antibiotics from my point of view) He has tolerated full liquids since dinner last night Continue to advance diet as tolerated to a low fat diet. Stop IV fluids once tolerating full liquids. Discussed the case with care coordination, who has set him up for home health. Would plan to transition him to oral antibiotics on discharge. May be able to discharge in the next 1-2 days if continuing to improve. (2) Abnormal liver enzymes: Code(s): R74.8 - Abnormal levels of other serum enzymes Status: Acute Assessment and Plan: Resolved. Continues to slowly trend down to nearly normal now. (3) Type 2 diabetes mellitus: Code(s): E11.9 - Type 2 diabetes mellitus without complications Status: Acute Assessment and Plan: As per hospitalist Plan I have discussed the patient's care with Dori SAN with hospitalists' Additional Plan Noticed today that every CT he has had here shows a very large distended bladder. Patient may have overflow incontinence contributing to his susceptibility to bladder infection. ( Current UTI with Klebsiella). Therefore I have ordered a postvoid bladder scan and if greater than 300 cc perhaps he will need help from Urology artery overflow incontinence or poor emptying the bladder contributing to urinary tract infection. It looks like the Klebsiella is sensitive to either Augmentin or Levaquin. This would usually adequately cover bacteria and the bladder gallbladder as the bile culture from the gallbladder still pending could consider 1 of these for 5 more days at home after discharge. Dr. Thornton covering the weekend please call if you need anything. I put post cholecystectomy orders in his discharge and will plan to cm in the office in 1-2 weeks depending on his ability to schedule. Thanks for helping.RIGO Subjective Subjective Date/Time Seen: 11/09/21 13:00 Post Op day: (A status post diagnostic laparoscopy with lysis of adhesions) Interval history: He is now 2 days status post cholecystostomy tube placement by ultrasound. ( also a CT scan performed to rule out bleeding or other problem after that drain was placed revealed significant acute cholecystitis with sludge in stones and significant left sat sided pelvic and external iliac lymphadenopathy. Patient states that today the pain is better. He has been tolerating a full liquid diet and is about to have lunch. He has had a sponge bath he feels okay. He states that he does remember Dr. Masterson coming to talk to him about the lymphadenopathy and he realizes that the prostate cancer is trying to come back. Dr. Masterson told me that he will be arranging Lupron for the patient which is an injection for the treatment of the recurrent prostate cancer. I let patient know that we were getting home health for him to have a nurse come to help check on the drain and perhaps teach him to do the Lupron injections. Review of Systems Review of Systems: All systems reviewed & are unremarkable except as noted in HPI and below Constitutional: Constitutional: Reports as per HPI, Denies chills and Denies fever(s) Cardiovascular: Cardiovascular: Denies chest pain and Denies dyspnea Respiratory: Respiratory: Reports no additional respiratory complaints and Denies dyspnea Gastrointestinal: Gastrointestinal: Reports as per HPI and Denies bloating Musculoskeletal: Musculoskeletal: Reports no additional musculoskeletal complaints Psychiatric: Psychiatric: Denies anxi
[2021-11-09 14:00] VITALS: BP 131/77; PULSE 87; RESP 16; TEMP 36.5; O2SAT 98
[2021-11-09 16:51] LABS: Glucose Point of Care 145 mg/dl (65-105)
[2021-11-09 20:00] VITALS: PULSE 87; RESP 16; O2SAT 98
[2021-11-09 20:08] LABS: Glucose Point of Care 136 mg/dl (65-105)
[2021-11-09] MEDS: SENNA/DOCUSATE SODIUM TABLET 2 TAB PO (20:34)
[2021-11-09] MEDS: INSULIN GLARGINE (*BKC) 100 UNITS/ML 15 UNITS SUB-Q (20:36)
[2021-11-10 05:58] LABS: Hematocrit 32.1 % (42.0-52.0); Hemoglobin 10.8 g/dL (14.0-18.0); Mean Corpuscular HGB Conc 33.6 g/dl (32-36); Mean Corpuscular Hemoglobin 26.6 pg (26-34); Mean Corpuscular Volume 79.1 fl (80-100); Mean Platelet Volume 10.1 fl (7.4-10.4); Platelet Count Result 316 k/mm3 (150-375); Red Blood Count 4.06 M/mm3 (4.6-6.20); Red Cell Distribution Width 13.2 % (11.5-14.5); White Blood Count 8.4 K/mm3 (4.5-10.0)
[2021-11-10 06:18] LABS: Alanine Aminotransferase 52 U/L (6-50); Albumin Level 3.3 g/dL (3.5-5.1); Alkaline Phosphatase 114 U/L (38-126); Anion Gap 5 mmol/L (8-16); Aspartate Amino Transferase 38 U/L (17-59); Bilirubin,Total 0.5 mg/dL (0.2-1.3); Blood Urea Nitrogen 8 mg/dL (9-20); Calcium 8.8 mg/dL (8.4-10.2); Carbon Dioxide 30 mmol/L (22-30); Chloride 102 mmol/L (98-107); Estimated CRCL calculation 94 ml/min; Estimated Glomerular Filt Rate > 60; Glucose 98 mg/dL (65-110); Sodium 137 mmol/L (137-145)
[2021-11-10 08:06] LABS: Glucose Point of Care 92 mg/dl (65-105)
[2021-11-10] MEDS: ENOXAPARIN 40 MG/0.4 ML SYRINGE SUB-Q (09:09)
[2021-11-10] MEDS: ASPIRIN 81 MG CHEWABLE TABLET PO (09:09)
[2021-11-10 11:52] LABS: Glucose Point of Care 125 mg/dl (65-105)
--- NOTE | 2021-11-10 14:58 | PM.PNGS ---
Progress Note: A&P Assessment and Plan (1) Cholelithiasis and acute cholecystitis with obstruction: Code(s): K80.01 - Calculus of gallbladder with acute cholecystitis with obstruction Status: Acute Assessment and Plan: tolerating diet and symptoms continuing to improve okay to discharge today monitor cholecystostomy tube output at home transition to oral antibiotics for discharge follow-up with Dr. Qureshi in 1 week Subjective Subjective Date/Time Seen: 11/10/21 14:58 Interval history: Tolerating low-fat diet. Pain improving. No fevers, lightheadedness, nausea, or vomiting. Exam GI: Inspection: non-distended and other ( Cholecystostomy tube with blood tinged bilious output) GI Palp: Yes Soft to palpation, No Tenderness to palpation present (GI) and No Guarding due to palpation present (GI) Objective Data Vital Signs Vital Signs: Vital Signs - 24 hr 11/09/21 20:00 Pulse Rate 87 Respiratory Rate 16 Pulse Oximetry 98 Oxygen Delivery Room Air Intake/Output Intake/Output: Intake & Output 11/07/21 11/08/21 11/09/21 11/10/21 23:59 23:59 23:59 23:59 Intake Total 2540 2440 1370 580 Output Total 20090 2040 2800 Balance 530 097 -[id number] Meds/Results Medications: Active Medications Generic Name Dose Route Start Last Admin Trade Name Freq PRN Reason Stop Dose Admin Hydrocodone Bitart/Acetaminophen 1 tab 11/06/21 14:06 Hydrocodone/Acetaminophen (*Crx) 7.5-325 Mg Tablet PO Q4H PRN Pain Rated 7-10 Hydrocodone Bitart/Acetaminophen 1 tab 11/06/21 14:06 11/08/21 04:24 Hydrocodone/Acetaminophen (*Crx) 5-325 Mg Tablet PO 1 tab Q4H PRN Administration Pain Rated 4-6 Aspirin 81 mg 11/07/21 08:00 11/10/21 09:09 Aspirin 81 Mg Chewable Tablet PO 81 mg DAILY@0800 HANY Administration Bisacodyl 10 mg 11/08/21 15:45 Bisacodyl 10 Mg Suppository RECTAL QAM PRN Constipation Dextrose 12.5 gm 11/04/21 13:56 Dextrose 50% 25 Gm/50 Ml Syringe IV PUSH PRN PRN Hypoglycemia Protocol Enoxaparin Sodium 40 mg 11/07/21 09:00 11/10/21 09:09 Enoxaparin 40 Mg/0.4 Ml Syringe SUB-Q 40 mg DAILY HANY Administration Fentanyl Citrate 25 mcg 11/05/21 13:48 Fentanyl Citrate Inj (*Crx) 100 Mcg/2 Ml Vial IV PUSH Q2M PRN Pain Glucagon 1 mg 11/04/21 13:56 Glucagon For Inj 1 Mg Vial IM PRN PRN Hypoglycemia Protocol Glucose 15 gm 11/04/21 13:56 Glucose Oral Gel 15 Gm Of Glucse In 37.5 Gm Tube PO PRN PRN Hypoglycemia Protocol Piperacillin/Tazobactam/Dextrose 3.375 gm in 50 mls @ 100 mls/hr 11/04/21 06:00 11/10/21 11:48 Zosyn 3.375 Gm/D5w 50ml Pm IVPB 100 mls/hr Q6H HANY Administration Dextrose 1,000 mls @ 100 mls/hr 11/04/21 13:56 Dextrose 5% 1,000 Ml IVPB PRN PRN Hypoglycemia Protocol Insulin Aspart 3 - 6 units 11/05/21 12:00 11/10/21 11:54 Insulin Aspart (*Bkc) 100 Units/Ml SUB-Q Not Given TIDWM [facility] Protocol Insulin Glargine 15 units 11/05/21 21:00 11/09/21 20:36 Insulin Glargine (*Bkc) 100 Units/Ml SUB-Q 15 units HS HANY Administration Morphine Sulfate 4 mg 11/03/21 22:49 Morphine Sulfate (*Crx) 4 Mg/Ml Inj IV PUSH Q2H PRN Pain Rated 7-10 Naloxone HCl 0.1 mg 11/06/21 14:06 Naloxone Hcl 0.4 Mg/Ml Vial IV PUSH Q2M PRN Opiate Reversal Ondansetron HCl 4 mg 11/03/21 22:49 Ondansetron Inj 4 Mg/2 Ml Vial IV PUSH Q4H PRN Nausea Senna/Docusate Sodium 2 tab 11/06/21 21:00 11/09/21 20:34 Senna/Docusate Sodium Tablet PO 2 tab HS HANY Administration Radiology Results: ITS Impressions Chest X-Ray 11/03/21 20:28 IMPRESSION: No acute cardiopulmonary process. Abdomen Ultrasound 11/04/21 16:56 IMPRESSION: 1. Dilated gallbladder with irregular wall thickening, biliary sludge, and multiple gallstones. These findings may reflect acute chol
--- NOTE | 2021-11-10 15:18 | P.DS_ITS ---
DS: Admitting Diagnosis Discharge Date 11/10/2021 Admitting Diagnosis acute cholecystitis DS: Discharge Diagnosis Discharge Diagnosis (1) Cholecystitis: Code(s): K81.9 - Cholecystitis, unspecified Status: Acute Assessment and Plan: Patient presented with nausea and vomiting. CT of the abdomen showed finding suggestive of acute cholecystitis * He was seen in consultation by General surgery * Right upper quadrant ultrasound showed dilated gallbladder with irregular wall thickening and multiple gallstones, normal common bile duct without evidence of choledocholithiasis * Treated with IV Zosyn * 11/06 attempted laparoscopic cholecystectomy, was not able to be completed due to dense adhesions * 11/07 underwent ultrasound-guided percutaneous cholecystostomy. * Bile cultures collected. Aerobic culture and with no growth, and anaerobic preliminary culture with no growth * Was able to advance to low-fat diet was able to tolerate well * Leukocytosis resolved and he remained afebrile * Will follow-up with General surgery in 1 week for drain follow-up * Home health was arranged for appropriate drain care * Patient will continue Augmentin for 10 days (2) Intractable nausea and vomiting: Code(s): R11.2 - Nausea with vomiting, unspecified Status: Resolved Assessment and Plan: Resolved. Secondary to above (3) Type 2 diabetes mellitus: Code(s): E11.9 - Type 2 diabetes mellitus without complications Status: Acute Assessment and Plan: A1c is 8.8. * Blood sugars elevated on admission as insulin was held while pt was NPO * Lantus was resumed and blood sugars remained well controlled throughout remainder of admission * Managed with Accu-Cheks and sliding scale insulin. * Continue home insulin regimen (4) Abnormal liver enzymes: Code(s): R74.8 - Abnormal levels of other serum enzymes Status: Acute Assessment and Plan: Likely secondary to cholecystitis. Resolved. (5) UTI (urinary tract infection): Code(s): N39.0 - Urinary tract infection, site not specified Status: Acute Assessment and Plan: UA abnormal, urine culture with growth of >100k Klebsiella pneumonia * Patient was asymptomatic however remained on appropriate antibiotics based on susceptibility report for treatment of acute cholecystitis as above. (6) Hypokalemia: Code(s): E87.6 - Hypokalemia Status: Acute Assessment and Plan: Resolved. Likely secondary to NPO status. Potassium remained stable once diet was advanced. (7) Pelvic lymphadenopathy: Code(s): R59.0 - Localized enlarged lymph nodes Status: Acute Assessment and Plan: Repeat CT of the abdomen/pelvis on 11/07 showed left periaortic and left pelvic lymphadenopathy concerning for metastatic prostate cancer. * Patient has history of prostate cancer and is s/p radical prostatectomy * He follows with urologist, Dr. An * PSA was elevated, >100.0 * Discussed case with Dr. An. His office has been trying to reach the patient for several weeks regarding these findings (discovered earlier on outpatient CT, not available in this EMR). * Dr. An saw the patient on 11/08 and explained importance of follow up * He will follow up on 11/15 to begin hormonal therapy DS: Summary Hospital Course Hospital Course: Date of admission: 11/03/2021 Date of discharge: 11/10/2021 Jai Escobar is a 71-year-old male with a history of type 2 diabetes mellitus and prostat
--- NOTE | 2021-11-10 15:18 | PM.DS ---
DS: Admitting Diagnosis Discharge Date 11/10/2021 Admitting Diagnosis acute cholecystitis DS: Discharge Diagnosis Discharge Diagnosis (1) Cholecystitis: Code(s): K81.9 - Cholecystitis, unspecified Status: Acute Assessment and Plan: Patient presented with nausea and vomiting. CT of the abdomen showed finding suggestive of acute cholecystitis He was seen in consultation by General surgery Right upper quadrant ultrasound showed dilated gallbladder with irregular wall thickening and multiple gallstones, normal common bile duct without evidence of choledocholithiasis Treated with IV Zosyn 11/06 attempted laparoscopic cholecystectomy, was not able to be completed due to dense adhesions 11/07 underwent ultrasound-guided percutaneous cholecystostomy. Bile cultures collected. Aerobic culture and with no growth, and anaerobic preliminary culture with no growth Was able to advance to low-fat diet was able to tolerate well Leukocytosis resolved and he remained afebrile Will follow-up with General surgery in 1 week for drain follow-up Home health was arranged for appropriate drain care Patient will continue Augmentin for 10 days (2) Intractable nausea and vomiting: Code(s): R11.2 - Nausea with vomiting, unspecified Status: Resolved Assessment and Plan: Resolved. Secondary to above (3) Type 2 diabetes mellitus: Code(s): E11.9 - Type 2 diabetes mellitus without complications Status: Acute Assessment and Plan: A1c is 8.8. Blood sugars elevated on admission as insulin was held while pt was NPO Lantus was resumed and blood sugars remained well controlled throughout remainder of admission Managed with Accu-Cheks and sliding scale insulin. Continue home insulin regimen (4) Abnormal liver enzymes: Code(s): R74.8 - Abnormal levels of other serum enzymes Status: Acute Assessment and Plan: Likely secondary to cholecystitis. Resolved. (5) UTI (urinary tract infection): Code(s): N39.0 - Urinary tract infection, site not specified Status: Acute Assessment and Plan: UA abnormal, urine culture with growth of >100k Klebsiella pneumonia Patient was asymptomatic however remained on appropriate antibiotics based on susceptibility report for treatment of acute cholecystitis as above. (6) Hypokalemia: Code(s): E87.6 - Hypokalemia Status: Acute Assessment and Plan: Resolved. Likely secondary to NPO status. Potassium remained stable once diet was advanced. (7) Pelvic lymphadenopathy: Code(s): R59.0 - Localized enlarged lymph nodes Status: Acute Assessment and Plan: Repeat CT of the abdomen/pelvis on 11/07 showed left periaortic and left pelvic lymphadenopathy concerning for metastatic prostate cancer. Patient has history of prostate cancer and is s/p radical prostatectomy He follows with urologist, Dr. An PSA was elevated, >100.[address] An. His office has been trying to reach the patient for several weeks regarding these findings (discovered earlier on outpatient CT, not available in this EMR). Dr. An saw the patient on 11/08 and explained importance of follow up He will follow up on 11/15 to begin hormonal therapy DS: Summary Hospital Course Hospital Course: Date of admission: 11/03/2021 Date of discharge: 11/10/2021 Jai Escobar is a 71-year-old male with a history of type 2 diabetes mellitus and prostate cancer who presented to the emergency department on 11/03/2021 with complaints of nausea, vomiting, and right upper quadrant pain. On presentation to the ED, he was mildly tachycardic with additional vital signs stable, he was afebrile, WBC 15.3, and CT of abdomen/pelvis showed findings consistent with acute cholecystitis. He was admitted to the hospitalist service for further evaluation and management and was seen in consultation by General s
[2021-11-10 15:26] VITALS: BP 130/77; PULSE 87; RESP 16; TEMP 36.6; O2SAT 98
[2021-11-10 16:42] LABS: Glucose Point of Care 172 mg/dl (65-105)
--- NOTE | 2021-11-10 18:42 | PC.NURSE ---
Education and charting document given on how to drain and keep track of output. pt verbalized understanding and completed teachback education.
== END 2021-11-10 19:15 | disposition home health service (06) | DRG 424 ==
LOC: ANHED 20:27 → ANH3MED 11-04 01:50
PROVIDERS: Emergency Medicine; Physician Assistant; Student in an Organized Health Care Education/Training Program; Surgery; Admitting Provider Internal Medicine; Emergency Provider Emergency Medicine; PCP Internal Medicine; Visit Provider Family Medicine
PROC: 0FT44ZZ Resection of Gallbladder, Percutaneous Endoscopic Approach (ICD-10-PCS; CPT 47562; principal; 2021-11-06 12:30)
DX: K80.01 Calculus of gallbladder with acute cholecystitis with obstruction (principal); N39.0 Urinary tract infection, site not specified; B96.1 Klebsiella pneumoniae [K. pneumoniae] as the cause of diseases classified elsewhere; K82.8 Other specified diseases of gallbladder; K66.0 Peritoneal adhesions (postprocedural) (postinfection); R59.0 Localized enlarged lymph nodes; E11.9 Type 2 diabetes mellitus without complications; E87.6 Hypokalemia; R74.8 Abnormal levels of other serum enzymes; Z20.822 Contact with and (suspected) exposure to COVID-19; E66.3 Overweight; Z68.27 Body mass index [BMI] 27.0-27.9, adult; Z79.4 Long term (current) use of insulin; Z79.82 Long term (current) use of aspirin; Z85.46 Personal history of malignant neoplasm of prostate; Z90.79 Acquired absence of other genital organ(s)
CPT/HCPCS: 36415; 36600; 47490; 71045; 74176; 74177; 76705; 80048; 80053; 80076; 81001; 82010; 82805; 82948; 83036; 83605; 83690; 83735; 84145; 84153; 84484; 85025; 85027; 85049; 85610; 85730; 86850; 86900; 86901; 87040; 87070; 87075; 87077; 87086; 87088; 87186; 87205; 87338; 87502; 93005; 96361; 96365; 96375; 99285; A9270; C1729; C9803; J1650; J1815; J1885; J2250; J2405; J2543; J2704; J3010; J3480; J7030; J7040; J7120; Q9966; Q9967; U0003; U0005

== ENCOUNTER 2021-12-21 13:20 | Outpatient (CLI) | payer MEDICARE, SELFPAY ==
--- NOTE | ~2021-12-21 | XR_ITS ---
EXAMINATION: XR catheter cholangiogram DATE: 12/21/2021 13:52 INDICATION: Acute cholecystitis. TECHNIQUE: I injected the percutaneous cholecystostomy tube with water-soluble contrast and took 9 fl uoroscopic images of the abdomen. Fluoroscopy exposure time was 0.3 minutes. COMPARISON: CT abdomen and pelvis 11/07/2021, 11/03/21 FINDINGS: There is a cholecystostomy tube in expected position. There are filling defects in the gall bladder, consistent with gallstones. The cystic duct is patent. The common bile duct is dilated. Cont rast passes to the duodenum. IMPRESSION: 1. Cholelithiasis. Percutaneous cholecystostomy tube in expected position. 2. Patent cystic duct. 3. Dilated common duct. Reviewed, dictated and finalized at location A.
== END 2021-12-21 13:21 | disposition home or self-care (01) ==
PROVIDERS: PCP Internal Medicine; Visit Provider Surgery
DX: K80.01 Calculus of gallbladder with acute cholecystitis with obstruction (principal); K80.20 Calculus of gallbladder without cholecystitis without obstruction
CPT/HCPCS: 47531; Q9966

== ENCOUNTER 2021-12-28 09:14 | Outpatient (CLI) | payer MEDICARE, SELFPAY ==
--- NOTE | 2021-12-28 09:00 | ECG_ITS ---
Measurements Intervals [place] Rate: 101 P: 33 ID: [id number] QRS: -2 QRSD: 89 T: 29 QT: 317 QTc: 411 Interpretive Statements SINUS TACHYCARDIA NONSPECIFIC T-WAVE ABNORMALITY- INFERIOR LEADS BASELINE ARTIFACT- I, II, III, AVR, AVL, AVF BORDERLINE ECG COMPARED TO ECG 11/03/2021 20:08:17 HR IS REDUCED Electronically Signed On 12-28-2021 12:37:24 CDT by [place] D.O.
[2021-12-28 10:30] LABS: Basophils Percent Auto 0.5 % (0.2-1.2); Eosinophils Absolute Auto 0.3 K/mm3 (0-0.3); Eosinophils Percent Auto 3.9 % (0-4.4); Hemoglobin 11.2 g/dL (14.0-18.0); Immature Granulocyte Absolute 0.02 K/mm3 (0.00-0.031); Immature Granulocyte Percent A 0.3 % (0-0.5); Lymphocytes Absolute Auto 2.79 K/mm3 (0.9-3.2); Lymphocytes Percent Auto 43.1 % (18.3-44.2); Mean Corpuscular Hemoglobin 26.1 pg (26-34); Mean Corpuscular Volume 81.6 fl (80-100); Mean Platelet Volume 10.5 fl (7.4-10.4); Monocytes Absolute Auto 0.6 K/mm3 (0.1-0.6); Monocytes Percent Auto 8.5 % (2.6-8.5); Neutrophils Absolute Auto 2.8 K/mm3 (1.3-6.7); Neutrophils Percent Auto 43.7 % (45.5-73.1); Platelet Count Result 239 k/mm3 (150-375); Red Blood Count 4.29 M/mm3 (4.6-6.20); Red Cell Distribution Width 13.7 % (11.5-14.5); White Blood Count 6.5 K/mm3 (4.5-10.0)
[2021-12-28 10:34] LABS: Appearance Urine Slightly Cloudy (Clear); Bilirubin Urine Negative (Negative); Blood Urine Negative (Negative); Color Urine Yellow (Yellow); Glucose Urine UA 2+ mg/dL (Negative); Ketones Urine Negative (Negative); Leukocyte Esterase Ur 1+ LEU/UL (Negative); Nitrate Urine Negative (Negative); Protein Urine Negative (Negative); Specific Grav Ur 1.015 (1.001-1.035); Urobilinogen Urine 0.2 mg/dL (<2.0); pH Urine 5.5 (5.0-9.0)
[2021-12-28 10:38] LABS: Bacteria Urine Trace /hpf; Mucus Urine Rare /lpf; Squamous Epithelial Cell Urine Rare /hpf (Few); WBC Clumps Urine Present /HPF; WBC Urine 31-50 /hpf
[2021-12-28 10:39] LABS: Alanine Aminotransferase 220 U/L (6-50); Albumin Level 3.9 g/dL (3.5-5.1); Alkaline Phosphatase 207 U/L (38-126); Amylase 47 U/L (30-110); Anion Gap 14 mmol/L (8-16); Aspartate Amino Transferase 53 U/L (17-59); Bilirubin,Total 0.2 mg/dL (0.2-1.3); Blood Urea Nitrogen 19 mg/dL (9-20); Calcium 9.2 mg/dL (8.4-10.2); Carbon Dioxide 26 mmol/L (22-30); Chloride 97 mmol/L (98-107); Estimated Glomerular Filt Rate > 60; Glucose 428 mg/dL (65-110); Lipase 38 U/L (23-300); Potassium 4.3 mmol/L (3.4-5.0); Sodium 137 mmol/L (137-145)
[2021-12-28 11:06] LABS: Add Urine Microscopic? YES
== END 2021-12-28 09:15 | disposition home or self-care (01) ==
LOC: ANHSURGERY 09:20
PROVIDERS: PCP Internal Medicine; Visit Provider Surgery
DX: K80.01 Calculus of gallbladder with acute cholecystitis with obstruction (principal); Z01.818 Encounter for other preprocedural examination
CPT/HCPCS: 36415; 80053; 81001; 82150; 82248; 83690; 85025; 87077; 87086; 87186; 93005

== ENCOUNTER 2021-12-28 09:21 | Outpatient (CLI) | payer MEDICARE, SELFPAY ==
[2021-12-28 14:21] LABS: Hemoglobin A1C 9.9 % (<5.7)
== END 2021-12-28 09:22 | disposition home or self-care (01) ==
PROVIDERS: PCP Internal Medicine; Visit Provider Internal Medicine
DX: E11.9 Type 2 diabetes mellitus without complications (principal); E78.5 Hyperlipidemia, unspecified; Z79.899 Other long term (current) drug therapy
CPT/HCPCS: 36415; 83036

== ENCOUNTER 2021-12-31 01:28 | Day surgery (SDC) | payer MEDICARE, SELFPAY ==
--- NOTE | 2021-12-21 08:14 | PC.NURSE ---
Report to the Outpatient Waiting Room, entrance under the green pavilion located off [facility], at time _0600 on date ___12/31/21____. OR Time: _729 . - You and your visitor will be asked to self-screen and do not enter if you have any COVID symptoms. - Only one visitor and NO children visitors are allowed at this time. - The patient visitor is requested to leave or wait in car when not with patient due to restrictions. - A mask is required within the hospital. Patients may have clear liquids (water, carbonated beverages, clear teas, apple juice) until 3 hours prior to surgery with a maximum of 20 ounces. - No food from midnight until time of surgery - Infants may have breast milk until 4 hours before surgery, infant formula 6 hours prior to surgery. - Children will be allowed to drink immediately following surgery. If applicable, please bring a bottle or sippy cup to assist with drinking. Juice, water, soda, and popsicles are readily available. For infants on formula, please bring formula the day of surgery. Pacifiers are allowed. Take the following medications with a SIP of water the morning of surgery: _NONE Medications to discontinue per physician ____ALL VITAMINS 3 DAYS PRE OP Date to take last dose___12/27/21 Please no make-up, nail dutch, hairspray, perfume, deodorant, or body powder the day of surgery. No jewelry (including any body piercings) or valuables the day of surgery, leave them at home. Please take a shower or bath the night before, or the morning of, surgery with an antibacterial soap. Wear comfortable, loose fitting clothing. Children are encouraged to wear pajamas. - Jewelry must be removed prior to entering the operating room. Rings and piercings that are not removed may be cut off. - The hospital will not accept responsibility for valuables. - Please leave all valuables, including medications, at home the day of surgery.HIBICLENS SHOWER MORNING OF SURGERY If you are going home after surgery, a licensed warehouse driver must drive you home. - NO public transportation without another adult. - We recommend that an adult stay with you for 24 hours following discharge. - We also recommend that you do not drive, make important decision, drink alcoholic beverages, or take any drugs that were not prescribed by your health care provider for at least 24 hours after your discharge time. For Pediatric surgeries, we recommend two adults accompany the child home (only one inside the building at this time). Follow any additional instructions given to you from your surgeon. If you or anyone in your household have experienced Covid symptoms in the past week, please notify your surgeon or the nurse liaison at the phone number below for possible testing. Telephone instructions given to __PATIENT and asked if any additional questions and then verbalized understanding. Patient advised to call surgeon office or pre surgery nurse liaison [phone] if any additional questions.
[2021-12-21 08:21] VITALS: BMI 28.6
[2021-12-31] VITALS (11 sets, daily range): BP systolic 108–149; BP diastolic 73–101; PULSE 80–110; RESP 14–23; TEMP 36.4–36.9; O2SAT 95–100
--- NOTE | ~2021-12-31 | XR_ITS ---
EXAMINATION: XR cholangiogram surg 1st inj DATE: 12/31/2021 11:55 INDICATION: Intraoperative cholangiogram TECHNIQUE: 151 fluoroscopic images of the right upper quadrant were obtained during intraoperative ch olangiography performed by the surgeon. I was not present in the operating room. Fluoroscopy exposure time was 25.6 seconds. COMPARISON: 12/21/2021 FINDINGS: Again noted is dilation of the common bile duct. Contrast passes into the duodenum. IMPRESSION: 1. Dilated common bile duct. Reviewed, dictated and finalized at location B.
[2021-12-31] MEDS: ACETAMINOPHEN 500 MG TABLET 1000 MG PO (06:21)
--- NOTE | 2021-12-31 06:57 | WPDANESEPPF ---
Anes - Initial Pre Proc Eval Procedure: Operation Date: 12/31/21 07:30 Proposed Procedures p Laparoscopic Cholecystectomy, Possible Intra Operative Cholangiogram, Possible Open Cholecystectomy - Edmund Qureshi MD Date/Time: 12/31/21 06:57 Surgeon: Edmund Qureshi MD Pre Op Diagnosis: acute cholecystitis with cholelithiasis Patient Data Age: 71 Gender: M Height: 1.83 m Weight: 95.8 kg Allergies Allergy/AdvReac Type Severity Reaction Status Date / Time No Known Allergies Allergy Verified 12/31/21 06:15 Home Medications Medication Instructions Recorded Confirmed Type aspirin 81 mg tablet 81 mg PO DAILY 05/17/21 12/31/21 History insulin glargine 100 unit/mL (3 30 unit subcut BID 05/17/21 12/31/21 History mL) subcutaneous pen (Lantus Solostar U-100 Insulin) hydrocodone 5 mg-acetaminophen 325 1 tablet PO Q6-8H PRN breakthrough 11/10/21 12/21/21 Rx mg tablet pain #10 tabs atorvastatin 20 mg tablet 20 mg PO DAILY 12/21/21 12/31/21 History gabapentin 300 mg capsule 300 mg PO PRN PRN Pain 12/21/21 12/31/21 History multivitamin 1 tablet PO DAILY 12/21/21 12/31/21 History sulfamethoxazole 800 1 tablet PO BID #6 tabs 12/28/21 12/31/21 Rx mg-trimethoprim 160 mg tablet (Bactrim DS) Patient hx anesthesia problems: none Family hx anesthesia problems: none Results Review: All pre-operative results and documents have been reviewed as part of the pre-operative evaluation. [facility] Past Medical History Medical History Cholecystitis Diabetes Overweight (BMI 25.0-29.9) Prostate cancer Surgical History Surgical History H/O prostatectomy Hx of laparoscopy Diagnostic laparoscopy with lysis of adhesion 11/06/21. Family History Family History Other Unknown family medical history Social History Social History Smoking status: Never smoker Second hand tobacco smoke exposure: No Alcohol intake: former Substance use: never Living arrangements: alone Spiritual care concerns: No Anes - Eval Final PreProcedure Day of Procedure 12/31/21 06:57 Patient weight: overweight Heart: regular rate and rhythm Lungs: clear to auscultation Airway: Mallampati scale class II and special considerations poor dentition Last oral intake: >/= 8 hours ASA classification: III Emergent: no Anesthetic plan: proceed Anesthesia type and monitoring: general ETT and standard monitoring Results Review: All pre-operative results and documents have been reviewed as part of the pre-operative evaluation. Informed Consent: The patient's anesthetic plan and its attendant risks and benefits were discussed with the patient/family/POA. Questions were solicited and answers provided to the satisfaction of the patient/family/POA.
[2021-12-31 07:16] LABS: Glucose Point of Care 213 mg/dl (65-105)
--- NOTE | 2021-12-31 07:17 | WPDHPUPDATE1 ---
History and Physical Update Update Date/Time: 12/31/21 07:17 History and Physical has been reviewed, including an updated exam of the patient. There are changes in the patient's condition. He has had an elevated blood sugar on preop labs and was asked to follow this more carefully He also had evidence of an UTI on his pre-op UA so took Bactrim DS over the weekend BID. He also knows that he is at increased risk of needng an open procedure in view of his previous GB infection. Risks, benefits, and alternatives have been discussed and questions answered. Patient agrees to proceed with procedure.
[2021-12-31] MEDS: KETOROLAC 15 MG/ML VIAL (*BKC) IV PUSH (07:24)
[2021-12-31] MEDS: LACTATED RINGERS 1,000 ML 30 ML IV CONT ×2 (07:24→11:36)
[2021-12-31] MEDS: ceFAZolin 2 GM/D5W 50 ML 2 GM/50 ML BAG IVPB (07:30)
[2021-12-31] MEDS: BUPIVACAINE/EPINEPHRINE 0.25% 50 ML VIAL 30 ML INFILTRATE (08:04)
--- NOTE | 2021-12-31 11:53 | W.PM.PROC2 ---
Procedure Note - Detailed Date of Procedure 12/31/21 Pre-op Diagnosis acute cholecystitis with cholelithiasis Post-op Diagnosis Same Procedure Performed Laparoscopic cholecystectomy with intraoperative cholangiogram Surgeon Edmund Qureshi MD [employer] [email or web address] Anesthesia General Indications This patient is a pleasant 71-year-old black male who was previously hospitalized and had acute cholecystitis which he had ignored for about 1 week at home. He had severe inflammation at the time of attempted laparoscopic cholecystectomy in October. Because it appeared that omentum and colon were completely covering the gallbladder and there was a severe inflammatory reaction, I stopped the procedure, we closed and he had a percutaneously placed ultrasound-guided cholecystostomy tube completed the following day. Therefore, we have now waited for approximately 6-8 weeks and he presents for elective interval laparoscopic cholecystectomy possible open if necessary. The indications for the surgery are continued gallstones and significant diabetes with blood sugars running 3-400. Cholecystostomy tube cholangiogram recently showed that his cystic duct is patent but fairly long, so there is now a good chance of doing a successful laparoscopic cholecystectomy now that much of the inflammation has settled after drainage and antibiotic treatment. Patient understands that he may have to have an open procedure. Findings Findings were still significant chronic scarred down adhesions and had be worked through for greater than 1 hour. These were mainly omental but also the duodenum was densely adhered to the lower quarter of the a gallbladder around the triangle of [place]ot. Also, his transverse colon along with omentum was completely covering the underside of the gallbladder and had to be dissected away. The gallbladder was thickened and contracted but contained the known percutaneous drain which was subsequently removed during the procedure. Description of Procedure Procedure Details: Patient was seen preoperatively in the holding area and risks, benefits and alternatives confirmed. Patient was taken to the operating room and general anesthesia was induced. A time out was then preformed with the surgery team confirming patient and site of surgery. The abdomen was prepped and draped in the usual sterile fashion. Incision was made transversely just below the umbilicus. Two stay sutures of O-Vicryl were used to elevate the mid-line fascia beneath the umbilicus and a small incision was made into the peritoneum under direct vision. The peritoneum was entered. The 12 mm Solis cannula was introduced under direct vision. First under low flow and then under high flow the abdomen was insufflated with carbon dioxide never exceeding a pressure of 15. Three 5 mm trocars were then introduced under direct vision. The following trocars were introduced under direct vision: a 5 mm in the epigastrium and two 5 mm trocars along the right costal margin. There were significant adhesions of the omentum to the underside of the gallbladder and these were taken down with blunt and sharp dissection. These adhesions included dense chronic scarring of the right portion of the transverse colon and it's associated omentum to the underside of the GB such that the GB could not even be seen until more than an hour of tedious dissection was completed. Bovie cautery was used for hemostasis on the [place] dissector, the right angle hook like cautery and the dissecting scissors. The gall bladder was grasped and the cystic duct and artery were dissected free and I carefully identified a window of safety with only two other structures in the area of dense thickened connective tissue. These being the cystic duct and the cystic artery. I then used a 5 mm endo-clip certified nurses aide to place one clip on what I thought was the cystic artery just superior to the cystic duct where it joins the GB. We then removed a
[2021-12-31 11:58] LABS: Glucose Point of Care 353 mg/dl (65-105)
[2021-12-31] MEDS: INSULIN HUMAN REGULAR (*BKC) 100 UNITS/ML 6 UNITS SUB-Q ×2 (12:05→12:52)
[2021-12-31 12:44] LABS: Glucose Point of Care 316 mg/dl (65-105)
[2021-12-31] MEDS: ONDANSETRON INJ 4 MG/2 ML VIAL IV PUSH (13:27)
[2021-12-31 13:40] LABS: Glucose Point of Care 331 mg/dl (65-105)
[2021-12-31] MEDS: INSULIN HUMAN REGULAR (*BKC) 100 UNITS/ML 12 UNITS SUB-Q (13:46)
[2021-12-31] MEDS: oxyCODONE HCL (*CRX) 5 MG TAB IR PO (13:48)
[2021-12-31 14:24] LABS: Glucose Point of Care 310 mg/dl (65-105)
--- NOTE | 2021-12-31 14:30 | SUR.PHASEII ---
[address] edge on recent [id number] after given 12u at 1345, dr edge ok with patient being discharged and to check blood glucose at bedtime
== END 2021-12-31 14:55 | disposition home or self-care (01) ==
PROVIDERS: PCP Internal Medicine; Visit Provider Surgery
PROC: 0FT44ZZ Resection of Gallbladder, Percutaneous Endoscopic Approach (ICD-10-PCS; CPT 47562; principal; 2021-12-31 07:30)
DX: K80.12 Calculus of gallbladder with acute and chronic cholecystitis without obstruction (principal); E11.9 Type 2 diabetes mellitus without complications; Z79.82 Long term (current) use of aspirin; Z79.4 Long term (current) use of insulin; Z85.46 Personal history of malignant neoplasm of prostate
CPT/HCPCS: 47563; 36415; 74300; 80053; 81001; 82150; 82248; 82948; 83690; 85025; 87077; 87086; 87186; 88304; 93005; A9270; J0690; J1100; J1815; J1885; J2405; J2704; J2710; J3010; J7030; J7120

== ENCOUNTER 2022-05-09 09:17 | Outpatient (CLI) | payer MEDICARE, SELFPAY ==
[2022-05-09 13:24] LABS: Hemoglobin A1C 13.7 % (<5.7)
== END 2022-05-09 09:18 | disposition home or self-care (01) ==
LOC: ANHLAB 09:18
PROVIDERS: PCP Internal Medicine; Visit Provider Internal Medicine
DX: R73.9 Hyperglycemia, unspecified (principal)
CPT/HCPCS: 36415; 83036

== ENCOUNTER 2023-02-05 14:08 | Outpatient (CLI) | payer MEDICARE, SELFPAY ==
[2023-02-05 15:39] LABS: Hematocrit 39.9 % (42.0-52.0); Hemoglobin 12.8 g/dL (14.0-18.0); Mean Corpuscular HGB Conc 32.1 g/dl (32-36); Mean Corpuscular Hemoglobin 25.5 pg (26-34); Mean Corpuscular Volume 79.6 fl (80-100); Mean Platelet Volume 10.7 fl (7.4-10.4); Platelet Count Result 257 k/mm3 (150-375); Red Blood Count 5.01 M/mm3 (4.6-6.20); Red Cell Distribution Width 13.6 % (11.5-14.5); White Blood Count 6.7 K/mm3 (4.5-10.0)
[2023-02-05 15:51] LABS: Alanine Aminotransferase 17 U/L (6-50); Albumin Level 4.1 g/dL (3.5-5.1); Alkaline Phosphatase 95 U/L (38-126); Anion Gap 7 mmol/L (8-16); Aspartate Amino Transferase 24 U/L (17-59); Bilirubin,Total 0.6 mg/dL (0.2-1.3); Blood Urea Nitrogen 12 mg/dL (9-20); Calcium 9.1 mg/dL (8.4-10.2); Carbon Dioxide 27 mmol/L (22-30); Chloride 100 mmol/L (98-107); Cholesterol 174 mg/dL (0-200); Estimated Glomerular Filt Rate > 60; Glucose 167 mg/dL (65-110); HDL Direct 38 mg/dL; Potassium 3.9 mmol/L (3.4-5.0); Sodium 134 mmol/L (137-145); Triglycerides 105 mg/dL (<150)
[2023-02-05 16:02] LABS: LDL Cholesterol Direct 87 mg/dL
[2023-02-05 18:13] LABS: Vitamin D 25 Hydroxy 16.9 ng/mL
[2023-02-05 20:59] LABS: Hemoglobin A1C 11.8 % (<5.7)
== END 2023-02-05 14:09 | disposition home or self-care (01) ==
LOC: ANHLAB 14:10
PROVIDERS: PCP Emergency Medicine; Visit Provider Emergency Medicine
DX: E55.9 Vitamin D deficiency, unspecified (principal); E78.5 Hyperlipidemia, unspecified; E11.9 Type 2 diabetes mellitus without complications; R53.83 Other fatigue
CPT/HCPCS: 36415; 80053; 80061; 82306; 83036; 84443; 85027

== ENCOUNTER 2023-03-27 13:30 | Outpatient (RCR) | payer MEDICARE, SELFPAY ==
--- NOTE | 2023-02-17 14:11 | PCPTNOTE ---
Patient was No show for today's Evaluation appointment.
--- NOTE | 2023-02-20 09:42 | OPREHPOC ---
Outpatient Therapy Plan of Care This is a Multidisciplinary Plan of Care that may contain components documented by all disciplines (PT, OT, and ST.) PT Problem 1 PT Problem #1 Knowledge Deficit PT Goal 1 Goal 1* indep with HEP PT Problem 2 PT Problem #2 Impaired Strength PT Goal 1 Goal improve LE strength to improve gait and mobility skills: 1* pt stand with upright posture--hips, knees and trunk in neutral position 2* pt perform 20 reps of R and L LE exercises on mat 3* pt transfer sit/stand with use of 1 UE 4* increase ankle DF strength, with sitting and heels on floor, ankle DF to 0' x 20 reps PT Problem 3 PT Problem #3 Impaired Functional Mobil PT Goal 1 Goal 1* 5 reps sit/stand test in 19 seconds 2* 2 minute walking test distance of 460' with cane 3* TUG 14 seconds with cane 4* Tinetti balance/gait score of 24/28
--- NOTE | 2023-02-20 09:43 | PTOPEVAL1 ---
Assessment and note entered by Gladys Haywood, PT Evaluation Information Assessment Status Evaluation Diagnosis repeated falls Onset August 2022 Subjective Information gradual increase in weakness and problems getting around; started using a cane or wheeled walker with walking; in the past 6 months have fallen 7- 8x, with walking, lose balance and stumble; ACTIVITY: at home, requires assist with yard work, cooking, live alone, with local family help, limited driving, family take him to grocery store; indep with bathing and dressing; 2 entry steps from garage but have ramp on them; have [employer] membership, not been there for about past 4 months --did ride stationary bike GOAL: walk better; Reported Pain Level Pain Score 0: Self Report Assessment PT Clinical Summary Jai has the diagnosis of falls. He reports gradual decline in mobility with 7-8 falls in the past 6 months, and has started using a cane or wheeled walker. Family assist with home and shopping tasks. With the evaluation: decreased LE strength L ankle weaker than R; requires use of both UE for standing up from 18 seat height; 5 reps sit/ stand time of 27 seconds; TUG 17 seconds; 2 minute walking distance of 420' with cane; Tinetti balance/gait score of 16/28= high risk for falls; in standing, he has flexed posture. Skilled PT services are indicated to increase LE strength, gait and balance skills, with education for HEP, to decrease risk for falls and improve mobility skills. Plan of Care Interventions Gait Training,Neuro Re-education,Patient Education,Therapeutic Activities,Therapeutic Exercise PT Services Indicated Yes Treatment Frequency and 2x/wk for 5 weeks Duration These treatments will address the objective and functional deficits as defined above. The patient will be advanced safely and appropriately in order for the patient to progress towards his/her prior level of function. Additional exercises will be introduced and as well as a comprehensive home exercise program upon discharge, if needed, ?to ensure carryover of functional gains achieved in the clinic. This treatme
--- NOTE | 2023-03-06 13:29 | SUR.PHASEII ---
Pt. was a no show for his PT appointment this date. Called and spoke to pt. and he reported he thought his appointment was a different day. Patient was going to try to reschedule if possible.
--- NOTE | 2023-03-27 14:24 | PTOPDC ---
Assessment and note entered by Gladys Haywood, PT Discharge Information Assessment Status Discharge Diagnosis repeated falls Onset August 2022 Subjective Information walking is better, use the cane only when go out of the house; is doing the exercises 10-15 times each; have not had any falls; Reported Pain Level Pain Score 0: Self Report Assessment PT Clinical Summary Jai has received 11 PT sessions and did not show for one appointment. Compared to the initial evaluation: he has improved in areas: LE strength; transfer sit/stand upright trunk and hip extension in standing; time with 5 rep sit/stand transfer from 27 to 18 seconds; TUG from 17 to 14 sec and did not use device; Tinetti balance score from 16 to 23/28; education on HEP and safety with mobility. His 2 minute walking distance was 20' less. The goals were achieved, except with the 2 minute walking distance. Discharge PT services, He is to continue with HEP and increase activity as tolerated. Plan of Care PT Services Indicated No
== END 2023-03-28 09:17 | disposition home or self-care (01) ==
LOC: ANHPT 13:30
PROVIDERS: PCP Emergency Medicine; Visit Provider Emergency Medicine
DX: R29.6 Repeated falls (principal)
CPT/HCPCS: 97110; 97112; 97161; 97530

== ENCOUNTER 2023-03-28 13:15 | Outpatient (CLI) | payer MEDICARE, SELFPAY | END 2023-03-28 13:16 | disposition home or self-care (01) | LOC: ANHAUDIO 13:15 | PROVIDERS: PCP Emergency Medicine; Visit Provider Emergency Medicine | DX: H91.90 Unspecified hearing loss, unspecified ear (principal) | CPT/HCPCS: 99199 ==

== ENCOUNTER 2023-04-17 16:58 | Outpatient (CLI) | payer MEDICARE, SELFPAY ==
[2023-04-17 17:44] LABS: Alanine Aminotransferase 24 U/L (6-50); Aspartate Amino Transferase 32 U/L (17-59)
== END 2023-04-17 16:59 | disposition home or self-care (01) ==
PROVIDERS: PCP Emergency Medicine; Visit Provider Podiatrist Foot & Ankle Surgery
DX: B35.1 Tinea unguium (principal)
CPT/HCPCS: 36415; 84450; 84460

== ENCOUNTER 2023-11-27 12:00 | Emergency (ER) | payer MEDICARE, SELFPAY ==
[2023-11-27 12:09] VITALS: BP 151/95; PULSE 92; RESP 22; O2SAT 96
[2023-11-27 12:15] VITALS: BP 151/95; PULSE 89; RESP 16; TEMP 36.6; O2SAT 98
[2023-11-27 12:27] LABS: Glucose Point of Care 304 mg/dl (65-105)
[2023-11-27 12:31] VITALS: BP 153/99; PULSE 85; RESP 22; TEMP 36.6; O2SAT 97
[2023-11-27 12:33] LABS: Basophils Percent Auto 0.5 % (0.2-1.2); Eosinophils Absolute Auto 0.2 K/mm3 (0-0.3); Eosinophils Percent Auto 2.6 % (0-4.4); Hematocrit 37.1 % (42.0-52.0); Immature Granulocyte Absolute 0.02 K/mm3 (0.00-0.031); Immature Granulocyte Percent A 0.3 % (0-0.5); Lymphocytes Percent Auto 36.9 % (18.3-44.2); Mean Corpuscular HGB Conc 32.3 g/dl (32-36); Mean Corpuscular Hemoglobin 26.3 pg (26-34); Mean Corpuscular Volume 81.2 fl (80-100); Mean Platelet Volume 10.5 fl (7.4-10.4); Monocytes Absolute Auto 0.7 K/mm3 (0.1-0.6); Neutrophils Absolute Auto 3.2 K/mm3 (1.3-6.7); Neutrophils Percent Auto 49.7 % (45.5-73.1); Platelet Count Result 258 k/mm3 (150-375); Red Blood Count 4.57 M/mm3 (4.6-6.20); Red Cell Distribution Width 13.7 % (11.5-14.5); White Blood Count 6.5 K/mm3 (4.5-10.0)
[2023-11-27] MEDS: SODIUM CHLORIDE 0.9% IV 1,000 ML 999 ML IV CONT ×2 (12:40→13:26)
[2023-11-27 12:48] LABS: Alanine Aminotransferase 14 U/L (6-50); Albumin Level 3.9 g/dL (3.5-5.1); Alkaline Phosphatase 86 U/L (38-126); Anion Gap 11 mmol/L (4-12); Aspartate Amino Transferase 21 U/L (17-59); Bilirubin,Total 0.2 mg/dL (0.2-1.3); Blood Urea Nitrogen 24 mg/dL (9-20); Calcium 9.3 mg/dL (8.4-10.2); Carbon Dioxide 25 mmol/L (22-30); Chloride 100 mmol/L (98-107); Estimated CRCL calculation 74 ml/min; Estimated Glomerular Filt Rate > 60; Glucose 343 mg/dL (65-110); Magnesium 1.6 mg/dL (1.6-2.3); Phosphorus 3.4 mg/dL (2.5-4.5); Sodium 136 mmol/L (137-145)
--- NOTE | 2023-11-27 12:51 | ED.GENADULT ---
HPI - General Adult General Chief complaint: Recheck/Abnormal Lab/Rx Stated complaint: high blood sugar Time Seen by Provider: 11/27/23 12:18 History of Present Illness HPI narrative: 73-year-old male with history of type 2 diabetes presenting to the emergency department for evaluation for hyperglycemia. Patient has had poorly controlled blood sugars over the last few months typically runs between 250 and 350. Patient states he has was take Lantus twice daily but states sometimes he misses it or only takes it once a day. Patient does not seem compliant with his diabetic diet. Patient is going to have follow-up with Dr. Ram this is not until December 22. Patient has missed his previous physician appointments due to not being able to have a ride. Patient does complain of increased generalized fatigue today. Patient denies any associated chest pain or shortness of breath, nausea vomiting diarrhea, abdominal pain or pain with urination. Related Data Home Medications Medication Instructions Recorded Confirmed insulin glargine 100 unit/mL (3 30 unit subcut BID 05/17/21 01/28/23 mL) subcutaneous pen (Lantus Solostar U-100 Insulin) Allergies Allergy/AdvReac Type Severity Reaction Status Date / Time No Known Allergies Allergy Verified 01/28/23 13:04 Review of Systems Review of Systems: All systems reviewed & are unremarkable except as noted in HPI and below PMFSH Past Medical History Medical History Arthritis Cholecystitis Diabetes Overweight (BMI 25.0-29.9) Prostate cancer Surgical History Surgical History H/O prostatectomy History of laparoscopic cholecystectomy 12/31/2021 laparoscopic cholecystectomy with intraoperative cholangiogram Hx of laparoscopy Diagnostic laparoscopy with lysis of adhesion 11/06/21. Family History Family History Other Diabetes mellitus Social History Social History Smoking status: Never smoker Second hand tobacco smoke exposure: No Alcohol intake: former Substance use: never Lack of Transportation: No Lack of Food: Never True Current Housing: I Have Housing Concerned About Future Housing: No Difficulty Paying Gas/Electric Bills: No Difficulty Paying for Meds: No Currently Unemployed: No Education: High School Diploma/GED Living arrangements: alone Spiritual care concerns: No Exam Narrative: APPEARANCE: Well appearing, no pain, no distress, well-nourished. HEAD: normocephalic, atraumatic. EYES: PERRLA/EOMI, conjunctivae clear. NOSE: Normal no drainage EARS:TMS clear with good light reflex. THROAT: Pharynx clear, no exudate. NECK: Supple. No adenopathy, no masses. RESPIRATORY: Airway patent, respirations nonlabored. Clear to auscultation bilaterally, no rales, rhonchi, wheezing. CARDIOVASCULAR: Regular rate and rhythm without murmurs rubs or gallops. ABDOMINAL: Soft, nontender, nondistended, normal bowel sounds MUSCULOSKELETAL: Moves all extremities. Strength/ROM intact, No edema, No calf tenderness. NEURO: Alert. Cranial nerves II through XII intact. Grossly intact SKIN: Warm, dry. Normal Color Course Course Emergency Course: Patient felt improved with treatment and was discharged home with antibiotics for urinary tract infection. Vital Signs Vital signs: Vital Signs Pulse Rate 92 11/27/23 12:09 Respiratory Rate 22 H 11/27/23 12:09 Blood Pressure 151/95 H 11/27/23 12:09 Pulse Oximetry 96 11/27/23 12:09 Temperature 97.9 F 11/27/23 15:00 Pulse Rate 80 11/27/23 15:00 Respiratory Rate 13 11/27/23 15:00 Blood Pressure 159/90 H 11/27/23 15:00 Pulse Oximetry 98 11/27/23 15:00 Oxygen Delivery Room Air 11/27/23 12:15 Medical Decision Making [facility]
[2023-11-27 13:01] LABS: Hemoglobin A1C 13.9 % (<5.7)
[2023-11-27 13:11] LABS: Beta-Hydroxybutyrate/Acetoacetate 0.25 mmol/L (0.02-0.27)
[2023-11-27 13:17] LABS: Add Urine Microscopic? YES; Appearance Urine Cloudy (Clear); Bacteria Urine 4+ /hpf; Bilirubin Urine Negative (Negative); Blood Urine 1+ (Negative); Color Urine Yellow (Yellow); Glucose Urine UA 3+ mg/dL (Negative); Ketones Urine Negative (Negative); Leukocyte Esterase Ur 1+ LEU/UL (Negative); Nitrate Urine Negative (Negative); Non Pathogenic Casts 0-2; Protein Urine Trace mg/dL (Negative); RBC Urine 0-2 /hpf (0-2); Specific Grav Ur 1.017 (1.001-1.035); Squamous Epithelial Cell Urine Few /hpf (Few); Urobilinogen Urine 0.2 mg/dL (<2.0); WBC Urine 21-50 /hpf (0-3); pH Urine 5.5 (5.0-9.0)
[2023-11-27 13:28] VITALS: BP 158/88; PULSE 83; RESP 17; TEMP 36.6; O2SAT 99
[2023-11-27 14:01] VITALS: BP 154/94; PULSE 83; RESP 17; O2SAT 97
[2023-11-27 14:54] LABS: Glucose Point of Care 296 mg/dl (65-105)
[2023-11-27 15:00] VITALS: BP 159/90; PULSE 80; RESP 13; TEMP 36.6; O2SAT 98
== END 2023-11-27 15:17 | disposition home or self-care (01) ==
PROVIDERS: Emergency Provider Emergency Medicine; PCP Emergency Medicine
DX: E11.65 Type 2 diabetes mellitus with hyperglycemia (principal); N39.0 Urinary tract infection, site not specified; T38.3X6A Underdosing of insulin and oral hypoglycemic [antidiabetic] drugs, initial encounter; E66.3 Overweight; Z68.30 Body mass index [BMI] 30.0-30.9, adult; M19.90 Unspecified osteoarthritis, unspecified site; Z85.46 Personal history of malignant neoplasm of prostate; Z90.49 Acquired absence of other specified parts of digestive tract; Z90.79 Acquired absence of other genital organ(s); Z79.4 Long term (current) use of insulin
CPT/HCPCS: 36415; 80053; 81001; 82010; 82948; 83036; 83735; 84100; 85025; 87077; 87086; 87088; 87186; 96361; 96365; 99284; J0696; J7030

== ENCOUNTER 2024-01-07 09:13 | Outpatient (CLI) | payer MEDICARE, SELFPAY | END 2024-01-07 09:14 | disposition home or self-care (01) | PROVIDERS: PCP Emergency Medicine; Visit Provider Emergency Medicine | DX: H90.41 Sensorineural hearing loss, unilateral, right ear, with unrestricted hearing on the contralateral side (principal); H90.72 Mixed conductive and sensorineural hearing loss, unilateral, left ear, with unrestricted hearing on the contralateral side | CPT/HCPCS: 92557 ==

== ENCOUNTER 2024-07-08 14:31 | Outpatient (CLI) | payer MEDICARE, SELFPAY ==
--- OUTSIDE RECORDS SUMMARY | 2024-07-08 14:59 | XMS_ITS | Continuity of Care Document ---
Author Organization [facility] Address [address] [place] [address] Phone Care Team Providers Care Orthopedic Brace Maker Name Role Phone Valeria Ramires MD Unavailable [...] and evening meals 1000 MG - Active OmbitronTouch Delica Lancets 33 gauge to test twice [...] DOSE ASA 81 MG TAB 1 QD-daily 1 - Active Vitamin B-12 500 mcg tablet Take 2 tablets by mouth once daily - Active Advance Directives Directive Yes / No Effective Date File Name No Information Encounters Encounter Description Practice Location Reason(s) For Visit Diagnoses Date Provider Providers Copied on Encounter [facility], [address], [place], [place], [address] , [place] tel: [phone] [place] No Information 9 Aopllolizbeth Valeria. [address], [address], [place], [place], [address], [place]. tel:[phone] [facility], [address], [place], [place], [address] , [place] tel: [phone] [place] No Information 7 Verito Buck. [address], [facility] [address], [place], [place], [address], [place]. tel:[phone] [facility], [address], [place], [address] , [place] tel: [phone] [place] Anemia, unspecified type 7 Apollolizbeth Valeria. [address], [address], [place], [place], [address], [place]. tel:[phone] [employer], [address], [place], [address] , [place] tel: [phone] [place] Type 2 diabetes mellitus with peripheral neuropathyOther hyperlipidemiaTac hycardiaElevated PSAHistory of prostate cancer 7 Verito Buck. [address], [address], [place], [place], [address], [place]. tel:[phone] Referring Provider: Valeria Ramires, [address] [facility] 300, [place], [address] . tel:[phone] [employer], [address], [place], [place], [address] , [place] tel: [phone] [place] Type 2 diabetes mellitus with peripheral neuropathyTachyca rdiaElevated PSA 7 Verito Buck. [address], [address], [place], [place], [address], [place]. tel:[phone] Referring Provider: Valeria Ramires, [address] [place] [address] [address], [place], [address] . tel:[phone] [facility], [address], [place], [address] , [place] tel: [phone] [place] Type 2 diabetes mellitus with peripheral neuropathyHistory of prostate cancerOther [facility] health insurance with inadequate coverage of health expenses [facility]. [address], [address], [place], [place], [address], [place]. tel:[phone] Referring Provider: Valeria Ramires, [address] [place] [address] [address], [place], [address] . tel:[phone] [employer] [facility] [facility], [address], [place], [address] , [place] tel: [phone] [place] Encounter for immunizationType 2 diabetes mellitus with peripheral neuropathyHistory of prostate cancerEncounter for screening for malignant neoplasm of prostate [facility]. [address] [place] [address], [address], [place], [place], [address], [place]. tel:[phone] Referring Provider: Valeria Ramires, [address] [place] [address] [address], [place], [address] . tel:[phone] [facility], [address], [place], [address] , [place] tel: [phone] [place] Diabetes Mellitus, Adult Onset, UncontrolledProst ate cancerElevated prostate specific antigen (psa) Keyla Shaw. [address] [place] [address], [address], [place], [place], [address], [place]. tel:[phone] Referring Provider: Valeria Ramires, [address] [place] [address] [address], [place], [address] . tel:[phone] [facility], [address], [place], [place], [address] , [place] tel: [phone] [place] AnemiaDiabetes Mellitus, Adult Onset, UncontrolledOther and unspecified hyperlipidemiaObe sityPersonal history of malignant neoplasm of prostate 4 Shiela Bauer. [address], [address], [place], [place], [address], [place]. tel:[phone] [facility], [address], [place], [place], [address] , [place] tel: [phone] [place] Type II diabetes mellitusOther and unspecified hyperlipidemiaAne miaObesityPersona l history of malignant neoplasm of prostate 4 Keyla Shaw. [address], [address], [place], [place], [address], [place]. tel:[phone] Referring Provider: Valeria Ramires, [address] [place], [place] [address] [address], [place], [address] . tel:[phone] [facility], [address], [place], [address] , [place] tel: [phone] [facility] Prostate cancer 4 Ansley Berger. [address], [address], [address], . tel:[phone] Referring Provider: Valeria Ramires, [address] [place], [place] [address] [address], [place], [address] . tel:[phone] [facility], [address], [place], [address] , [place] tel: [phone] [facility] Prostate cancer 4 Ansley Berger. [address], [place], [place], [facility], . tel:[phone] Referring Provider: Valeria Ramires [facility] [address], [place], [address] . tel:[phone] [facility], [address], [place], [address] , [place] tel: [phone] [place] Diabetes Mellitus, Adult Onset, Uncontrolled 4 Shiela Bauer. [address], [address], [place], [address], [place]. tel:[phone] Referring Provider: Valeria Ramires, [address] [place] [address] [address], [place], [address] . tel:[phone] [employer] [facility] [facility], [address], [place], [place], [address] , tel: [phone] [place] Diabetes Mellitus, Adult Onset, UncontrolledOther and unspecified hyperlipidemiaPer haim history of malignant neoplasm of prostateAnemiaObe sityAbnormal GEE-or-rynzyaqrey ratio May-0 9-201 4 Keyla Shaw. [address], [address], [place], [place], [address], [place]. tel:[phone] Referring Provider: Valeria Ramires, [address] [place] [address] [address], [place], [address] . tel:[phone] [facility], [address], [place], [place], [address] , [place] tel: [phone] [facility] Malignant Neoplasm, Prostate Apr-3 0-201 4 [facility]. [address], [facility] [address], [place], [facility], . tel:[phone] Referring Provider: Valeria Ramires, [address] [place] [address] [address], [place], [address] . tel:[phone] [employer] [facility], [address], [place], [place], [address] , [place] tel: [phone] [facility] Malignant Neoplasm, Prostate Apr-1 6-201 4 [facility]. [address], [facility] [address], [place], [address], . [phone] Referring Provider: Valeria Ramires, [facility] [address], [place], [address] . tel:[phone] [employer] [facility], [address], [place], [place], [address] , tel: [phone] [place] Diabetes Mellitus Type 2, Uncomplicated Apr-1 1-201 4 Baylee Radford. [address] [place] [address], [facility] [address], [place], [place], [address], [place]. tel:[phone] [facility], [address], [place], [address] , [place] tel: [phone] [place] Loss of appetiteDiabetes Mellitus, Adult Onset, UncontrolledOther and unspecified hyperlipidemiaHis tory of prostate cancer 4 Baylee Radford. [address], [address], [place], [place], [address], [place]. tel:[phone] Referring Provider: Valeria Ramires, [address] [place] [address] [address], [place], [address] . tel:[phone] [facility], [address], [place], [place], [address] , [place] tel: [phone] [place] Diabetes Mellitus, Adult Onset, UncontrolledOther and unspecified hyperlipidemiaObe sityMalignant Neoplasm, ProstateOther specified pre-operative examination 4 Keyla Shaw. [address] [place] [address], [address], [place], [place], [address], [place]. tel:[phone] Referring Provider: Valeria Ramires, [address] [place] [address] [address], [place], [address] . tel:[phone] [facility], [address], [place], [address] , [place] tel: [phone] [facility] Prostate cancer 4 Ansley Berger. [address], [place], [address], [place]. tel:[phone] Referring Provider: Valeria Ramires, [address] [place] [address] [address], [place], [address] . tel:[phone] [facility], [address], [place], [address] , [place] tel: [phone] [facility] Prostate cancer 4 Ansley Berger. [address], [place], [address], [place]. tel:[phone] [facility], [address], [place], [place], [address] , tel: [phone] [facility] Elevated prostate specific antigen (psa) 4 [facility]. [address], [address], [place], [address], [place]. tel:[phone] Referring Provider: Valeria Ramires, [address] [place] [address] [address], [place], [address] . tel:[phone] [facility], [address], [place], [place], [address] , tel: [phone] [facility] Elevated prostate specific antigen (psa) 4 [facility]. [address], [address], [place], [address], [place]. tel:[phone] Referring Provider: Valeria Ramires, [address] [place] [address] [address], [place], [address] . tel:[phone] [facility], [address], [place], [place], [address] , tel: [phone] [place] Diabetes mellitus without mention of complication,Elev ated PSAOther and unspecified hyperlipidemiaObe sity 4 Keyla Shaw. [address] [place] [address], [facility] 300, [place], [address], [place]. tel:[phone] Referring Provider: Valeria Ramires, [address] [place] [address] [address], [place], [address] . tel:[phone] [facility], [address], [place], [place], [address] , [place] tel: [phone] [place] Diabetes Mellitus, Adult Onset, UncontrolledEleva piper prostate specific antigen (psa)Other and unspecified hyperlipidemia 4 Verito Buck. [address] [place] [address], [facility] [address], [place], [address], [place]. tel:[phone] Referring Provider: Valeria Ramires, [address] [place] [address] [address], [place], [address] . tel:[phone] [facility], [address], [place], [address] , [place] tel: [phone] [place] Diabetes mellitus without mention of complication,Hype rlipidemiaSpecial screening for malignant neoplasm of prosta Dec-0 9-201 3 [facility]. [address] [facility] 300, [place], [place], [address], . tel:[phone] Referring Provider: Valeria Ramires, [address] [facility] [address], [place], [address] . tel:[phone] [facility], [address], [place], [place], [address] , tel: [phone] [place] Cellulitis and abscess of buttock Dec-1 0-201 2 [facility]. [address] [address], [place], [place], [address], . tel:[phone] Referring Provider: Valeria Ramires, [facility] [address], [place], [address] . tel:[phone] [facility], [address], [place], [place], [address] , tel: [phone] [place] Cellulitis and abscess of buttock Dec-0 8-201 2 Jaclyn Mendoza. [address], [facility] 300, [place], [place], [address], . tel:[phone] Referring Provider: Valeria Ramires, [address] [place] [address], [place], [address] . tel:[phone] [facility], [address], [place], [place], [address] , tel: [phone] [place] Diabetes mellitus without mention of complication,Absc ess of cellulitis of buttockHyperlipid emiaElevated PSAAnemiaNEED FOR PROPHYLACTIC VACCINATION WITH COMBINED DIPHTHERIA-TETANU S-PERTUSSIS (DTP) (DTAP) VACCINENeed for prophylactic vaccination and inoculation against streptococcus pneumoniae [pneumococcus]Nee d for prophylactic vaccination and inoculation against viralhepatitisNEE D FOR PROPHYLACTIC VACCINATION AND INOCULATION, INFLUENZA Dec-0 6-201 2 [facility] Cielo. [address] [facility] 300, [place], [place], [address], [place]. tel:[phone] Referring Provider: Valeria Ramires, [address] [place] [address], [place], [address] . tel:[phone] [facility], [address], [place], [place], [address] , [place] tel: [phone] [place] Diabetes mellitus without mention of complication, type II or unspecified type, not stated as uncontrolledOther and unspecified hyperlipidemiaScr eening for malignant neoplasms of the prostateAbscess of cellulitis of buttockAbnormal laboratory test 2 [employer]ar[facility]ohan[facility] Cielo. [address] [place] [address], [place], [place], [address], [place]. tel:[phone] Referring Provider: Valeria Ramires, [address] [place] [address], [place], [address] . tel:[phone] [facility], [address], [place], [place], [address] , [place] tel: [phone] [place] SPECIAL SCREENING FOR MALIGNANT NEOPLASMS, OTHER SITES 2 Sewing Joan. [address] [place] [address], [place], [address], [place]. tel:[phone] [facility], [address], [place], [address] , [place] tel: [phone] [place] No Information 1 Keyla Shaw. [address] [place] [address], [place], [address], [place]. tel:[phone] [facility], [address], [place], [address] , [place] tel: [phone] [place] HYPERLIPIDEMIA NEC/NOS 1 Willian Atwood. [address], [address] [place] [address], [place], [place], [address]. tel:[phone] [facility], [address], [place], [address] , [place] tel: [phone] [place] DMII WO CMP NT ST UNCNTR 1 Willian Atwood. [address], [address], [place], [place], [address]. tel:[phone] [facility], [address], [place], [address] , [place] tel: [phone] [place] BENIGN REINA SKIN EAR 1 Keyla Shaw. [address], [address], [place], [address], [place]. tel:[phone] Family History Family Member Type Diagnosis Age At Onset No Information Immunizations Vaccine Date Status Comments Pneumococcal conjugate PCV 13 administere d Source: New Immunization Record Flu (split) (3 yrs or older) administered Source: New Immunization Record Hep B (adult, 2 dose) administered Source : New Immunization Record Flulaval administered Note: [facility] 43992 -115-10 ; Source: New Immunization Record Tdap administered Note: [facility] 94313 -400-10 ; Source: New Immunization Record Pneumo (2 yrs or older) (PPV23) administered Note: [facility] [id number]- 01 ; Source: New Immunization Record Hep B (adult) administered Note: [facility] 0006 -4739-00 ; Source: New Immunization Record Payers Payer name Insurance type Covered republican ID Authoriza tion(s) MEDICARE [id number] MEDICARE [id number] Social History Type Description Quantity Date Captured [...]
--- OUTSIDE RECORDS SUMMARY | 2024-07-08 14:59 | XMS_ITS | Clinical Summary ---
Author Organization [facility] Address [address] [place] [address] Care Team Providers Care Director Of Assessment Name Role Phone Mary Wong RN Unavailable [phone] Elis Millan MD Unavailable [phone] Jovan Colindres MD Primary Care Provider [phone] Source Comments [facility],non-owned Affiliates and Associated Physician Practices is amultiple site organization consisting of ambulatory clinics and hospital sitesin [place], [place], [place] and [place]. This disclosure is being madepursuant to the Care Everywhere program and may not contain all information available regarding this patient. Last updated 18.[facility] Allergies No known active allergies Medications * Be aware that medications may not be up to date on this document. Alwaysverify current medications with the patient. Medication Sig Dispensed Refills Start Date End Date Status Insulin Aspart (NOVOLOG SC) Inject 30 Units subcutaneously once daily. Active Insulin Glargine (LANTUS SC) Inject 30 Units subcutaneously at bedtime. Active atorvastatin (LIPITOR) 10 MG tablet Take 10 mg by mouth at bedtime. Active aspirin 81 MG tablet Take 81 mg by mouth once daily. Active multivitamin daily (THERAGRAN) tablet Take 1 Tab by mouth daily with food. Active hydrocodone-acetam inophen (NORCO) 5-325 MG tablet Take 1-2 Tabs by mouth every 6 hours as needed for Pain. 30 Tab 0 07/08/2013 Active acetaminophen (TYLENOL) 325 MG tablet Take 2 Tabs by mouth every 4 hours as needed for Fever. Maximum allowable Acetaminophen amount = 4 Grams (4000 mg) / 24 hours. 07/21/2013 Active Active Problems Problem Noted Date Diagnosed Date Type II or unspecified type diabetes mellitus without mention of complication, uncontrolled 08/03/2013 Overview (08/03/2013): Dx around 2007 Prostate cancer 08/03/2013 Overview (08/03/2013): Surgery 07-07-13 Hyperlipidemia 08/03/2013 Groin pain 07/17/2013 Fever 07/17/2013 Immunizations Name Administration Dates Next Due INFLUENZA VACCINE 05/04/2013 PNEUMOCOCCAL PPSV23 07/08/2013 Family History Medical History Relation Name Comments Cancer Mother ovarian Relation Name Status Comments Brother Alive Father (Age 83) Mother (Age 75) Sister 1 Alive Sister 2 Alive Social History Tobacco Use Types Packs/Day Years Used Date Smoking Tobacco: Never Smokeless Tobacco: Never Alcohol Use Standard Drinks/Week Comments No 0 (1 standard drink = 0.6 oz pur e alcohol) Sex and Gender Information Value Date Recorded Sex Assigned at Not on file Gender Identity Not on file Sexual Orientation Not on file Last Filed Vital Signs Vital Sign Reading Time Taken Comments Blood Pressure 106/72 08/03/2013 1:41 PM CDT Pulse 87 07/21/2013 4:46 AM CDT Temperature 36.9 C (98.5 F) 07/21/2013 4:46 AM CDT Respiratory Rate 18 07/21/2013 4:46 AM CDT Oxygen Saturation 97% 07/21/2013 4:46 AM CDT Inhaled Oxygen Concentration - - Weight 108 kg (238 lb 3.2 oz) 08/03/2013 1:41 PM CDT Height 185.4 cm (6' 1 ) 08/03/2013 1:41 PM CDT Body Mass Index 31.43 08/03/2013 1:41 PM CDT Plan of Treatment Health Maintenance Due Date Last Done Comments COLOGUARD (AGES 45-75) - COL ON CA SCREENING 1950 COLON MONITORING 1950 COLONOSCOPY - COLON CA SCREENING 1950 CT COLONOGRAPHY - COLON CA SCREENING 1950 Colorectal Cancer Screening 1950 FIT - COLON CA SCREENING 1950 FLEX SIG - COLON CA SCREENING 1950 HEPATITIS C SCREENING 09/16/1968 DTAP/TDAP/TD VACCINES (1 - Tdap) 1969 ZOSTER VACCINE (1 of 2) 2000 Respiratory Syncytial Virus (RSV) Vaccine Pt: or over 60 yrs (1 - Risk 60-74 years 1-dose series) 2010 DIABETES RETINOPATHY SCREENING 08/03/2013 DIABETES-FOOT EXAM WITH MONOFILAMENT 08/03/2013 DIABETES-HGB A1C 01/28/2014 07/29/2013 PNEUMOCOCCAL VACCINE 50+ (2 of 2 - PCV) 07/08/2014 07/08/2013 DIABETES-SERUM CREATININE 07/29/20142013, 07/18/2013, 07/17/2013 COVID-19 VACCINE (1 - 2023-2 5 season) 2023 INFLUENZA VACCINE (#1) 2023 05/04/2013 DEPRESSION SCREENING 04/21/2024 DIABETES - URINE PROTEIN SCREENING 04/21/2024 MEDICARE AWV CALENDAR YEAR 2024 HEPATITIS B VACCINE Aged Out No longe r eligible based on patient's age to complete this topic HIB VACCINE Aged Out No longer eligi ble based on patient's age to complete this topic HPV VACCINE Aged Out No longer eligi ble based on patient's age to complete this topic MENINGOCOCCAL (Group B) VACCINE SHARED DECISION-MAKING Aged Out No longer eligible based on patient's age to complete this topic MENINGOCOCCAL GROUPS A/C/Y/W VACCINE Aged Out No longer eligible b ased on patient's age to complete this topic Medical Devices Implanted Type Area Annual Campaign Manager Device Identifier Shelf Expiration Date Model / Serial / Lot Floseal 10ml Implanted:Qty : 1 on 07/07/2013 by Ab Panchal MD at [facility] Collagen N/A: Abdomen 07/20/2015 [id number] / / [id number] Procedures Procedure Name Priority Date/Time Associated Diagnosis Comments CREATININE BLOOD (EXTERNAL RESULT ENTRY) Routine 07/29/2013 2:58 PM CDT HEMOGLOBIN A1C (EXTERNAL RESULT ENTRY) Routine 07/29/2013 2:58 PM CDT from Last 3 Months or Most Recently Relevant to Health Maintenance Results * (ABNORMAL) CREATININE BLOOD (EXTERNAL RESULT ENTRY) (07/29/2013 2:58 PM CDT) Creatinine (EXTERNAL RESULT) 1.98(H) mg/dl OTHER LAB Blood specimen (specimen) BLOOD SPECIMEN / Unknown 07/29/2013 2:58 PM CDT Narrative OTHER LAB - 07/29/2013 2:58 PM CDT The accuracy and reliability of the test results are authenticated by the outside CLIA certified lab, and not by the [facility] Funeral Assistant. The full result should be confirmed by review of the scanned report from the outside CLIA certified lab that performed the test before clinical decisions are rendered based on these results. Exercise caution when tracking results measured by different laboratories that have not been subject to cross validation studies. Valeria Ramires MD LAB - CHEMISTRY SHU HERCULES OTHER LAB * (ABNORMAL) HEMOGLOBIN A1C (EXTERNAL RESULT ENTRY) (07/29/2013 2:58 PM CDT) Hemoglobin A1c (EXTERNAL RESULT) 8.5(H) % OTHER LAB Blood specimen (specimen) BLOOD SPECIMEN / Unknown 07/29/2013 2:58 PM CDT Narrative OTHER LAB - 07/29/2013 2:58 PM CDT The accuracy and reliability of the test results are authenticated by the outside CLIA certified lab, and not by the [facility]eral Assistant. The full result should be confirmed by review of the scanned report from the outside CLIA certified lab that performed the test before clinical decisions are rendered based on these results. Exercise caution when tracking results measured by different laboratories that have not been subject to cross validation studies. Valeria Ramires MD LAB - CHEMISTRY SHU HERCULES OTHER LAB from Last 3 Months or Most Recently Relevant to Health Maintenance Advance Directives * Full Code (Latest Code Status on File) Date Activated Date Inactivated Comments 07/17/2013 5:15 PM 07/21/2013 2:52 PM * Full Code Date Activated Date Inactivated Comments 07/07/2013 8:45 AM 07/08/2013 2:26 PM Care Teams Director Of Assessment Relationship Specialty Start Date End Date Jovan Colindres MD [address], [address] [place] [address] PCP - General 01/03/22 Mary Wong, RN [employer] 07/19/13 Elis Millan MD [facility], [address] [place] [address] Endocrinology 08/03/13
[2024-07-08 15:23] LABS: Alanine Aminotransferase 14 U/L (6-50); Alkaline Phosphatase 88 U/L (38-126); Anion Gap 7 mmol/L (4-12); Aspartate Amino Transferase 18 U/L (17-59); Bilirubin,Total 0.3 mg/dL (0.2-1.3); Blood Urea Nitrogen 20 mg/dL (9-20); Calcium 9.6 mg/dL (8.4-10.2); Carbon Dioxide 31 mmol/L (22-30); Chloride 97 mmol/L (98-107); Cholesterol 193 mg/dL (0-200); Estimated Glomerular Filt Rate > 60; Glucose 424 mg/dL (65-110); HDL Direct 39 mg/dL; Potassium 4.3 mmol/L (3.4-5.0); Sodium 135 mmol/L (137-145); Triglycerides 172 mg/dL (<150)
[2024-07-08 15:34] LABS: LDL Cholesterol Direct 81 mg/dL
[2024-07-08 15:43] LABS: Hemoglobin A1C 12.6 % (<5.7)
[2024-07-08 16:37] LABS: Creatinine Urine 75.4 mg/dL
[2024-07-08 16:39] LABS: MALB Creatinine Ratio 201.2 mg/g (0-30); Microalbumin Urine Random 151.7 mg/L (0-16.7)
== END 2024-07-08 14:32 | disposition home or self-care (01) ==
LOC: ANHLAB 14:32
PROVIDERS: PCP Emergency Medicine; Visit Provider Emergency Medicine
DX: E78.5 Hyperlipidemia, unspecified (principal); E55.9 Vitamin D deficiency, unspecified; E11.9 Type 2 diabetes mellitus without complications
CPT/HCPCS: 36415; 80053; 80061; 82043; 82306; 83036

== ENCOUNTER 2024-09-08 07:55 | Outpatient (RCR) | payer MEDICARE, SELFPAY ==
[2024-09-08 08:00] VITALS: BMI 29.0
--- NOTE | 2024-09-27 10:30 | PCWOUND ---
WOCN NOTE Patient called and cancelled appointment for today. He is going to be followed by his vice president media relations for wound care.
== END 2024-11-22 10:00 | disposition home or self-care (01) ==
LOC: ANHWOC 07:55
PROVIDERS: PCP Emergency Medicine; Visit Provider Emergency Medicine
DX: L97.519 Non-pressure chronic ulcer of other part of right foot with unspecified severity (principal)
CPT/HCPCS: 99215; A9270; G0463

== ENCOUNTER 2024-09-10 10:59 | Outpatient (CLI) | payer MEDICARE, SELFPAY ==
--- OUTSIDE RECORDS SUMMARY | 2024-09-10 11:02 | XMS_ITS | Clinical Summary ---
Author Organization [facility] Address [address] [place] [address] Care Team Providers Care Merchandise Carrier Name Role Phone Mary Wong RN Unavailable [phone] Elis Millan MD Unavailable [phone] Jovan Colindres MD Primary Care Provider [phone] Source Comments [facility],non-owned Affiliates and Associated Physician Practices is amultiple site organization consisting of ambulatory clinics and hospital sitesin [place], [place], [place]. This disclosure is being madepursuant to the Care Everywhere program and may not contain all information available regarding this patient. Last updated 18.[facility] Allergies No known active allergies Medications * Be aware that medications may not be up to date on this document. Alwaysverify current medications with the patient. Insulin Aspart (NOVOLOG SC) Inject 30 Units subcutaneously once daily. Active Insulin Glargine (LANTUS SC) Inject 30 Units subcutaneously at bedtime. Active atorvastatin (LIPITOR) 10 MG tablet Take 10 mg by mouth at bedtime. Active aspirin 81 MG tablet Take 81 mg by mouth once daily. Active multivitamin daily (THERAGRAN) tablet Take 1 Tab by mouth daily with food. Active hydrocodone-ac etaminophen (NORCO) 5-325 MG tablet Take 1-2 Tabs by mouth every 6 hours as needed for Pain. 30 Tab 0 4 Active acetaminophen (TYLENOL) 325 MG tablet Take 2 Tabs by mouth every 4 hours as needed for Fever. Maximum allowable Acetaminophen amount = 4 Grams (4000 mg) / 24 hours. 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 Gender Identity Not on file Sexual Orientation [...] - Risk 60-74 years 1-dose series) 2010 DIABETES-FOOT EXAM WITH MONOFILAMENT 08/03/2013 DIABETES-HGB A1C 01/28/2014 07/29/2013 PNEUMOCOCCAL VACCINE 50+ (2 of 2 - PCV) 07/08/2014 07/08/2013 DIABETES-SERUM CREATININE 07/29/20142013, 07/18/2013, 07/17/2013 COVID-19 VACCINE (1 - 2023-2 5 season) 2023 DEPRESSION SCREENING 04/21/2024 DIABETES - URINE PROTEIN SCREENING 04/21/2024 INFLUENZA VACCINE (Season Ended) 2024 05/04/2013 HEPATITIS B VACCINE Aged Out No longe [...] this topic Medical Devices Implanted Type Area Hospice Care Transitions Coordinator Device Identifier Shelf Expiration Date Model / Serial / Lot Floseal 10ml Implanted:Qty : 1 on 07/07/2013 by Ab Panchal MD at [facility] Collagen N/A: Abdomen 07/20/2015 [id number] / / [id number] Procedures Procedure Name Priority Date/Time Associated Diagnosis [...] CLIA certified lab, and not by the [facility] Laboratory Coin Box Inspector. The full result should be confirmed by review of the scanned report from the outside CLIA certified lab that performed the test before clinical decisions are rendered based on these results. Exercise caution when tracking results measured by different laboratories that have not been subject to cross validation studies. Valeria Ramires MD LAB - CHEMISTRY ORDERABLES Fi nal Result Performing Organization Address City/[facility]/ZIP Co de Phone Number OTHER LAB * (ABNORMAL) HEMOGLOBIN A1C (EXTERNAL RESULT ENTRY) (07/29/2013 2:58 PM CDT) Hemoglobin A1c (EXTERNAL RESULT) 8.5(H) % OTHER LAB Blood specimen (specimen) BLOOD SPECIMEN / Unknown 07/29/2013 2:58 PM CDT Narrative OTHER LAB - 07/29/2013 2:58 PM CDT The accuracy and reliability of the test results are authenticated by the outside CLIA certified lab, and not by the [facility] Laboratory Coin Box Inspector. The full result should be confirmed by review of the scanned report from the outside CLIA certified lab that performed the test before clinical decisions are rendered based on these results. Exercise caution when tracking results measured by different laboratories that have not been subject to cross validation studies. Valeria Ramires MD LAB - CHEMISTRY ORDERABLES Fi nal Result OTHER LAB from Last 3 Months or Most Recently Relevant to Health Maintenance Insurance [facility] MANAGED MEDICARE ADV Advance Directives * Full Code (Latest Code Status on File) Date Activated Date Inactivated Comments 07/17/2013 5:15 PM 07/21/2013 2:52 PM * Full Code Date Activated Date Inactivated Comments 07/07/2013 8:45 AM 07/08/2013 2:26 PM Care Teams Merchandise Carrier Relationship Specialty Start Date End Date Jovan Colindres MD [address], [address] [place] [address] PCP - General 01/03/22 Mary Wong RN Consumer Insight Analyst 07/19/13 Elis Millan MD [address], [address] [place] [address] Endocrinology 08/03/13
--- OUTSIDE RECORDS SUMMARY | 2024-09-10 11:02 | XMS_ITS | Continuity of Care Document ---
Author Organization [employer] Address [address] [place] [address] Phone Care Team Providers Care Transmission Repairer Name Role Phone Valeria Ramires MD Unavailable [...] and evening meals 1000 MG - Active CormedicsTouch Delica Lancets 33 gauge to test twice [...] Diagnoses Date Provider Providers Copied on Encounter [employer], [address], [place], [place], [address] , [place] tel: [phone] [place] No Information 9 Apollolizbeth Valeria. [address], [place], [place], [address], [place]. tel:[phone] [employer], [address], [place], [place], [address] , [place] tel: [phone] [place] No Information 7 Verito Buck. [address], [place], [place], [address], [place]. tel:[phone] [employer], [address], [place], [place], [address] , [place] tel: [phone] [place] Anemia, unspecified type 7 Apollolizbeth Valeria. [address], [place], [place], [address], [place]. tel:[phone] [employer], [address], [place], [place], [address] , [place] tel: [phone] [place] Type 2 diabetes mellitus with peripheral neuropathyOther hyperlipidemiaTac hycardiaElevated PSAHistory of prostate cancer 7 Verito Buck. [address], [place], [place], [address], [place]. tel:[phone] Referring Provider: Valeria Ramires, [address], [place], [address] . tel:[phone] [employer] [facility]YA, [address], [place], [place], [address] , [place] tel: [phone] [place] Type 2 diabetes mellitus with peripheral neuropathyTachyca rdiaElevated PSA 7 Verito Buck. [address], [place], [place], [address], [place]. tel:[phone] Referring Provider: Valeria Ramires, [address] [place] [address] [address], [place], [address] . tel:[phone] [facility], [address], [place], [place], [address] , [place] tel: [phone] [place] Type 2 diabetes mellitus with peripheral neuropathyHistory of prostate cancerOther [facility] health insurance with inadequate coverage of health expenses [facility]. [address], [place], [place], [address], [place]. tel:[phone] Referring Provider: Valeria Ramires, [address] [place] [address] [address], [place], [address] . tel:[phone] [facility], [address], [place], [place], [address] , [place] tel: [phone] [place] Encounter for immunizationType 2 diabetes mellitus with peripheral neuropathyHistory of prostate cancerEncounter for screening for malignant neoplasm of prostate [facility]. [address] [place] [address], [address], [place], [place], [address], [place]. tel:[phone] Referring Provider: Valeria Ramires, [address] [place] [address] [address], [place], [address] . tel:[phone] [facility], [address], [place], [place], [address] , [place] tel: [phone] [place] Diabetes Mellitus, Adult Onset, UncontrolledProst ate cancerElevated prostate specific antigen (psa) Keyla Shaw. [address] [place] [address], [address], [place], [place], [address], [place]. tel:[phone] Referring Provider: Valeria Ramires, [address] [place] [address] [address], [place], [address] . tel:[phone] [facility], [address], [place], [place], [address] , [place] tel: [phone] [place] AnemiaDiabetes Mellitus, Adult Onset, UncontrolledOther and unspecified hyperlipidemiaObe sityPersonal history of malignant neoplasm of prostate 4 Shiela Bauer. [address], [address], [place], [place], [address], [place]. tel:[phone] [employer], [address], [place], [place], [address] , [place] tel: [phone] [place] Type II diabetes mellitusOther and unspecified hyperlipidemiaAne miaObesityPersona l history of malignant neoplasm of prostate 4 Keyla Shaw. [address], [address], [place], [place], [address], [place]. tel:[phone] Referring Provider: Valeria Ramires, [facility] [address], [place], [address] . tel:[phone] [employer], [address], [place], [place], [address] , [place] tel: [phone] [facility] [place] Prostate cancer 4 Ansley Berger. [address], [place], [address], . tel:[phone] Referring Provider: Valeria Ramires, [facility] [address], [place], [address] . tel:[phone] [employer], [address], [place], [place], [address] , [place] tel: [phone] [facility] [place] Prostate cancer 4 Ansley Berger. [address], [address], [place], [place], [facility], . tel:[phone] Referring Provider: Valeria Ramires [facility] [address], [place], [address] . tel:[phone] [employer], [address], [place], [place], [address] , tel: [phone] [place] Diabetes Mellitus, Adult Onset, Uncontrolled 4 Shiela Bauer. [address], [place], [place], [address], [place]. tel:[phone] Referring Provider: Valeria Ramires, [address] [place] [address] [address], [place], [address] . tel:[phone] [facility], [address], [place], [place], [address] , tel: [phone] [place] Diabetes Mellitus, Adult Onset, UncontrolledOther and unspecified hyperlipidemiaPer haim history of malignant neoplasm of prostateAnemiaObe sityAbnormal RXR-xu-qqxgbfysao ratio May-0 9-201 4 Keyla Shaw. [address], [place], [place], [address], [place]. tel:[phone] Referring Provider: Valeria Ramires, [address] [place] [address] [address], [place], [address] . tel:[phone] [employer], [address], [place], [place], [address] , tel: [phone] [facility] [place] Malignant Neoplasm, Prostate Apr-3 0-201 4 [facility]. [address] [facility] [address], [place], [facility], . tel:[phone] Referring Provider: Valeria Ramires, [address] [place] [address] [address], [place], [address] . tel:[phone] [facility], [address], [place], [place], [address] , [place] tel: [phone] [facility] [place] Malignant Neoplasm, Prostate Apr-1 6-201 4 [facility]. [address], [place], [address], . tel:[phone] Referring Provider: Valeria Ramires, [facility] [address], [place], [address] . tel:[phone] [facility], [address], [place], [place], [address] , tel: [phone] [place] Diabetes Mellitus Type 2, Uncomplicated Apr-1 1-201 4 Baylee Radford. [facility] [address], [place], [place], [address], [place]. tel:[phone] [employer] [facility], [address], [place], [place], [address] , [place] tel: [phone] [place] Loss of appetiteDiabetes Mellitus, Adult Onset, UncontrolledOther and unspecified hyperlipidemiaHis tory of prostate cancer 4 Baylee Radford. [address], [address], [place], [place], [address], [place]. tel:[phone] Referring Provider: Valeria Ramires, [address] [place] [address] [address], [place], [address] . tel:[phone] [employer], [address], [place], [place], [address] , [place] tel: [phone] [place] Diabetes Mellitus, Adult Onset, UncontrolledOther and unspecified hyperlipidemiaObe sityMalignant Neoplasm, ProstateOther specified pre-operative examination 4 Keyla Shaw. [address] [place] [address], [address], [place], [place], [address], [place]. tel:[phone] Referring Provider: Valeria Ramires, [address] [place] [address] [address], [place], [address] . tel:[phone] [employer], [address], [place], [place], [address] , [place] tel: [phone] [facility] [place] Prostate cancer 4 [facility]. [address], [place], [address], [place]. tel:[phone] Referring Provider: Valeria Ramires, [address] [place] [address] [address], [place], [address] . tel:[phone] [employer], [address], [place], [place], [address] , [place] tel: [phone] [facility] Prostate cancer 4 Ansley Berger. [address], [place], [address], [place]. tel:[phone] [employer], [address], [place], [place], [address] , tel: [phone] [facility] [place] Elevated prostate specific antigen (psa) 4 [facility]. [address], [place], [address], [place]. tel:[phone] Referring Provider: Valeria Ramires, [address] [place] [address] [address], [place], [address] . tel:[phone] [facility], [address], [place], [place], [address] , tel: [phone] [facility] [place] Elevated prostate specific antigen (psa) 4 [facility]. [address], [address], [place], [address], [place]. tel:[phone] Referring Provider: Valeria Ramires, [address] [place] [address] [address], [place], [address] . tel:[phone] [facility], [address], [place], [place], [address] , [place] tel: [phone] [place] Diabetes mellitus without mention of complication,Elev ated PSAOther and unspecified hyperlipidemiaObe sity 4 Keyla Shaw. [address] [place] [address], [facility] [address], [place], [place], [address], [place]. tel:[phone] Referring Provider: Valeria Ramires, [address] [place] [address] [address], [place], [address] . tel:[phone] [facility], [address], [place], [place], [address] , [place] tel: [phone] [place] Diabetes Mellitus, Adult Onset, UncontrolledEleva piper prostate specific antigen (psa)Other and unspecified hyperlipidemia 4 Verito Buck. [address] [place] [address], [facility] [address], [place], [place], [address], [place]. tel:[phone] Referring Provider: Valeria Ramires, [address] [place] [address] [address], [place], [address] . tel:[phone] [facility], [address], [place], [place], [address] , [place] tel: [phone] [place] Diabetes mellitus without mention of complication,Hype rlipidemiaSpecial screening for malignant neoplasm of prosta Dec-0 9-201 3 [facility] Cielo. [address] [facility] [address], [place], [place], [address], . tel:[phone] Referring Provider: Valeria Ramires, [address] [facility] [address], [place], [address] . [phone] [facility], [address], [place], [place], [address] , tel: [phone] [place] Cellulitis and abscess of buttock Dec-1 0-201 2 [facility]. [address] [address], [place], [place], [address], . tel:[phone] Referring Provider: Valeria Ramires, [address] [address], [place], [address] . [phone] [facility], [address], [place], [place], [address] , tel: [phone] [place] Cellulitis and abscess of buttock Dec-0 8-201 2 Jaclyn Mendoza. [address] [address], [place], [place], [address], . [phone] Referring Provider: Valeria Ramires, [address] [place] [address], [place], [address] . tel:[phone] [facility], [address], [place], [place], [address] , tel: [phone] [place] Diabetes mellitus without mention of complication,Absc ess of cellulitis of buttockHyperlipid emiaElevated PSAAnemiaNEED FOR PROPHYLACTIC VACCINATION WITH COMBINED DIPHTHERIA-TETANU S-PERTUSSIS (DTP) (DTAP) VACCINENeed for prophylactic vaccination and inoculation against streptococcus pneumoniae [pneumococcus]Nee d for prophylactic vaccination and inoculation against viralhepatitisNEE D FOR PROPHYLACTIC VACCINATION AND INOCULATION, INFLUENZA Dec-0 6-201 2 [facility]. [address] [facility] [address], [place], [place], [address], [place]. tel:[phone] Referring Provider: Valeria Ramires, [address] [place] [address], [place], [address] . tel:[phone] [facility], [address], [place], [place], [address] , [place] tel: [phone] [place] Diabetes mellitus without mention of complication, type II or unspecified type, not stated as uncontrolledOther and unspecified hyperlipidemiaScr eening for malignant neoplasms of the prostateAbscess of cellulitis of buttockAbnormal laboratory test 2 Basarabejohanau Cielo. [address] [place] [address] [address], [place], [place], [address], [place]. tel:[phone] Referring Provider: Valeria Ramires, [address] [place] [address], [place], [address] . tel:[phone] [facility], [address], [place], [place], [address] , [place] tel: [phone] [place] SPECIAL SCREENING FOR MALIGNANT NEOPLASMS, OTHER SITES 2 Sewing Joan. [address] [place] [address], [place], [place], [address], [place]. [phone] [facility], [address], [place], [place], [address] , [place] tel: [phone] [place] No Information 1 Keyla Shaw. [address] [place] [address], [address] [address], [place], [place], [address], [place]. [phone] [facility], [address], [place], [place], [address] , [place] tel: [phone] [place] HYPERLIPIDEMIA NEC/NOS 1 Willian Atwood. [address] [place] [address], [facility] [address], [place], [place], [address]. tel:[phone] [facility], [address], [place], [place], [address] , [place] tel: [phone] [place] DMII WO CMP NT ST UNCNTR 1 Willian Atwood. [address], [place], [place], [address]. tel:[phone] [facility], [address], [place], [place], [address] , [place] tel: [phone] [place] BENIGN REINA SKIN EAR 1 Keyla Shaw. [address], [place], [place], [address], [place]. tel:[phone] Family History Family Member Type Diagnosis Age At Onset No Information Immunizations Vaccine Date Status Comments Pneumococcal conjugate PCV 13 administere d Source: New Immunization Record Flu (split) (3 yrs or older) administered Source: New Immunization Record Hep B (adult, 2 dose) administered Source : New Immunization Record Flulaval administered Note: [facility] 37809 -115-10 ; Source: New Immunization Record Tdap administered Note: [facility] 35656 -400-10 ; Source: New Immunization Record Pneumo (2 yrs or older) (PPV23) administered Note: [facility] 9857-1222- 01 ; Source: New Immunization Record Hep B (adult) administered Note: [facility] 0006 -4739-00 ; Source: New Immunization Record Payers Payer name Insurance type Covered republican ID Authoriza tion(s) MEDICARE [id number] MEDICARE [id number] Social History Type Description Quantity Date Captured [...]
--- OUTSIDE RECORDS SUMMARY | 2024-09-10 11:03 | XMS_ITS | Data Portability ---
Author Organization [facility] [employer], Main Office Address [address] [place] [address] Assessment No assessment recorded. Plan of Treatment Reminders Order Date Submit Date Provider Last Modified By Organization Details Last Modified Time Details Appointments None record ed. Lab None record ed. Referral None record ed. Procedures None record ed. Surgeries None record ed. Imaging None record ed. Medication Orders None record ed. Patient TargetsNo targets recorded. Patient InstructionsNo instructions recorded. Reason for Referral None Reported. Results Created Date Observation Date Name Description Value Unit Range Abnormal Flag Note LastModifiedBy Organization Detail LastModifiedTime 03/28/20 22 03/28/2022 COLOG UARD cologuard result cancel led - provid er reques t not applic able Not Available [facility] (Cologuard Orders Only) [address], [place], [address], 03/28/2022 16:57:33 08/21/19 22 08/20/2021 HEMOG LOBIN A1C HA1C 9.1 % 4.0-6. 0 high Diabe ricky Scree sesar Crite irineo: <5.7% Consi stent with absen ce of diabe ricky 5.7-6 .4% Consi stent with incre ased risk for diabe ricky (pred iabet es) >OR=6 .5% Consi stent with diabe ricky REFER ENCE: Diabe ricky Care 2016, 39(Chen ppl.1 ):s13 -s22 Not Available [facility] (Lab) [address] [place], [address], 08/20/2021 20:44:13 08/21/19 22 08/20/2021 PSA SCREE N PSA medicare screen 131.00 NG/mL 0.00-4 .00 high Not Available [facility] (Lab) [address] [place], [address], 08/20/2021 19:12:16 08/21/19 22 08/20/2021 VITAM IN D 25-HY DROXY [id number] 31.0 NG/mL 30-100 Vitam in D Statu s: Defic ient: <20 ng/mL Insuf ficie nt: 20-29 ng/mL Suffi cient : 30-10 0 ng/mL Not Available [facility] (Lab) [address] [place], [address], 08/20/2021 18:02:52 08/21/19 22 08/20/2021 COMPR EHENS KADIE METAB OLIC PANEL sodium 138 mmol/ L 137-14 5 Not Available [facility] (Lab) [address] [place], [address], 08/20/2021 17:50:44 08/21/19 22 08/20/2021 COMPR EHENS KADIE METAB OLIC PANEL potassium 4.5 mmol/ L 3.5-5. 1 Not Available [facility] (Lab) [address] [place], [address], 08/20/2021 17:50:44 08/21/19 22 08/20/2021 COMPR EHENS KADIE METAB OLIC PANEL chloride 104 mmol/ L 98-107 Not Available [facility] (Lab) [address] [place], [address], 08/20/2021 17:50:44 08/21/19 22 08/20/2021 COMPR EHENS KADIE METAB OLIC PANEL carbon dioxide 27 mmol/ L 22-30 Not Available [facility] (Lab) [address] [place], [address], 08/20/2021 17:50:44 08/21/19 22 08/20/2021 COMPR EHENS KADIE METAB OLIC PANEL anion gap 11.5 mmol/ L 14-22 low Not Available [facility] (Lab) [address] [place], [address], 08/20/2021 17:50:44 08/21/19 22 08/20/2021 COMPR EHENS KADIE METAB OLIC PANEL glucose 122 mg/dL 70-99 high Not Available [facility] (Lab) [address] [place], [address], 08/20/2021 17:50:44 08/21/19 22 08/20/2021 COMPR EHENS KADIE METAB OLIC PANEL BUN 24 mg/dL 8-19 high Not Available [facility] (Lab) [address] [place], [address], 08/20/2021 17:50:44 08/21/19 22 08/20/2021 COMPR EHENS KADIE METAB OLIC PANEL creatinine 0.95 mg/dL 0.66-1 .25 Not Available [facility] (Lab) [address] [place], [address], 08/20/2021 17:50:44 08/21/19 22 08/20/2021 COMPR EHENS KADIE METAB OLIC PANEL GFR >60 Refer ence Range : Webster ge GFR Healt hy Adult : >60 mL/mi n/1.7 3 m2 Chron ic Kidne y Disea se: 15-60 mL/mi n/1.7 3 m2 Kidne y Failu re: <15/m L/min /1.73 m2 www.n iddk. nih.g ov The MDRD study equat ion has not been valid ated in child terry <18 years of age; pregn ant women ; the elder ly >85 years of age; or in some racia l or ethni c subgr oups, such as Hispa nics. Outsi de the valid ated shayne eters , estim ated GFR is less accur ate, requi ring clini juliana judgm ent on a case- by-ca se basis . Clini juliana inter preta tion for other races and ages must be made by the clini yuridia. The MDRD study equat ion has not been valid ated for the evalu ation of serum creat inine relat ed to nutri hai l statu s or medic ation usage . For perso ns <18 years of age, a pedia tric GFR calcu lator is avail able on the [facility] websi te: https ://ww w.kid janice.o rg/pr ofess ional s/kdo qi/gf r_cal culat or Not Available [facility] (Lab) [address] [place], [address], 08/20/2021 17:50:44 08/21/19 22 08/20/2021 COMPR EHENS KADIE METAB OLIC PANEL alkaline phosphatase 62 U/L 38-126 Not Available [facility] (Lab) [address] [place], [address], 08/20/2021 17:50:44 08/21/19 22 08/20/2021 COMPR EHENS KADIE METAB OLIC PANEL alanine aminotransfe rase 19 U/L 0-50 Not Available [facility] (Lab) [address] [place], [address], 08/20/2021 17:50:44 08/21/19 22 08/20/2021 COMPR EHENS KADIE METAB OLIC PANEL aspartate aminotransfe rase 22 U/L 15-46 Not Available [facility] (Lab) [address] [place], [address], 08/20/2021 17:50:44 08/21/19 22 08/20/2021 COMPR EHENS KADIE METAB OLIC PANEL bilirubin, total 0.40 mg/dL 0.20-1 .30 Not Available [facility] (Lab) [address] [place], [address], 08/20/2021 17:50:44 08/21/19 22 08/20/2021 COMPR EHENS KADIE METAB OLIC PANEL calcium 9.7 mg/dL 8.4-10 .2 Not Available [facility] (Lab) [address] [place], [address], 08/20/2021 17:50:44 08/21/19 22 08/20/2021 COMPR EHENS KADIE METAB OLIC PANEL total protein 7.6 g/dL 6.3-8. 2 Not Available [facility] (Lab) [address] [place], [address], 08/20/2021 17:50:44 08/21/19 22 08/20/2021 COMPR EHENS KADIE METAB OLIC PANEL albumin 3.9 g/dL 3.0-4. 4 Not Available [facility] (Lab) [address] [place], [address], 08/20/2021 17:50:44 08/21/19 22 08/20/2021 COMPR EHENS KADIE METAB OLIC PANEL globulin 3.7 g/dL 2.6-4. 2 Not Available [facility] (Lab) [address] [place], [address], 08/20/2021 17:50:44 08/21/19 22 08/20/2021 COMPR EHENS KADIE METAB OLIC PANEL A/G ratio 1.1 ratio 1.0-2. 0 Not Available [facility] (Lab) [address] [place], [address], 08/20/2021 17:50:44 08/21/19 22 08/20/2021 LIPID PANEL cholesterol 201 mg/dL 140-19 9 high NIH FLORENCIA NSUS RECOM MENDA TION FOR LILLIE STERO L: ADULT CHILD LOW RISK: <200 <170 BORDE RLINE : <200- 239 ----- HIGH RISK: >240 >200 Not Available [facility] (Lab) [address] [place], [address], 08/20/2021 17:50:38 08/21/19 22 08/20/2021 LIPID PANEL triglyceride s 112 mg/dL 0-150 NIH FLORENCIA NSUS REPOR T RECOM MENDA TION FOR TRIGL YCERI LETTY: ADULT CHILD LOW RISK: <150 ----- BODER LINE: 150-1 99 ----- HIGH RISK: >200 ----- Not Available [facility] (Lab) [address] [place], [address], 08/20/2021 17:50:38 08/21/19 22 08/20/2021 LIPID PANEL HDL cholesterol 45 mg/dL 40- Not Available [facility] (Lab) [address] [place], [address], 08/20/2021 17:50:38 08/21/19 22 08/20/2021 LIPID PANEL LDL cholesterol, calculated 134 mg/dL 0-130 high NIH FLORENCIA NSUS REPOR T RECOM MENDA TIONS FOR LDL: ADULT CHILD LOW RISK <130 <110 (OPTI MAL LDL) <100 ----- BORDE RLINE : 130-1 59 ----- HIGH RISK: >160 >130 A TRIGL YCERI DE RESUL T >400 INVAL IDATE S THE CALCU LATIO N FOR LDL FRACT IONAT ION - THE LDL RESUL T WILL NOT BE REPOR TABBY. Not Available [facility] (Lab) [address] [place], [address], 08/20/2021 17:50:38 08/21/19 22 08/20/2021 CBC/C OMPLE TE BLD COUNT W/DIF F white blood cells 6.0 x10'3 /uL 4.2-10 .8 Not Available [facility] (Lab) [address] [place], [address], 08/20/2021 17:42:06 08/21/19 22 08/20/2021 CBC/C OMPLE TE BLD COUNT W/DIF F red blood cells 4.67 x10'6 /uL 4.10-5 .80 Not Available [facility] (Lab) [address] [place], [address], 08/20/2021 17:42:06 08/21/19 22 08/20/2021 CBC/C OMPLE TE BLD COUNT W/DIF F hemoglobin 12.3 g/dL 13.2-1 7.0 low Not Available [facility] (Lab) [address] [place], [address], 08/20/2021 17:42:06 08/21/19 22 08/20/2021 CBC/C OMPLE TE BLD COUNT W/DIF F hematocrit 38.5 % 39.3-5 0.0 low Not Available [facility] (Lab) [address] [place], [address], 08/20/2021 17:42:06 08/21/19 22 08/20/2021 CBC/C OMPLE TE BLD COUNT W/DIF F mean red cell volume 82.4 fL 80.0-9 7.0 Not Available [facility] (Lab) [address] [place], [address], 08/20/2021 17:42:06 08/21/19 22 08/20/2021 CBC/C OMPLE TE BLD COUNT W/DIF F mean red cell hemoglobin 26.3 pg 27.0-3 3.0 low Not Available [facility] (Lab) [address] [place], [address], 08/20/2021 17:42:06 08/21/19 22 08/20/2021 CBC/C OMPLE TE BLD COUNT W/DIF F mean RBC HGB concentratio n 31.9 g/dL 31.0-3 6.0 Not Available [facility] (Lab) [address] [place], [address], 08/20/2021 17:42:06 08/21/19 22 08/20/2021 CBC/C OMPLE TE BLD COUNT W/DIF F red cell distribution width 14.6 % 11.8-1 5.5 Not Available [facility] (Lab) [address] [place], [address], 08/20/2021 17:42:06 08/21/19 22 08/20/2021 CBC/C OMPLE TE BLD COUNT W/DIF F platelets 272 x10'3 /uL 150-40 0 Not Available [facility] (Lab) [address] [place], [address], 08/20/2021 17:42:06 08/21/19 22 08/20/2021 CBC/C OMPLE TE BLD COUNT W/DIF F mean platelet volume 10.6 fL 9.0-12 .4 Not Available [facility] (Lab) [address] [place], [address], 08/20/2021 17:42:06 08/21/19 22 08/20/2021 CBC/C OMPLE TE BLD COUNT W/DIF F neutrophils 44.5 % 39.0-7 2.0 Not Available [facility] (Lab) [address] [place], [address], 08/20/2021 17:42:06 08/21/19 22 08/20/2021 CBC/C OMPLE TE BLD COUNT W/DIF F lymphocytes 40.2 % 16.0-4 7.0 Not Available [facility] (Lab) [address] [place], [address], 08/20/2021 17:42:06 08/21/19 22 08/20/2021 CBC/C OMPLE TE BLD COUNT W/DIF F monocytes 10.5 % 5.0-12 .0 Not Available [facility] (Lab) [address] [place], [address], 08/20/2021 17:42:06 08/21/19 22 08/20/2021 CBC/C OMPLE TE BLD COUNT W/DIF F eosinophils 3.8 % 1.0-7. 0 Not Available [facility] (Lab) [address] [place], [address], 08/20/2021 17:42:06 08/21/19 22 08/20/2021 CBC/C OMPLE TE BLD COUNT W/DIF F basophils 0.5 % 0.0-2. 0 Not Available [facility] (Lab) [address] [place], [address], 08/20/2021 17:42:06 08/21/19 22 08/20/2021 CBC/C OMPLE TE BLD COUNT W/DIF F immature granulocytes 0.5 % 0.00-0 .50 Not Available [facility] (Lab) [address] [place], [address], 08/20/2021 17:42:06 08/21/19 22 08/20/2021 CBC/C OMPLE TE BLD COUNT W/DIF F neutrophils, absolute count 2.66 x10'3 /uL 1.5-8. 0 Not Available [facility] (Lab) [address] [place], [address], 08/20/2021 17:42:06 08/21/19 22 08/20/2021 CBC/C OMPLE TE BLD COUNT W/DIF F lymphocytes, absolute count 2.41 x10'3 /uL 1.07-3 .43 Not Available [facility] (Lab) [address] [place], [address], 08/20/2021 17:42:06 08/21/19 22 08/20/2021 CBC/C OMPLE TE BLD COUNT W/DIF F monocytes, absolute count 0.63 x10'3 /uL 0.29-0 .99 Not Available [facility] (Lab) [address] [place], [address], 08/20/2021 17:42:06 08/21/19 22 08/20/2021 CBC/C OMPLE TE BLD COUNT W/DIF F eosinophils, absolute count 0.23 x10'3 /uL 0.02-0 .53 Not Available [facility] (Lab) [address] [place], [address], 08/20/2021 17:42:06 08/21/19 22 08/20/2021 CBC/C OMPLE TE BLD COUNT W/DIF F basophils, absolute count 0.03 x10'3 /uL 0.01-0 .08 Not Available [facility] (Lab) [address] [place], [address], 08/20/2021 17:42:06 08/21/19 22 08/20/2021 CBC/C OMPLE TE BLD COUNT W/DIF F immature granulocytes ,absolute 0.03 x10'3 /uL 0.00-0 .05 Not Available [facility] (Lab) [address] [place], [address], 08/20/2021 17:42:06 08/21/19 22 08/20/2021 CBC/C OMPLE TE BLD COUNT W/DIF F nucleated red blood cells 0.0 % -0 Not Available [facility] (Lab) [address] [place], [address], 08/20/2021 17:42:06 08/21/19 22 08/20/2021 CBC/C OMPLE TE BLD COUNT W/DIF F NRBC# 0.00 x10'3 /uL Not Available [facility] (Lab) [address] [place], [address], 08/20/2021 17:42:06 11/04/19 22 11/03/2021 CT, abdom en + pelvi s, w/ contr ast No observ ation record ed. [id number], [place], [address], 06/19/2022 04:52:09 11/04/19 22 11/03/2021 XR, chest No observ ation record ed. [id number] [place] [address] [address], [place], [address], 06/19/2022 04:52:09 11/05/19 22 11/04/2021 US, abdom en, limit ed No observ ation record ed. [id number] [place] [address] [address] [facility], [place], [address], 06/19/2022 04:52:09 11/06/19 22 11/03/2021 CT, abdom en + pelvi s, w/o contr ast No observ ation record ed. [email or web address].[id number] [place] [address] [facility] [place], [address], 06/19/2022 04:52:09 11/08/19 22 11/07/2021 US, abdom en, limit ed No observ ation record ed. [id number] [place] [address] [address] [facility], [place], [address], 06/19/2022 04:52:09 11/08/19 22 11/07/2021 CT, abdom en + pelvi s, w/o contr ast No observ ation record ed. [email or web address].[id number] [place] [address] [address] [facility], [place], [address], 06/19/2022 04:52:09 11/08/19 22 11/07/2021 CT, abdom en + pelvi s, w/o contr ast No observ ation record ed. [email or web address].[id number] [place] [address] [address], [place], [address], 06/19/2022 04:52:09 12/22/19 22 12/21/2021 XR, chola ngiog maribell No observ ation record ed. [email or web address].[id number] [place] [address] [address], [place], [address], 06/19/2022 04:52:09 01/01/20 22 12/31/2021 XR, chola ngiog maribell No observ ation record ed. [id number], [place], [address], 06/19/2022 04:52:09 Result Notes None recorded. Problems Name Problem SNOMED Code Status Onset Date Resolution Date Notes Provider Name and Address Organization Details Recorded Time Type 2 diabetes mellitus without complication 301084192 Active 2021 Not Available [facility] 3 04:45:01 Neuropathy 013059811 Active 2021 Not Available [facility] 3 04:45:01 Prostate specific antigen above reference range 677811792 Active 2021 Not Available [facility] 3 04:45:01 Type 2 diabetes mellitus 84394385 Active 2021 Not Available [facility] 3 04:45:01 Uncontrolled type 2 diabetes mellitus 522288370 Active 2022 Not Available [facility] 3 04:45:01 Hyperlipidemi a 63457342 Active 2017 Not Available [facility] 3 04:45:01 Diabetes mellitus 13053164 Active 2017 Not Available [facility] 3 04:45:01 Hyperglycemia 98361381 Active 2022 Not Available [facility] 3 04:45:01 Problem Notes None recorded. Procedures Surgical History Date Name Laterality Status Provider Name and Address Organization Details Recorded Time Prostatectomy completed Not Available [facility] 06/19/2022 04:40:56 Cholecystectomy completed Not Available [facility] 06/19/2022 04:40:56 Imaging Results Imaging Date Name Status LastModified by Organization Details LastModified Time 12/31/2021 XR, cholangiogram completed MIGRATION. [id number] [address] [place] [address], [address], 06/19/2022 04:52:09 12/21/2021 XR, cholangiogram completed MIGRATION. [id number] [address] [place] [address], [address], 06/19/2022 04:52:09 11/03/2021 CT, abdomen + pelvis, w/ contrast completed [id number] [address], [place], [address], 06/19/2022 04:52:09 11/07/2021 US, abdomen, limited completed [id number] [address], [place], [address], 06/19/2022 04:52:09 11/03/2021 CT, abdomen + pelvis, w/o contrast completed [id number] [address] [place] [address] [address], [place], [address], 06/19/2022 04:52:09 11/07/2021 CT, abdomen + pelvis, w/o contrast completed [email or web address].[id number] [address], [place], [address], 06/19/2022 04:52:09 11/03/2021 XR, chest completed [email or web address].[id number], [place], [address], 06/19/2022 04:52:09 11/04/2021 US, abdomen, limited completed [email or web address].[id number] [address], [place], [address], 06/19/2022 04:52:09 11/07/2021 CT, abdomen + pelvis, w/o contrast completed [id number] [address] [place] [address] [address], [place], [address], 06/19/2022 04:52:09 Procedure Notes None recorded. Medical Equipment None Reported. Medications Name Sig Start Date Stop Date Status Note LastModified by Organization Details LastModified Time atorvasta tin 40 mg tablet Take 1 tablet every day by oral route. 04/28 completed Not Available Not Available Not Available metformin 500 mg tablet 08/18 completed Not Available Not Available Not Available atorvasta tin 20 mg tablet TAKE 1 TABLET BY MOUTH DAILY active Not Available Not Available No t Available hydrocodo ne 5 mg-acetam inophen 325 mg tablet TAKE 1 TABLET BY MOUTH EVERY 6 HOURS NEEDED FOR PAIN 02/13 completed Not Available Not Available Not Available Lantus U-100 Insulin 100 unit/mL subcutane ous solution 04/23 completed Not Available Not Available Not Available insulin syringe U-100 with needle 1 mL 29 gauge x 7/16 INJECT UNDER THE SKIN 1 TO2 TIMES PER DAYS 08/18 completed Not Available Not Available Not Available sulfameth oxazole 800 mg-trimet hoprim 160 mg tablet 02/13 completed Not Available Not Available Not Available amoxicill in 500 mg tablet Take 1 tablet 3 times a day by oral route for 7 days. 04/28 completed Not Available Not Available Not Available OneTouch Ultra Test strips USE DIRECTED TO CHECK BLOOD SUGAR TWICE DAILY 2022 active Not Available Not Available Not Avai lable metformin 1,000 mg tablet TK 1 T PO BID WITH THE MORNING AND SHANEL MEAL 04/28 completed Not Available Not Available Not Available gabapenti n 300 mg capsule TK 1 TO 3 CS PO HS PRF NEUROPAT HY active Not Available Not Available No t Available Aspir-81 mg tablet,de layed release Take 1 tablet every day by oral route. 2017 active Not Available Not Available Not Avai lable doxycycli ne hyclate 100 mg tablet TAKE 1 TABLET BY MOUTH EVERY 12 HOURS 02/13 completed Not Available Not Available Not Available amoxicill in 500 mg-potass ium clavulana te 125 mg tablet TAKE 1 TABLET BY MOUTH EVERY 12 HOURS FOR 10 DAYS 12/25 completed Not Available Not Available Not Available BD Ultra-Fin e Mini Pen Needle 31 gauge x 3/16 USE TO INJECT UNDER THE SKIN TWICE DAILY active Not Available Not Available No t Available Vitamin D3 2017 active Not Available Not Available Not Avai lable multivita min 2017 active Not Available Not Available Not Avai lable OneTouch Ultra2 Meter kit USE UTD active Not Available Not Available No t Available Lantus Solostar U-100 Insulin 100 unit/mL (3 mL) subcutane ous pen INJECT SUBCUTAN EOUSLY 30 UNITS DAILY DIRECTED 2022 active Not Available Not Available Not Avai lable Mucus Relief ER 600 mg tablet, extended release TAKE 1 TABLET BY MOUTH EVERY 12 HOURS 12/25 completed Not Available Not Available Not Available Farxiga 5 mg tablet Take 1 tablet every day by oral route. 04/28 completed Not Available Not Available Not Available Bydureon 2 mg/0.65 mL subcutane ous pen injector INJECT 2MG BY SUBCUTAN EOUS ROUTE EVERY WEEK 08/28 completed changed to BCise Not Available Not Available Not Available Bydureon BCise 2 mg/0.85 mL subcutane ous auto-inje ctor INJECT THE CONTENTS OF ONE PEN SUBCUTAN EOUSLY WEEKLY DIRECTED 12/12 completed Not Available Not Available Not Available Vyzulta 0.024 % eye drops 02/13 completed Not Available Not Available Not Available OneTouch Ultra Blue Test Strip TEST TWICE DAILY active Not Available Not Available No t Available Toujeo Max U-300 SoloStar 300 unit/mL (3 mL) subcutane ous insulin pen Inject 40 units every day by subcutan eous route. 12/05 completed Not Available Not Available Not Available OneTouch Ultra2 Meter TEST TWICE DAILY active Not Available Not Available No t Available OneTouch Delica Plus Lancet 33 gauge TEST TWICE DAILY active Not Available Not Available No t Available Vitals Date Recorded Body mass index (BMI) Body height Oxygen saturation Oxygen saturation in Arterial blood by Pulse oximetry Heart rate Body temperature Body weight Systolic blood pressure Diastolic blood pressure Provider Name and Address Organization Details Last Updated DateTime 2 28.6 kg/m2 182.88 cm 98 % 98 % 89 /min 98.1 [degF] 54866.9 9 g 110 mm[Hg] 70 mm[Hg] Not Available [facility] 3 04:42:49 Date Recorded Body mass index (BMI) Body height Heart rate Body temperature Body weight Systolic blood pressure Diastolic blood pressure Provider Name and Address Organization Details Last Updated DateTime 2 29.4 kg/m2 182.88 cm 92 /min 97 [degF] 60462.5 4 g 120 mm[Hg] 70 mm[Hg] Not Available [facility] 3 04:42:49 Date Recorded Body mass index (BMI) Body height Heart rate Body temperature Body weight Systolic blood pressure Diastolic blood pressure Provider Name and Address Organization Details Last Updated DateTime 2 28.5 kg/m2 182.88 cm 90 /min 98.4 [degF] 87253.4 g 110 mm[Hg] 70 mm[Hg] Not Available [facility] 3 04:42:49 Date Recorded Body mass index (BMI) Body height Heart rate Body temperature Body weight Systolic blood pressure Diastolic blood pressure Provider Name and Address Organization Details Last Updated DateTime 2 29.6 kg/m2 182.88 cm 98 /min 98.5 [degF] 70140.1 4 g 120 mm[Hg] 70 mm[Hg] Not Available [facility] 3 04:42:49 Date Recorded Body height Oxygen saturation Oxygen saturation in Arterial blood by Pulse oximetry Heart rate Body temperature Body weight Systolic blood pressure Diastolic blood pressure Provider Name and Address Organization Details Last Updated DateTime 2 182.88 cm 96 % 96 % 103 /min 98 [degF] 68313.3 2 g 122 mm[Hg] 72 mm[Hg] Not Available [facility] 3 04:42:49 Social History Question Answer Notes LastModified by [employer] ion Details LastModified Time Tobacco Smoking Status Never Smoker Not Available [facility] 06/19/2022 04:20:10 Do You Have An Advance Directive? Yes [id number] Information not available 06/19/2022 Are You Blind Or Do You Have Difficulty Seeing? No [id number] Information not available 06/19/2022 What Is Your Level Of Caffeine Consumption? None [id number] Information not available 06/19/2022 How Much Tobacco Do You Chew? None [id number] Information not available 06/19/2022 In The 14 Days Before Symptom Onset, Have You Had Close Contact With A Laboratory-confi rmed COVID-19 While That Case Was Ill? No [id number] Information not available 06/19/2022 In The 14 Days Before Symptom Onset, Have You Had Close Contact With A Person Who Is Under Investigation For COVID-19 While That Person Was Ill? No [id number] Information not available 06/19/2022 Are You Deaf Or Do You Have Serious Difficulty Hearing? No [id number] Information not available 06/19/2022 What Type Of Diet Are You Following? DIABETIC [id number] Information not available 06/19/2022 Which Illicit Or Recreational Drugs Have You Used? None [id number] Information not available 06/19/2022 What Is The Highest Grade Or Level Of School You Have Completed Or The Highest Degree You Have Received? [id number] MIGRATION.98509 [id number] Information not available 06/19/2022 Have There Been Any Changes To Your Family Or Social Situation? No MIGRATION.49947 97963 Information not available 06/19/2022 What Is The Fluoride Status Of Your Home? Unknown MIGRATION.52584 02141 Information not available 06/19/2022 Are There Any Guns Present In Your Home? No MIGRATION.09475 81198 Information not available 06/19/2022 Do You Use Insect Repellent Routinely? No MIGRATION.88972 91121 Information not available 06/19/2022 Where Do You Live? [place] MIGRATION.27478 74181 Information not available 06/19/2022 Do You Have A Medical Power Of Global Project Manager? Yes MIGRATION.81850 42317 Information not available 06/19/2022 What Was The Date Of Your Most Recent Tobacco Screening? 02/13/2022 MIGRATION.01919 52891 Information not available 06/19/2022 Do You Have Any Pets? Yes MIGRATION.64085 87465 Information not available 06/19/2022 What Is Your Relationship Status? MIGRATION.75207 68303 Information not available 06/19/2022 Do You Use Your Seat Belt Or Car Seat Routinely? Yes MIGRATION.25911 84722 Information not available 06/19/2022 Do You Have Smoke And Carbon Monoxide Detectors In Your Home? Yes MIGRATION.25404 51735 Information not available 06/19/2022 Are You Passively Exposed To Smoke? No MIGRATION.49532 28589 Information not available 06/19/2022 Are There Any Smokers In Your House? No MIGRATION.35350 14250 Information not available 06/19/2022 How Much Tobacco Do You Smoke? No MIGRATION.73307 53965 Information not available 06/19/2022 What Types Of Sporting Activities Do You Participate In? None MIGRATION.61837 54798 Information not available 06/19/2022 Do You Use Sunscreen Routinely? No MIGRATION.99522 23531 Information not available 06/19/2022 Has Tobacco Cessation Counseling Been Provided? No Not Needed-ne jolie Smoked MIGRATION.90370 33424 Information not available 06/19/2022 How Many Years Have You Smoked Tobacco? 0 MIGRATION.68911 81306 Information not available 06/19/2022 Have You Recently Traveled Abroad? No MIGRATION.62329 05300 Information not available 06/19/2022 Do You Have Difficulty Walking Or Climbing Stairs? No MIGRATION.96019 87821 Information not available 06/19/2022 Do You Have Any Dietary Restrictions? No MIGRATION.78187 04340 Information not available 06/19/2022 Sex: Male Functional Status Question Answer Note LastModified by [employer] ion Details LastModified Time Do you use any illicit or recreational drugs? No MIGRATION.47073 47432 Information not available 06/19/2022 Do you or have you ever used any other forms of tobacco or nicotine? No MIGRATION.28488 32182 Information not available 06/19/2022 What is your level of alcohol consumption? None MIGRATION.07061 19218 Information not available 06/19/2022 Do you or have you ever used smokeless tobacco? Never used smokeless tobacco MIGRATION.93287 03004 Information not available 06/19/2022 Do you have transportation difficulties? No MIGRATION.44476 93530 Information not available 06/19/2022 Are you able to walk? YESWOREST MIGRATION.23894 08416 Information not available 06/19/2022 Do you have difficulty doing errands alone? No MIGRATION.55786 20127 Information not available 06/19/2022 Are you able to care for yourself? Yes MIGRATION.46606 30259 Information not available 06/19/2022 What is your occupation? retired MIGRATION.66036 00048 Information not available 06/19/2022 Do you have difficulty dressing or bathing? No MIGRATION.28841 39198 Information not available 06/19/2022 Do you or have you ever used e-cigarettes or vape? Never used electronic cigarettes MIGRATION.34301 17754 Information not available 06/19/2022 What is your exercise level? Moderate stays active around house MIGRATION.48694 72129 Information not available 06/19/2022 Mental Status Question Answer Note LastModified by [employer] ion Details LastModified Time Do you feel stressed (tense, restless, nervous, or anxious, or unable to sleep at night)? [id number] MIGRATION.[id number] 26 Information not available 06/19/2022 Do you have difficulty concentrating, remembering or making decisions? No MIGRATION.91172906 26 Information not available 06/19/2022 Family History Relationship Description Onset Age of this Age Resolved Age Notes LastModified by Organization Details LastModified Time Mother Malignant neoplasm of ovary 78 MIGRATION.739 [id number] Not available 06/19/2022 04:40:59 Father Glaucoma MIGRATION.689 [id number] Not available 06/19/2022 04:40:59 Medical History Condition Response BLINDNESS N NERVE DISEASE Y RHEUMATIC FEVER N BLADDER PROBLEMS N KIDNEY STONES N MRSA N OTHER # 1 N POLIO N LUNG DISEASE/DISORDER N RADIATION / CHEMOTHERAPY N COPD N Other # 2 N BLOOD DISEASES N SURGERY N EAR OR HEARING PROBLEMS N MUMPS N BOWEL PROBLEMS N DEPRESSION (INCLUDING POST ) N STROKE/TIA N ULCERS N BENIGN PROSTATIC HYPERPLASIA N MEASLES N MYOCARDIAL INFARCTION N OBESITY N GERD/NAUSEA N ANEURYSM N URINARY/BLADDER/KIDNEY PROBLEMS N CORONARY ARTERY DISEASE (CAD) N ADDICTION CONCERNS N Impotence N ENDOMETRIOSIS N USE OF BLOOD THINNERS N SKIN PROBLEMS N GASTROINTESTINAL DISORDER N PERIPHERAL VASCULAR DISEASE N MUSCLE,JOINT OR BONE PROBLEMS N GASTROINTESTINAL BLEEDING N BLOOD CLOTS N ASTHMA N CATARACTS N ERECTILE DYSFUNCTION N VARICOSITIES N GI PROBLEMS N Low Testosterone N INFERTILITY N AIDS/HIV N CHEMOTHERAPY / RADIATION N LIVER DISEASE N MALE HYPOGONADISM N HYPERTENSION N Deficiency Y ANXIETY DISORDER N BLOOD TRANSFUSION N ANEMIA/BLOOD DISORDER N CHRONIC EAR INFECTIONS N BRONCHITIS N TUBERCULOSIS N GLAUCOMA N FOOT PROBLEM N DIVERTICULITIS N SLEEP APNEA N CHICKENPOX N INFECTIOUS DISEASE N PROSTATE N HEART ARRHYTHMIA N INSOMNIA N HIGH CHOLESTEROL / HYPERLIPIDEMIA Y EYE PROBLEMS N HYPERTHYROIDISM N NEUROLOGICAL PROBLEMS N EDEMA N CHRONIC PAIN SYNDROME N HYPOTHYROIDISM N CAROTID BLOCKAGE N CONSTIPATION N BACK / NECK PROBLEMS N HAVE YOU BEEN HOSPITALIZED OR SEEN IN [facility] IN THE PAST YEAR ? N ATHEROSCLEROSIS N BREAST PROBLEMS N DIALYSIS N ECZEMA N OSTEOPOROSIS N ARTHRITIS N NO SIGNIFICANT PAST MEDICAL HISTORY N APPENDICITIS N DIABETES, TYPE Y BAD TEETH N ENT N HEARTBURN / REFLUX N AUTISM SPECTRUM DISORDER (ASD) N HEPATITIS / LIVER DISEASE N GOUT N SLEEP DISORDER N ALZHEIMER'S DISEASE N Brain Problems N DEMENTIA N HERPES N SEIZURES/EPILEPSY N HEADACHES/MIGRAINES N VASCULAR DISEASE N PACEMAKER N Blood Disorder N DIZZINESS N HEART DISEASE/HEART PROBLEMS N KIDNEY DISEASE N MULTIPLE SCLEROSIS N CANCER: SPECIFY Y CARDIAC ARRHYTHMIA N ATRIAL FIBRILLATION N Gall Stones N PULMONARY EMBOLISM N AUTOIMMUNE DISEASE N Immunizations Vaccine Type Date Status Note Provider Nam e and Address Organization Details Recorded Time Influenza, high-dose, trivalent, PF 03/01/2017 completed Not Available [facility] 2022 04:51:36 Influenza, high-dose, quadrivalent, PF 02/13/2022 completed Not Available [facility] 04:51:37 Influenza, high-dose, trivalent, PF 01/20/2018 completed Not Available [facility] 2022 04:51:37 Past Encounters Encounter ID Performer Location Encounter Start Date Encounter Closed Date Diagnosis/Indication Diagnosis SNOMED-CT Code Diagnosis ICD10 Code Diagnosis Note [id number] Jovan Colindres MD [place] [facility] [place] Internal Med [facility] [address] [facility] [address] 07/28/2020 00:00:00 08/06/2020 11:11:12 [id number] Jovan Colindres MD [facility] [place] Internal Med [facility] [address] [address] 08/30/2020 00:00:00 08/30/2020 21:00:49 [id number] Jovan Colindres MD [facility] [facility] [place] Internal Med [facility] [address] [address] 09/22/2020 00:00:00 10/07/2020 16:51:40 [id number] Jovan Colindres MD [facility] [place] Internal Med [facility] [address] [address] 11/20/2020 00:00:00 12/10/2020 16:35:12 [id number] Jovan Colindres MD [facility] [place] Internal Med [facility] [address] [address] 04/23/2021 00:00:00 04/23/2021 22:25:57 [id number] Jovan Colindres MD [facility] [facility] [place] Internal Med [facility] [address] [address] 08/20/2021 00:00:00 09/10/2021 22:39:24 [id number] Jovan Colindres MD [facility] Internal Med [facility] [address] [address] 09/24/2021 00:00:00 11/18/2021 22:40:08 [id number] Jovan Colindres MD [facility] Internal Med [facility] [address] [address] 12/25/2021 00:00:00 01/13/2022 13:01:02 [id number] Jovan Colindres MD [facility] Internal Med [facility] [address] [address] 02/13/2022 00:00:00 03/03/2022 15:06:54 [id number] Jovan Colindres MD [facility] Internal Med [facility] [address] [address] 04/19/2022 00:00:00 04/19/2022 15:58:55 Health Concerns Section Related Observation LastModified by Organization Detai ls LastModified Time None Recorded Concern Status LastModified by Organization Details LastModified Time None Recorded Advance Directives Directive Y: Payers None recorded.
== END 2024-09-10 11:00 | disposition home or self-care (01) ==
LOC: ANHAUDIO 11:00
PROVIDERS: PCP Emergency Medicine; Visit Provider Emergency Medicine
DX: H90.41 Sensorineural hearing loss, unilateral, right ear, with unrestricted hearing on the contralateral side (principal)
CPT/HCPCS: 92557; 92567

== ENCOUNTER 2024-11-19 09:00 | Outpatient (RCR) | payer MEDICARE, SELFPAY | END 2024-11-22 10:24 | disposition home or self-care (01) | LOC: ANHDMC 09:00 | PROVIDERS: PCP Emergency Medicine; Visit Provider Internal Medicine | DX: E11.65 Type 2 diabetes mellitus with hyperglycemia (principal); Z71.89 Other specified counseling | CPT/HCPCS: G0108 ==

== ENCOUNTER 2024-12-14 09:26 | Emergency (ER) | payer MEDICARE, SELFPAY ==
--- OUTSIDE RECORDS SUMMARY | 2019-02-05 07:40 | XMS_ITS | Continuity of Care Document ---
Author Organization [facility] Address [address] [place] [address] Phone Care Team Providers Care [employer] Name Role Phone Valeria Ramires MD Unavailable [...] and evening meals 1000 MG - Active CubiezTouch Delica Lancets 33 gauge to test twice [...] Diagnoses Date Provider Providers Copied on Encounter [facility], [address], [place], [place], [address] , [place] tel: [phone] [place] No Information 9 Apollolizbeth Valeria. [address], [address], [place], [place], [address], [place]. tel:[phone] [facility], [address], [place], [place], [address] , [place] tel: [phone] [place] No Information 7 Verito Buck. [address], [place], [place], [address], [place]. tel:[phone] [facility], [address], [place], [place], [address] , [place] tel: [phone] [place] Anemia, unspecified type 7 Apollolizbeth Valeria. [address], [address], [place], [place], [address], [place]. tel:[phone] [facility], [address], [place], [place], [address] , [place] tel: [phone] [place] Type 2 diabetes mellitus with peripheral neuropathyOther hyperlipidemiaTac hycardiaElevated PSAHistory of prostate cancer 7 Verito Buck. [address], [place], [place], [address], [place]. tel:[phone] Referring Provider: Valeria Ramires, [address], [place], [address] . tel:[phone] [facility], [address], [place], [place], [address] , [place] tel: [phone] [place] Type 2 diabetes mellitus with peripheral neuropathyTachyca rdiaElevated PSA 7 Verito Buck. [address], [place], [place], [address], [place]. tel:[phone] Referring Provider: Valeria Ramires, [address] [place] [address] [address], [place], [address] . tel:[phone] [facility], [address], [place], [place], [address] , [place] tel: [phone] [place] Type 2 diabetes mellitus with peripheral neuropathyHistory of prostate cancerOther [facility] with inadequate coverage of health expenses [facility]. [address], [place], [place], [address], [place]. tel:[phone] Referring Provider: Valeria Ramires, [address] [place] [address] [address], [place], [address] . tel:[phone] [facility], [address], [place], [address] , [place] tel: [phone] [place] Encounter for immunizationType 2 diabetes mellitus with peripheral neuropathyHistory of prostate cancerEncounter for screening for malignant neoplasm of prostate [facility]. [address] [place] [address], [address], [place], [place], [address], [place]. tel:[phone] Referring Provider: Valeria Ramires, [address] [place] [address] [address], [place], [address] . tel:[phone] [facility], [address], [place], [place], [address] , [place] tel: [phone] [place] Diabetes Mellitus, Adult Onset, UncontrolledProst ate cancerElevated prostate specific antigen (psa) Keyla Shaw. [address] [place] [address], [address], [place], [place], [address], [place]. tel:[phone] Referring Provider: Valeria Ramires, [address] [place] [address] [address], [place], [address] . tel:[phone] [facility], [address], [place], [place], [address] , [place] tel: [phone] [place] AnemiaDiabetes Mellitus, Adult Onset, UncontrolledOther and unspecified hyperlipidemiaObe sityPersonal history of malignant neoplasm of prostate 4 Shiela Bauer. [address], [place], [place], [address], [place]. tel:[phone] [facility], [address], [place], [address] , [place] tel: [phone] [place] Type II diabetes mellitusOther and unspecified hyperlipidemiaAne miaObesityPersona l history of malignant neoplasm of prostate 4 Keyla Shaw. [address], [address], [place], [place], [address], [place]. tel:[phone] Referring Provider: Valeria Ramires, [facility] [address], [place], [address] . tel:[phone] [facility], [address], [place], [place], [address] , [place] tel: [phone] [facility] Prostate cancer 4 Ansley Berger. [address], [address], [place], [address], . tel:[phone] Referring Provider: Valeria Ramires, [facility] [address], [place], [address] . tel:[phone] [facility], [address], [place], [place], [address] , [place] tel: [phone] [facility] Prostate cancer 4 Ansley Berger. [address], [address], [place], [place], [facility], . tel:[phone] Referring Provider: Valeria Ramires [facility] [address], [place], [address] . tel:[phone] [facility], [address], [place], [place], [address] , tel: [phone] [place] Diabetes Mellitus, Adult Onset, Uncontrolled 4 Shiela Bauer. [address], [place], [address], [place]. tel:[phone] Referring Provider: Valeria Ramires, [address] [place] [address] [address], [place], [address] . tel:[phone] [facility], [address], [place], [place], [address] , tel: [phone] [place] Diabetes Mellitus, Adult Onset, UncontrolledOther and unspecified hyperlipidemiaPer haim history of malignant neoplasm of prostateAnemiaObe sityAbnormal KJY-nh-klwkqdckwg ratio May-0 9-201 4 Keyla Shaw. [address], [address], [place], [place], [address], [place]. tel:[phone] Referring Provider: Valeria Ramires, [address] [place] [address] [address], [place], [address] . tel:[phone] [facility], [address], [place], [place], [address] , tel: [phone] [facility] Malignant Neoplasm, Prostate Apr-3 0-201 4 [facility]. [address], [facility] [address], [place], [facility], . tel:[phone] Referring Provider: Valeria Ramires, [address] [place] [address] [address], [place], [address] . tel:[phone] [facility], [address], [place], [place], [address] , [place] tel: [phone] [facility] Malignant Neoplasm, Prostate Apr-1 6-201 4 [facility]. [address], [address], . tel:[phone] Referring Provider: Valeria Ramires, [facility] [address], [place], [address] . tel:[phone] [facility], [address], [place], [place], [address] , tel: [phone] [place] Diabetes Mellitus Type 2, Uncomplicated Apr-1 1-201 4 Baylee Radford. [facility] [address], [place], [place], [address], [place]. tel:[phone] [facility], [address], [place], [place], [address] , [place] tel: [phone] [place] Loss of appetiteDiabetes Mellitus, Adult Onset, UncontrolledOther and unspecified hyperlipidemiaHis tory of prostate cancer 4 Baylee Radford. [address], [place], [place], [address], [place]. tel:[phone] Referring Provider: Valeria Ramires, [address] [place] [address] [address], [place], [address] . tel:[phone] [facility], [address], [place], [place], [address] , [place] tel: [phone] [place] Diabetes Mellitus, Adult Onset, UncontrolledOther and unspecified hyperlipidemiaObe sityMalignant Neoplasm, ProstateOther specified pre-operative examination 4 Keyla Shaw. [address] [place] [address], [address], [place], [place], [address], [place]. tel:[phone] Referring Provider: Valeria Ramires, [address] [place] [address] [address], [place], [address] . tel:[phone] [facility], [address], [place], [address] , [place] tel: [phone] [facility] Prostate cancer 4 [facility]. [address], [place], [address], [place]. tel:[phone] Referring Provider: Valeria Ramires, [address] [place] [address] [address], [place], [address] . tel:[phone] [facility], [address], [place], [place], [address] , [place] tel: [phone] [facility] Prostate cancer 4 Ansley Berger. [address], [place], [address], [place]. tel:[phone] [facility], [address], [place], [place], [address] , tel: [phone] [facility] Elevated prostate specific antigen (psa) 4 [facility]. [address], [place], [address], [place]. tel:[phone] Referring Provider: Valeria Ramires, [address] [place] [address] [address], [place], [address] . tel:[phone] [facility], [address], [place], [place], [address] , tel: [phone] [facility] Elevated prostate specific antigen (psa) 4 [facility]. [address], [address], [place], [address], [place]. tel:[phone] Referring Provider: Valeria Ramires, [address] [place] [address] [address], [place], [address] . tel:[phone] [facility], [address], [place], [place], [address] , [place] tel: [phone] [place] Diabetes mellitus without mention of complication,Elev ated PSAOther and unspecified hyperlipidemiaObe sity 4 Keyla Shaw. [address] [place] [address], [facility] [address], [place], [place], [address], [place]. tel:[phone] Referring Provider: Valeria Ramires, [address] [place] [address] [address], [place], [address] . tel:[phone] [facility], [address], [place], [place], [address] , [place] tel: [phone] [place] Diabetes Mellitus, Adult Onset, UncontrolledEleva piper prostate specific antigen (psa)Other and unspecified hyperlipidemia 4 Verito Buck. [address] [place] [address], [facility] [address], [place], [place], [address], [place]. tel:[phone] Referring Provider: Valeria Ramires, [address] [place] [address] [address], [place], [address] . tel:[phone] [facility], [address], [place], [place], [address] , [place] tel: [phone] [place] Diabetes mellitus without mention of complication,Hype rlipidemiaSpecial screening for malignant neoplasm of prosta Dec-0 9-201 3 [facility]. [address] [facility] [address], [place], [place], [address], . tel:[phone] Referring Provider: Valeria Ramires, [address] [facility] [address], [place], [address] . tel:[phone] [facility], [address], [place], [place], [address] , tel: [phone] [place] Cellulitis and abscess of buttock Dec-1 0-201 2 [facility]. [address] [address], [place], [place], [address], . tel:[phone] Referring Provider: Valeria Ramires, [address] [address], [place], [address] . tel:[phone] [facility], [address], [place], [place], [address] , tel: [phone] [place] Cellulitis and abscess of buttock Dec-0 8-201 2 Jaclyn Mendoza. [address] [address], [place], [place], [address], . [phone] Referring Provider: Valeria Ramires, [address] [place] [address], [place], [address] . tel:[phone] [facility], [address], [place], [place], [address] , tel: [phone] [place] Diabetes mellitus without mention of complication,Absc ess of cellulitis of buttockHyperlipid emiaElevated PSAAnemiaNEED FOR PROPHYLACTIC VACCINATION WITH COMBINED DIPHTHERIA-TETANU S-PERTUSSIS (DTP) (DTAP) VACCINENeed for prophylactic vaccination and inoculation against streptococcus pneumoniae [pneumococcus]Nee d for prophylactic vaccination and inoculation against viralhepatitisNEE D FOR PROPHYLACTIC VACCINATION AND INOCULATION, INFLUENZA Dec-0 6-201 2 [facility]. [address] [facility] [address], [place], [address], [place]. tel:[phone] Referring Provider: Valeria Ramires, [address] [place] [address], [place], [address] . tel:[phone] [facility], [address], [place], [place], [address] , [place] tel: [phone] [place] Diabetes mellitus without mention of complication, type II or unspecified type, not stated as uncontrolledOther and unspecified hyperlipidemiaScr eening for malignant neoplasms of the prostateAbscess of cellulitis of buttockAbnormal laboratory test 2 [facility]. [address] [place] [address] [address], [place], [place], [address], [place]. tel:[phone] Referring Provider: Valeria Ramires, [address] [place] [address], [place], [address] . tel:[phone] [facility], [address], [place], [place], [address] , [place] tel: [phone] [place] SPECIAL SCREENING FOR MALIGNANT NEOPLASMS, OTHER SITES 2 Sewing Joan. [address] [place] [address], [place], [address], [place]. [phone] [facility], [address], [place], [address] , [place] tel: [phone] [place] No Information 1 Keyla Shaw. [address] [place] [address], [address] [address], [place], [place], [address], [place]. [phone] [facility], [address], [place], [place], [address] , [place] tel: [phone] [place] HYPERLIPIDEMIA NEC/NOS 1 Willian Atwood. [address] [place] [address], [facility] [address], [place], [place], [address]. tel:[phone] [facility], [address], [place], [address] , [place] tel: [phone] [place] DMII WO CMP NT ST UNCNTR 1 Willian Atwood. [address], [place], [place], [address]. tel:[phone] [facility], [address], [place], [address] , [place] tel: [phone] [place] BENIGN REINA SKIN EAR 1 Keyla Shaw. [address], [place], [place], [address], [place]. tel:[phone] Family History Family Member Type Diagnosis Age At Onset No Information Immunizations Vaccine Date Status Comments Pneumococcal conjugate PCV 13 administere d Source: New Immunization Record Flu (split) (3 yrs or older) administered Source: New Immunization Record Hep B (adult, 2 dose) administered Source : New Immunization Record Flulaval administered Note: [facility] 07922 -115-10 ; Source: New Immunization Record Tdap administered Note: [facility] 13355 -400-10 ; Source: New Immunization Record Pneumo (2 yrs or older) (PPV23) administered Note: [facility] 4726-8926- 01 ; Source: New Immunization Record Hep B (adult) administered Note: [facility] 0006 -4739-00 ; Source: New Immunization Record Payers Payer name Insurance type Covered republican ID Authoriza tion(s) MEDICARE [id number] MEDICARE [id number] Social History Type Description Quantity Date Captured [...]
--- OUTSIDE RECORDS SUMMARY | 2024-11-01 04:40 | XMS_ITS ---
Author Organization [facility] Address [address] [place], [place] [id number] Care Team Providers Care Senior Process Engineer Name Role Phone LUZ APPLE Unavailable [phone] Jovan Ram Unavailable Unavailable Allergies No Known Allergies REASON FOR VISIT The patient returns for wound care. 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 The nonviable tissue was sharply debrided down to the layer of subcutaneous tissue. A dry sterile dressing was applied. Ulcer Plan of Care: The treatment goals are closure of the ulceration within an appropriate time frame. This will require regular debridements every 2 weeks until skin closure has been met. The patient will come in sooner than 2 weeks if the wound develops any signs of infection or deteriorates. The plan of care will be reviewed every month. If there is no change in the size of the wound, we will re evaluate debridement schedule, topical medications being used, as well as modify techniques for offloading the wound. SALMON GRADING SYSTEM Grade 0: Pre-ulcerative Lesion, healed ulcers, presence of bone deformity Grade 1: Superficial Ulcer without subcutaneous tissue involvement Grade 2: Penetration through the subcutaneous tissue (may expose bone, tendon, ligament or joint capsule) Grade 3: Osteitis, abscess or osteomyelitis Grade 4: Gangrene of the foot. 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 The nonviable tissue was sharply debrided down to the layer of subcutaneous tissue. A dry sterile dressing was applied. Ulcer Plan of Care: The treatment goals are closure of the ulceration within an appropriate time frame. This will require regular debridements every 2 weeks until skin closure has been met. The patient will come in sooner than 2 weeks if the wound develops any signs of infection or deteriorates. The plan of care will be reviewed every month. If there is no change in the size of the wound, we will re evaluate debridement schedule, topical medications being used, as well as modify techniques for offloading the wound. SALMON GRADING SYSTEM Grade 0: Pre-ulcerative Lesion, healed ulcers, presence of bone deformity Grade 1: Superficial Ulcer without subcutaneous tissue involvement Grade 2: Penetration through the subcutaneous tissue (may expose bone, tendon, ligament or joint capsule) Grade 3: Osteitis, abscess or osteomyelitis Grade 4: Gangrene of the foot. Based on clinical findings, the patient has the following grade ulceration: 2 Continue CloudWalker inserts Next Appt Details Follow Up: 2 Weeks, Reason: Patient will bring in Cloudwalker inserts at next visit Provider Name:MANNY VALVERDE HEIDI, 12/22/2024 10:10:00 AM, [address], [facility], [place], [place], [id number], Progress Notes * Jai ESCOBARDOB:1950 (74 yo M)Acc No.[id number]:11/01/2024 Patient: Jai PITTS Provider: Chace Apple DPM :1950 A ge:74 Y S ex:Male Date:11/01/2024 Address:[address] [place] [address] , [facility] Subjective: * Chief Complaints: * 1 . The patient returns for wound care. He is wearing slippers / house shoes today, and not his shoes and inserts. * HPI: H [facility], right foot. Patient states he has not seen any change. MA LB. * ROS: G eneral / Constitutional: Patient denies c hills, fever, weight loss. ? M usculoskeletal: Patient denies w eakness, broken foot bone. ? P eripheral Vascular: Patient complains of u lceration of feet. S kin: Patient complains of f ungal nails, calluses and corns.? N eurologic: Patient denies b alance difficulty, confusion, difficulty speaking, dizziness. P atient complains of n umbness. * Medical History: C ancer, Open Sores, Diabetic, Hard of Hearing. * Surgical History: p rostate removal 2021. * Family History: F ather: diabetic. * Medications: T aking Rosuvastatin Calcium 10 MG Tablet 1 tablet Orally Once a day , Taking Ozempic , Taking Aspirin 81 81 MG Tablet Delayed Release 1 tablet Orally Once a day , Taking Lantus 100 UNIT/ML Solution as directed Subcutaneous , Medication List reviewed and reconciled with the patient * Allergies: N .K.D.A. Objective: * Vitals: W t:185lbs, Wt-k.92 kg. * Examination: P hysical Examination: General appearance: A lert, pleasant, well-nourished and in no acute distress. D ermatologic: Skin findings: S kin is thin, atrophic and lacking pedal hair. Nail pathology: N ails 1, 2, 3, 4, and 5 bilateral are elongated, thick, discolored, and dystrophic with subungual debris. They are painful to palpation. Ulcer: p lantar aspect of the right 5th metatarsal head.? It measures 4mm x 2mm. It has a grannular base and fibrotic and hyperkeratotic border.? No erythema, no calor, no active drainage. V ascular: Dorsalis pedis pulse: 1 /4 b ilateral. Posterior tibial pulse: 0 /4 bilateral. Capillary refill: g reater than 3 seconds. Edema: N o edema bilateral. N eurologic: [place]-We[place]in 5.07 monofilament a bsent sensorium to midfoot via 5.07g monofilament. M usculoskeletal: Muscle Strength M uscle strength is 5/5 in regards to dorsiflexion, plantarflexion, inversion, and eversion in bilateral lower extremities. ? Assessment: * Assessment: 1. 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 A therosclerosis of pokagon arteries of extremities with intermittent claudication, bilateral legs - I70.213 3 . P ain in right foot - M79.671 & #160; Plan: * Treatment: * Immunizations: Immunization record has been reviewed and updated. * Follow Up: 2 Weeks (Reason: Patient will bring in Gymbox inserts at next visit) * Billing Information: * Visit Code: 26301 Office Visit, Est Pt., Level 3. * Procedure Codes: * Electronic signature of LUZ APPLE DPM on 12/14/2024 at 09:48 AM CDT Sign off status: Pending * Provider: Chace Apple DPM Date: 11/01/2024 Generated for Jose chau/Galileo/Howarditting on: 12/14/2024 09:48 AM CDT History and Physical Notes * HPI (History of Present Illness) Category Sub-Category Detail Notes Category Not es HPI Follow Up Visit Patient presents for follow-up visit for wound check, right foot. Patient states he has not seen any change. SHAILESH LB Examination Category Sub-Category Detail Notes Category Not es Dermatologic Skin findings: Skin is thin, at rophic and lacking pedal hair Nail pathology: Nails 1, 2, 3, 4, an d 5 bilateral are elongated, thick, discolored, and dystrophic with subungual debris. They are painful to palpation Ulcer: plantar aspect of th e right 5th metatarsal head. It measures 4mm x 2mm. It has a grannular base and fibrotic and hyperkeratotic border. No erythema, no calor, no active drainage Neurologic [place] 5.07 monofilamen t absent sensorium to midfoot via 5.07g monofilament Vascular Dorsalis pedis pulse: 1/4 bilateral Edema: No edema bilateral Capillary refill: greater than 3 secon ds Posterior tibial pulse: 0/4 bilateral Physical Examination General appearance: Alert, pleasant, well-nourished and in no acute distress Musculoskeletal Muscle Strength Muscle strength is 5/5 in regards to dorsiflexion, plantarflexion, inversion, and eversion in bilateral lower extremities
--- OUTSIDE RECORDS SUMMARY | 2024-11-22 04:50 | XMS_ITS ---
Author Organization [facility] Address [address] [place], [place] [id number] Care Team Providers Care Jet Dyeing Machine Operator Name Role Phone LUZ APPLE Unavailable [phone] Jovan Ram Unavailable Unavailable REASON FOR VISIT The CloudWalker inserts are helping a lot with the wound on his right foot Medications Medication SIG (Take, Route, Frequency, Duration) Notes Start Date End Date Status Rosuvastatin Calcium 10 MG 1 tablet Orally Once a day Active Aspirin 81 81 MG 1 tablet Orally Once a day Active Ozempic Active Lantus 100 UNIT/ML as directed Subcutaneous Active Social History Tobacco Use: Social History Observation Description Date Details (start date - stop date) Never Smoker NA - NA Tobacco Control (Standard) Question Answer Notes Tobacco use: Nonsmoker Vital Signs Weight 185 lbs 11/22/2024 Weight-kg 83.92 kg 11/22/2024 Encounters Encounter Location Date Provider Diagnosis [facility] [address] [place], [place] [id number] 11/22/2024 LUZ APPLE Atherosclerosis of [place] arteries of extremities with intermittent claudication, bilateral legs I70.213 ; Non-pressure chronic ulcer of other part of right foot limited to breakdown of skin L97.511 ; Pain in right foot M79.671 and Type 2 diabetes mellitus with foot ulcer E11.621 Assessments Encounter Date Diagnosis (ICD Code) Assessment Notes Treatment Notes Treatment Clinical Notes Section Notes 11/22/2024 Atherosclerosis of [place] arteries of extremities with intermittent claudication, bilateral legs (ICD-10 - I70.213) 11/22/2024 Non-pressure chronic ulcer of other part of right foot limited to breakdown of skin (ICD-10 - L97.511) Ulcer Debridement: Using a 15 blade, the [...] the patient has the following grade ulceration: 1 Continue CloudWalker inserts 11/22/2024 Pain in right foot (ICD-10 - M79.671) 11/22/2024 Type 2 diabetes mellitus with foot ulcer (ICD-10 - E11.621) 11/22/2024 Other Plan Of Treatment Treatment Notes Assessment Notes Non-pressure chronic ulcer o f other part of right foot limited to breakdown of skin Ulcer Debridement: Using a 15 blade, the [...] the patient has the following grade ulceration: 1 Continue CloudWalker inserts Next Appt Details Follow Up: 2 Weeks, Reason: Wound care. Anticipate closure Provider Name:MANNY Natalie GORDON, 12/22/2024 10:10:00 AM, [address], [address], [id number], Progress Notes * Jai ESCOBARDOB:1950 (74 yo M)Acc No.[id number]:11/22/2024 Patient: Jai PITTS Provider: Chace Apple DPM :1950 A ge:74 Y S ex:Male Date:11/22/2024 Address[facility] [address] [facility] [id number] Subjective: * Chief Complaints: * 1 . The CloudWalker inserts are helping a lot with the wound on his right foot. * HPI: H PI: Follow Up Visit P atient presents for follow-up visit for a wound on the right foot. Patient states that the wound is doing good and has not given his any issues. , MA: [facility]. * ROS: G eneral / Constitutional: Patient [...] * Family History: F ather: diabetic. * Social History: T obacco Use: T obacco Control (Standard) T obacco use: N onsmoker. D rugs/Alcohol: D o you drink alcohol?: No. * Medications: T aking Rosuvastatin Calcium 10 MG Tablet 1 tablet Orally Once a day , Taking Ozempic , Taking Aspirin 81 81 MG Tablet Delayed Release 1 tablet Orally Once a day , Taking Lantus 100 UNIT/ML Solution as directed Subcutaneous , Medication List reviewed and reconciled with the patient Objective: * Vitals: W t:185lbs, Wt-k.92 kg. [...] the right 5th metatarsal head.? It measures 1mm with a hyperkeratotic border. No erythema, no calor, no active drainage.? V ascular: Dorsalis pedis pulse: 1 /4 b ilateral. Posterior tibial pulse: 0 /4 bilateral. Capillary refill: g reater than 3 seconds. Edema: N o edema bilateral. N eurologic: [place]-Weinstin 5.07 monofilament a bsent sensorium to midfoot via 5.07g monofilament. M usculoskeletal: Muscle Strength M uscle strength is 5/5 in regards to dorsiflexion, plantarflexion, inversion, and eversion in bilateral lower extremities. ? Assessment: * Assessment: 1. N on-pressure chronic ulcer of other part of right foot limited to breakdown of skin - L97.511 (Primary) 2 . A therosclerosis of [place] arteries of extremities with intermittent claudication, bilateral legs - I70.213 3 . P ain in right foot - M79.671? 4. T ype 2 diabetes mellitus with foot ulcer - E11.621 Plan: * Treatment: * Immunizations: Immunization record has been reviewed and updated. * Preventive Medicine: Screenings: F all risk screening F all Risk Assessment: N o falls in the past year. * Follow Up: 2 Weeks (Reason: Wound care. Anticipate closure) * Billing Information: * Visit Code: 44630 Office Visit, Est Pt., Level 3. * Procedure Codes: * Electronic signature of LUZ APPLE DPM on 12/14/2024 at 09:48 AM CDT Sign off status: Pending * Provider: Chace Apple DPM Date: 11/22/2024 Generated for Jose chau/Galileo/Victor M on: 0 12/14/2024 09:48 AM CDT History and Physical Notes * HPI (History of Present Illness) Category Sub-Category Detail Notes Category Not es HPI Follow Up Visit Patient presents for follow-up visit for a wound on the right foot. Patient states that the wound is doing good and has not given his any issues. , MA: mca Examination Category Sub-Category Detail Notes Category Not es Dermatologic Skin findings: Skin is thin, at rophic and lacking pedal hair Nail pathology: Nails 1, 2, 3, 4, an d 5 bilateral are elongated, thick, discolored, and dystrophic with subungual debris. They are painful to palpation Ulcer: plantar aspect of th e right 5th metatarsal head. It measures 1mm with a hyperkeratotic border. No erythema, no calor, no active drainage Neurologic [place]-Weinstin 5.07 monofilamen t absent sensorium to midfoot [...]
--- OUTSIDE RECORDS SUMMARY | 2024-12-13 04:40 | XMS_ITS ---
Author Organization [facility] Address [address] [place], [place] [id number] Care Team Providers Care Production Sampler Name Role Phone LUZ APPLE Unavailable [phone] Jovan Ram Unavailable Unavailable REASON FOR VISIT *Wound check pt brother césar called to cancel appt due to simon being sick Encounters Encounter Location Date Provider Diagnosis [facility] [place] [address] [place], [place] [phone] 12/13/2024 LUZ APPLE Plan Of Treatment Next Appt Details Provider Name:MANNY GORDON, 12/22/2024 10:10:00 AM, [address], [place], [place], [phone], Progress Notes * ESTRELLA, SimonDOB:1950 (74 yo M)Acc No.[id number]:12/13/2024 Patient: Simon PITTS Provider: Chace Apple DPM :1950 A ge:74 Y S ex:Male Date:12/13/2024 Address:[address] [place], [id number] Subjective: * Chief Complaints: * 1 . *Wound check pt brother césar called to cancel appt due to simon being sick. * Medical History: Objective: * Vitals: Assessment: Plan: * Treatment: * Billing Information: * Visit Code: * Procedure Codes: * Electronic signature of LUZ APPEL DPM on 12/14/2024 at 09:48 AM CDT Sign off status: Pending * Provider: Chace Apple DPM Date: 12/13/2024 Generated for Jose chau/Galileo/Victor M on: 12/14/2024 09:48 AM CDT
[2024-12-14] VITALS (8 sets, daily range): BP systolic 138–207; BP diastolic 83–138; PULSE 103–118; RESP 20–25; TEMP 36.8; O2SAT 95–100
--- NOTE | ~2024-12-14 | CT_ITS ---
EXAMINATION: CT abdomen pelvis w con DATE: 12/14/2024 12:24 INDICATION: Abdomen pain, nausea and vomiting TECHNIQUE: Computed tomography (CT) of the abdomen and pelvis was performed without intravenous contrast. The dose-length product was 563.58 mGy-cm. Automated exposure control and iterative reconstruction technique were employed. COMPARISON: CT dated 11/07/2021 FINDINGS: Lung bases are unremarkable. No significant pleural or pericardial effusion. Heart size normal. No significant vascular abnormality. There is a 5.1 x 4.7 cm new enhancing renal mass in the left kidney medially. There are right renal cysts. There is left hydronephrosis extending to the bladder. There is possible mass at the left UVJ. Fatty infiltration of the liver. Status post cholecystectomy. The spleen, pancreas, adrenal glands are unremarkable. Status post cholecystectomy with expected prominence of the bile ducts. Nonobstructive bowel gas pattern. No abnormal pelvic masses or fluid collections. No free air. There is left perin ephric fluid. Mild lumbar spondylosis. No focal lytic or blastic lesions. IMPRESSION: 1. New left renal mass measuring 5.2 cm, consistent with renal cell carcinoma until proven otherwise. 2: Mild-moderate left hydroureteronephrosis to the UVJ, possibly secondary to obstructing UVJ mass. Recommend urological consultation. Reviewed, dictated and finalized at location O. IMPRESSION: 1. New left renal mass measuring 5.2 cm, consistent with renal cell carcinoma u ntil proven otherwise. 2: Mild-moderate left hydroureteronephrosis to the UVJ, possibly secondary to o bstructing UVJ mass. Recommend urological consultation.
--- OUTSIDE RECORDS SUMMARY | 2024-12-14 09:49 | XMS_ITS | Patient Health Record ---
Author Organization [facility] Address [address] [place], [place] [address] Care Team Providers Care Suture Polisher Name Role Phone ZECHARIAH LUZ Unavailable [phone] Jovan Ram Unavailable Unavailable Allergies No Known Allergies Reason For Referral No Information Medications Medication SIG (Take, Route, Frequency, Duration) Notes Start Date End Date Status Rosuvastatin Calcium 10 MG 1 tablet Orally Once a day Active Aspirin 81 81 MG 1 tablet Orally Once a day Active Ozempic Active Lantus 100 UNIT/ML as directed Subcutaneous Active Immunizations Vaccine Route Administration Date Status Comme nts Influenza, unspecified formulation Unknown 05/04/2013 A dministered Pneumococcal polysaccharide PPV23 Unknown 07/08/2013 Ad ministered Social History Tobacco Use: Social History Observation Description Date Details (start date - stop date) Never Smoker NA - NA Tobacco Control (Standard) Question Answer Notes Tobacco use: Nonsmoker Vital Signs Weight-kg 83.92 kg 11/22/2024 Weight 185 lbs 11/22/2024 Encounters Encounter Location Date Provider Diagnosis [facility] [address] [place], [place] [id number] 11/01/2024 LUZ APPLE 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 ; Atherosclerosis of [place] arteries of extremities with intermittent claudication, bilateral legs I70.213 and Pain in right foot M79.671 [facility] [address] [facility] [place] [id number] 11/22/2024 LUZ SNOOK Atherosclerosis of [place] arteries of extremities with intermittent claudication, bilateral legs I70.213 ; Non-pressure chronic ulcer of other part of right foot limited to breakdown of skin L97.511 ; Pain in right foot M79.671 and Type 2 diabetes mellitus with foot ulcer E11.621 [facility] [place] [address] [place] [id number] 09/20/2024 LUZ SNOOK Tinea unguium B35.1 ; 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 ; Acquired keratosis [keratoderma] palmaris et plantaris L85.1 ; Atherosclerosis of [place] arteries of extremities with intermittent claudication, bilateral legs I70.213 ; Pain in right foot M79.671 and Pain in left foot M79.672 [facility] [place] [address] [place] [id number] 10/04/2024 LUZ SNOOK 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 ; Atherosclerosis of [place] arteries of extremities with intermittent claudication, bilateral legs I70.213 and Pain in right foot M79.671 Assessments Encounter Date Diagnosis (ICD Code) Assessment Notes Treatment Notes Treatment Clinical Notes Section Notes 09/20/2024 Tinea unguium (ICD-10 - B35.1) Nails 1-5 Bilateral were debrided extensively with nail nippers and emery board, reducing length and girth to pink healthy tissue with any subungual debris and necrotic tissue removed 09/20/2024 Non-pressure chronic ulcer of other part of [...] patient has the following grade ulceration: 2 Inserts: Dispensed and fitted pre-fabricated arch supports. Educated patient on their use. 11/01/2024 Atherosclerosis of [place] arteries of extremities with intermittent claudication, bilateral legs (ICD-10 - I70.213) 11/01/2024 Non-pressure chronic ulcer of other part [...] following grade ulceration: 2 Continue CloudWalker inserts 10/04/2024 Atherosclerosis of [place] arteries of extremities with intermittent claudication, bilateral legs (ICD-10 - I70.213) 10/04/2024 Non-pressure chronic ulcer of other part of [...] following grade ulceration: 2 Continue CloudWalker inserts 11/22/2024 Atherosclerosis of [place] arteries of extremities with intermittent claudication, bilateral [...] Pain in right foot (ICD-10 - M79.671) 10/04/2024 Pain in right foot (ICD-10 - M79.671) 09/20/2024 Acquired keratosis [keratoderma] palmaris et plantaris (ICD-10 - L85.1) A total of 1 corns or calluses, as described in the note above, were cut and pared utilizing a #15 blade 11/01/2024 Pain in right foot (ICD-10 - M79.671) 11/22/2024 Type 2 diabetes mellitus with foot ulcer (ICD-10 - E11.621) 09/20/2024 Atherosclerosis of [place] arteries of extremities with intermittent claudication, bilateral legs (ICD-10 - I70.213) 09/20/2024 Pain in right foot (ICD-10 - M79.671) 09/20/2024 Pain in left foot (ICD-10 - M79.672) 11/22/2024 Other Plan Of Treatment Next Appt Details Provider Name:MANNY GORDON, 12/22/2024 10:10:00 AM, [address], [facility], [place], [place], [id number], Insurance Providers Payer Name Payer Address Payer Phone Subscriber Number Group Number Insured Name Patient Relationship to Insured Coverage Start Date Coverage End Date [facility] [address] [address] [place], [place] [id number] Jai Escobar Self - patient is the insured Medical (General) History Medical History History ICD Code Cancer Open Sores Diabetic Hard of Hearing Surgical History Surgery Date(Month/Year) prostate removal 2021
--- OUTSIDE RECORDS SUMMARY | 2024-12-14 09:49 | XMS_ITS | Clinical Summary ---
Author Organization [facility] [employer] Address [address] [place] [address] Care Team Providers Care Filament Welder Name Role Phone Mary Wong RN Unavailable [phone] Elis Millan MD Unavailable [phone] Jovan Colindres MD Primary Care Provider [phone] Source Comments [facility] [employer],non-owned Affiliates and Associated Physician Practices is amultiple site organization consisting of ambulatory clinics and hospital sitesin [place], [place], [place] and [place]. This disclosure is being madepursuant to the Care Everywhere program and may not contain all information available regarding this patient. 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 Gender Identity Not on file Sexual Orientation [...] 1:41 PM CDT Height 185.4 cm (6' 1) 08/03/2013 1:41 PM CDT Body Mass Index [...] - URINE PROTEIN SCREENING 04/21/2024 INFLUENZA VACCINE (#1) 2024 05/04/2013 HEPATITIS B VACCINE Aged Out [...] this topic Medical Devices Implanted Type Area Home Care Physical Therapist Device Identifier Shelf Expiration Date Model / Serial / Lot Floseal 10ml Implanted:Qty : 1 on 07/07/2013 by Ab Panchal MD at [facility] Collagen N/A: Abdomen 07/20/2015 [id number] / / [id number] Procedures Procedure Name Priority Date/Time Associated Diagnosis [...] CLIA certified lab, and not by the [facility] Mine Engineering Manager. The full result should be confirmed by review of the scanned report from the outside CLIA certified lab that performed the test before clinical decisions are rendered based on these results. Exercise caution when tracking results measured by different laboratories that have not been subject to cross validation studies. Valeria Ramires MD LAB - CHEMISTRY ORDERABLES Fi nal Result Performing Organization Address City/[facility]/ZIP Co de Phone Number OTHER LAB * [...] CLIA certified lab, and not by the [facility] Mine Engineering Manager. The full result should be confirmed by [...] Most Recently Relevant to Health Maintenance Insurance [facility] MANAGED MEDICARE ADV Advance Directives * Full Code (Latest Code Status on File) Date Activated Date Inactivated Comments 07/17/2013 5:15 PM 07/21/2013 2:52 PM * Full Code Date Activated Date Inactivated Comments 07/07/2013 8:45 AM 07/08/2013 2:26 PM Care Teams Filament Welder Relationship Specialty Start Date End Date Jovan Colindres MD [address], [address] [place] [address] PCP - General 01/03/22 Mary Wong RN Bridge Gang Worker 07/19/13 Elis Millan MD [address], [address] [place] [address] Endocrinology 08/03/13
--- NOTE | 2024-12-14 09:50 | PC.NURSE ---
César Escobar pts cousin phone number [phone]
[2024-12-14 10:00] LABS: Hematocrit 37.5 % (42.0-52.0); Hemoglobin 12.3 g/dL (14.0-18.0); Immature Granulocyte Percent A 0.6 % (0-0.5); Lymphocytes Absolute Auto 0.79 K/mm3 (0.9-3.2); Mean Corpuscular HGB Conc 32.8 g/dl (32-36); Mean Corpuscular Hemoglobin 25.8 pg (26-34); Mean Corpuscular Volume 78.6 fl (80-100); Nucleated Red Blood Cells Absolute Auto 0.000 K/mm3 (0.0-0.012); Nucleated Red Blood Cells Perc 0.0 % (0.0-0.2); Platelet Count Result 272 k/mm3 (150-375); Red Blood Count 4.77 M/mm3 (4.6-6.20); White Blood Count 11.2 K/mm3 (4.5-10.0)
[2024-12-14] MEDS: MORPHINE SULFATE (*CRX) 4 MG/ML INJ 2 MG IV PUSH (10:21)
[2024-12-14] MEDS: ONDANSETRON INJ 4 MG/2 ML VIAL IV PUSH (10:21)
[2024-12-14] MEDS: SODIUM CHLORIDE 0.9% IV 1,000 ML 999 ML IV CONT ×2 (10:21→13:46)
--- NOTE | 2024-12-14 10:25 | PC.NURSE ---
pt attempted to urinate but was unable to provide sample
--- NOTE | 2024-12-14 10:30 | ED_ITS ---
HPI - Abdominal Pain General Chief Complaint: Abdominal Pain Stated Complaint: abd pain Time Seen by Provider: 12/14/24 09:40 Source: patient Mode of arrival: ambulatory Limitations: no limitations History of Present Illness HPI narrative: Patient is a 74 y/o male who presents to the ED with c/o abd pain. Patient reports he was recently started on Ozempic. Received his 2nd injection last Friday. Began having pain diffusely throughout his abdomen Friday night. Pain became worse yesterday. Reports having diarrhea, nausea, vomiting today. Denies fevers. Has not taken anything for pain. Related Data Home Medications ?Medication ?Instructions ?Recorded ?Confirmed ?Last Taken ?Type enzalutamide 80 mg tablet (Xtandi) 80 mg PO BID Unknown History Allergies Allergy/AdvReac Type Severity Reaction Status Date / Time No Known Allergies Allergy Verified 11/11/24 09:12 Review of Systems 2 Review of Systems: All systems reviewed & are unremarkable except as noted in HPI. All systems reviewed & are unremarkable except as noted in HPI and below PMFSH Past Medical History Medical History Right foot ulcer Acute hypoxemic respiratory failure Chronic sinusitis of both maxillary sinuses Pneumonia due to 2019 novel coronavirus UTI (urinary tract infection) Arthritis Overweight (BMI 25.0-29.9) Cholecystitis Prostate cancer Diabetes Surgical History Surgical History History of laparoscopic cholecystectomy 12/31/2021 laparoscopic cholecystectomy with intraoperative cholangiogram Hx of laparoscopy Diagnostic laparoscopy with lysis of adhesion 11/06/21. H/O prostatectomy Family History Family History Other Diabetes mellitus Social History Social History Smoking status: Never smoker Second hand tobacco smoke exposure: No Alcohol intake: former Substance use: never Do You Feel Safe in your Home?: Yes Lack of Transportation: YES Lack of Food: Sometimes True Current Housing: I Have Housing Concerned About Future Housing: No Difficulty Paying Gas/Electric Bills: No Difficulty Paying for Meds: No Currently Unemployed: No Education: High School Diploma/GED Difficulty w/ Childcare or Family Care: No Living arrangements: alone Spiritual care concerns: No Exam 2 Narrative: GENERAL: Well appearing, well-nourished, non-toxic, in no acute distress. HEAD: Normocephalic, atraumatic. RESPIRATORY: Airway patent, respirations nonlabored. Clear to auscultation bilaterally, no rales, rhonchi, wheezing. CARDIOVASCULAR: Borderline tachycardic with regular rhythm without murmurs, rubs, or gallops. Peripheral pulses intact ABDOMINAL: Soft, mild diffuse tenderness throughout abdomen, no significant focal tenderness, nondistended. Normoactive BS. MUSCULOSKELETAL: Moves all extremities. No gross deformities. SKIN: Warm, dry, normal color. NEURO: A&O X3. Speech clear. Cranial nerves II-XII grossly intact. Steady gait. No ataxic movements. PSYCHIATRIC: Appropriate mood and affect. Normal interaction. Course Vital Signs Vital signs: Vital Signs Temperature 98.3 F 12/14/24 09:36 Pulse Rate 118 H 12/14/24 09:36 Respiratory Rate 20 12/14/24 09:36 Blood Pressure 141/83 H 12/14/24 09:36 Pulse Oximetry 99 12/14/24 09:36 Oxygen Delivery Room Air 12/14/24 09:36 Temperature 98.3 F 12/14/24 09:36 Pulse Rate 108 H 12/14/24 13:46 Respiratory Rate 20 12/14/24 13:46 Blood Pressure 138/97 H 12/14/24 13:46 Pulse Oximetry 100 12/14/24 13:46 Oxygen Delivery Room Air 12/14/24 09:36 MDM - Abdominal Pain MDM Narrative Medical decision making narrative: Patient presented to ED with abdominal pain, associated with N/V/D. Recently started on ozempic. VSS upon arrival. Patient borderline tachycardic. Sinus rhythm. EKG with NSR, w/o concerning ST changes. CBC with white blood cell count of 11.2. H&H is stable. Consistent with previous records. CMP fairly unremarkable. Blood sugar mildly elevated to 265. Normal LFTs and lipase. UA with moderate amount of microscopic hematuria, no signs of infection. Does show 1+ ketones. CT scan of abdomen/pelvis was obtained and showing left renal mass, measuring 5.2 cm, consistent with renal cell carcinoma until proven otherwise. Also showing moderate left hydroureteronephrosis, possibly secondary to an obstructing UVJ mass. Otherwise no acute intra-abdominal findings. Discussed lab and imaging findings with patient. Discussed possibility of medication side effect causing GI upset/symptoms with ozempic use. Discussed urologic findings. Patient does admit to having difficulty urinating over the past few weeks. Denies gross hematuria. Bladder scan was performed in greater than 700 mL and noted in bladder. Patient denied feeling the urge to urinate. Delarosa catheter was placed. Will discuss with urology. Discussed case with Dr. An, urology, agreed with plan for Delarosa catheter, will follow-up with patient regarding renal mass and possible UVJ obstruction in office on Friday. Will have office call patient to make appointment. Discussed these recommendations with patient. He is in agreement this plan. Feels comfortable going home with Delarosa catheter in place. He otherwise feels improved with supportive therapy in the ED. I did discuss likely GI side effects related to Ozempic use and advised patient to follow-up with PCP regarding this. Patient given strict return precautions. He is in agreement with plan. Discharged in stable condition. Medical Records Attestation: I reviewed the patient's medical records. Lab Data Attestation: I reviewed the patient's lab results. 12/14/24 09:49 12/14/24 11:03 Labs: Lab Results 12/14/24 12/14/24 12/14/24 Range/Units 09:43 09:49 11:03 WBC 11.2 H (4.5-10.0) K/mm3 RBC 4.77 (4.6-6.20) M/mm3 Hgb 12.3 L (14.0-18.0) g/dL Hct 37.5 L (42.0-52.0) % MCV 78.6 L (80-100) fl MCH 25.8 L (26-34) pg MCHC 32.8 (32-36) g/dl RDW 13.4 (11.5-14.5) % Plt Count 272 (150-375) k/mm3 MPV 10.0 (7.4-10.4) fl Immature Gran % (Auto) 0.6 H (0-0.5) % Neut % (Auto) 82.6 H (45.5-73.1) % Lymph % (Auto) 7.1 L (18.3-44.2) % [place] % (Auto) 9.5 H (2.6-8.5) % Eos % (Auto) 0.0 (0-4.4) % Baso % (Auto) 0.2 (0.2-1.2) % Lymph # (Auto) 0.79 L (0.9-3.2) K/mm3 [place] # (Auto) 1.1 H (0.1-0.6) K/mm3 Eos # (Auto) 0.0 (0-0.3) K/mm3 Baso # (Auto) 0.0 (0.0-0.1) K/mm3 Abs Immat Gran (auto) 0.07 H (0.00-0.031) K/mm3 Absolute Neuts (auto) 9.2 H (1.3-6.7) K/mm3 Absolute Nucleated RBC 0.000 (0.0-0.012) K/mm3 Nucleated RBC % 0.0 (0.0-0.2) % Sodium 138 (137-145) mmol/L Potassium 3.7 (3.4-5.0) mmol/L Chloride 105 (98-107) mmol/L Carbon Dioxide 21 L (22-30) mmol/L Anion Gap 12 (4-12) mmol/L BUN 19 (9-20) mg/dL Creatinine 1.00 (0.7-1.3) mg/dL Estim Creat Clear Calc 65 ml/min Estimated GFR > 60 (59 - ) Glucose 265 H (65-110) mg/dL POC Capillary Glucose 268 H (65-105) mg/dl Calcium 8.6 (8.4-10.2) mg/dL Total Bilirubin 0.6 (0.2-1.3) mg/dL AST 30 (17-59) U/L ALT 23 (6-50) U/L Alkaline Phosphatase 92 (38-126) U/L Total Protein 7.6 (6.3-8.2) g/dL Albumin 3.6 (3.5-5.1) g/dL Lipase 22 L (23-300) U/L Urine Color (Yellow) Urine Appearance (Clear) Urine pH (5.0-9.0) Ur Specific [place] (1.001-1.035) Urine Protein (Negative) mg/dL Urine Glucose (UA) (Negative) mg/dL Urine Ketones (Negative) mg/dL Ur Blood (Man) (Negative) Urine Nitrate (Negative) Urine Bilirubin (Negative) Urine Urobilinogen (<2.0) mg/dL Leukocyte Esterase Rfl (Negative) VANESSA/UL Urine RBC (0-2) /hpf Urine WBC (0-3) /hpf Ur Squamous Epith Cells (Few) /hpf Urine Bacteria /hpf Urine Casts 12/14/24 Range/Units 12:10 WBC (4.5-10.0) K/mm3 RBC (4.6-6.20) M/mm3 Hgb (14.0-18.0) g/dL Hct (42.0-52.0) % MCV (80-100) fl MCH (26-34) pg MCHC (32-36) g/dl RDW (11.5-14.5) % Plt Count (150-375) k/mm3 MPV (7.4-10.4) fl Immature Gran % (Auto) (0-0.5) % Neut % (Auto) (45.5-73.1) % Lymph % (Auto) (18.3-44.2) % [place] % (Auto) (2.6-8.5) % Eos % (Auto) (0-4.4) % Baso % (Auto) (0.2-1.2) % Lymph # (Auto) (0.9-3.2) K/mm3 [place] # (Auto) (0.1-0.6) K/mm3 Eos # (Auto) (0-0.3) K/mm3 Baso # (Auto) (0.0-0.1) K/mm3 Abs Immat Gran (auto) (0.00-0.031) K/mm3 Absolute Neuts (auto) (1.3-6.7) K/mm3 Absolute Nucleated RBC (0.0-0.012) K/mm3 Nucleated RBC % (0.0-0.2) % Sodium (137-145) mmol/L Potassium (3.4-5.0) mmol/L Chloride (98-107) mmol/L Carbon Dioxide (22-30) mmol/L Anion Gap (4-12) mmol/L BUN (9-20) mg/dL Creatinine (0.7-1.3) mg/dL Estim Creat Clear Calc ml/min Estimated GFR (59 - ) Glucose (65-110) mg/dL POC Capillary Glucose (65-105) mg/dl Calcium (8.4-10.2) mg/dL Total Bilirubin (0.2-1.3) mg/dL AST (17-59) U/L ALT (6-50) U/L Alkaline Phosphatase (38-126) U/L Total Protein (6.3-8.2) g/dL Albumin (3.5-5.1) g/dL Lipase (23-300) U/L Urine Color Yellow (Yellow) Urine Appearance Clear (Clear) Urine pH 7.0 (5.0-9.0) Ur Specific [place] 1.012 (1.001-1.035) Urine Protein 2+ H (Negative) mg/dL Urine Glucose (UA) 2+ H (Negative) mg/dL Urine Ketones 1+ H (Negative) mg/dL Ur Blood (Man) 2+ H (Negative) Urine Nitrate Negative (Negative) Urine Bilirubin Negative (Negative) Urine Urobilinogen 0.2 (<2.0) mg/dL Leukocyte Esterase Rfl Negative (Negative) VANESSA/UL Urine RBC >100 H (0-2) /hpf Urine WBC 0-5 (0-3) /hpf Ur Squamous Epith Cells None seen (Few) /hpf Urine Bacteria None seen /hpf Urine Casts 0-2 Imaging Data Attestation: I personally reviewed and interpreted this imaging study as follows: Radiologist's impression: ITS Impressions Abdomen/Pelvis CT 12/14/24 12:28 IMPRESSION: 1. New left renal mass measuring 5.2 cm, consistent with renal cell carcinoma until proven otherwise. 2: Mild-moderate left hydroureteronephrosis to the UVJ, possibly secondary to obstructing UVJ mass. Recommend urological consultation. ITS Impressions Abdomen/Pelvis CT 12/14/24 12:28 IMPRESSION: 1. New left renal mass measuring 5.2 cm, consistent with renal cell carcinoma until proven otherwise. 2: Mild-moderate left hydroureteronephrosis to the UVJ, possibly secondary to obstructing UVJ mass. Recommend urological consultation. ECG Data EKG #1: Attestation: I personally reviewed and interpreted this ECG as follows: ECG completion date: 12/14/24 ECG completion time: 11:58 tachycardia (106), sinus rhythm and non-specific ST changes Discharge Plan Discharge Clinical Impression: Left renal mass, Hydroureteronephrosis, Acute urinary retention, Gastroenteritis Patient Disposition: Home Condition: Stable Instructions: Antibiotic Form, Urinary Retention in Men (ED), Delarosa Catheter Placement and Care (ED), Gastroenteritis (ED) Additional Instructions: It is recommended you follow-up with urology in office this week for further evaluation of kidney mass and difficulty urinating. Their office should be contacting you to make an appointment for Friday. Wear Delarosa catheter until seen by Urology. Recommend close follow-up as well with your primary care doctor to discuss stomach upset/irritation related to Ozempic use. Call office to make appointment. You may take Tylenol, Bentyl as needed for abdominal discomfort. Zofran as needed for nausea. Recommend clear liquids or bland diet until symptoms improve, such as bananas, rice, applesauce, toast, or crackers. Follow up with your primary care doctor for further evaluation. Return to the ED if you experience worsening or severe symptoms, unable to keep down food or drink, severe pain, fevers, rectal bleeding, vomiting blood, or any other symptoms of concern. Return to the ED if you experience worsening or severe abdominal pain, unable to keep down food or drink, persistent fevers, blood in urine, catheter not draining, or any other symptoms of concern. Patient Language: Comoran Prescriptions: New dicyclomine 20 mg tablet 20 mg PO TID PRN (Reason: Abdominal Discomfort) Qty: 15 0RF ondansetron 4 mg tablet,disintegrating 4 mg PO Q8H PRN (Reason: nausea and vomiting) Qty: 15 0RF No Action (DME) Dexcom G7 Chief Radiologic Technologist Misc See Rx Instructions .Route Qty: 1 3RF Rx Instructions: As directed cholecalciferol (vitamin D3) 1,250 mcg (50,000 unit) capsule 1,250 mcg PO WEEKLY Qty: 14 0RF Baqsimi 3 mg/actuation spray,non-aerosol 3 mg intranasal ONCE Qty: 2 0RF Rx Instructions: as a single dose glucose 4 gram tablet,chewable 16 g PO Q15M PRN (Reason: hypoglycemia) Qty: 360 0RF Rx Instructions: until symptoms of low blood sugar are controlled rosuvastatin [Crestor] 10 mg tablet 10 mg PO DAILY Qty: 90 2RF Xtandi 80 mg tablet 80 mg PO BID (DME) Dexcom G7 Sensor Device See Rx Instructions .Route Qty: 9 12RF Rx Instructions: once every 10 days Ozempic 1 mg/dose (4 mg/3 mL) pen injector 1 mg subcut WEEKLY Qty: 9 0RF insulin glargine [Lantus Solostar U-100 Insulin] 100 unit/mL (3 mL) insulin pen 30 unit subcut DAILY Qty: 30 0RF empagliflozin 25 mg tablet 25 mg PO DAILY Qty: 90 0RF gabapentin 100 mg capsule See Rx Instructions .ROUTE .COMPLEX Qty: 270 2RF Dose Instruction: TAKE 1 CAPSULE BY MOUTH 3 TIMES DAILY Rx Instructions: TAKE 1 CAPSULE BY MOUTH 3 TIMES DAILY (DME) insulin syringe-needle U-100 [CareTouch Insulin Syringe] 0.3 mL 31 gauge x 5/16 syringe See Rx Instructions .Route Qty: 100 3RF Rx Instructions: To inject insulin BID (DME) pen needle, diabetic 31 gauge x 3/16 needle See Rx Instructions .Route Qty: 600 0RF Rx Instructions: Use two times a day Follow-up/Referrals: Jovan Ram MD [Primary Care Provider, Internal Medicine] Kameron An MD [Physician, Urology] Referral Note: UROLOGY Time of Disposition: 14:16
--- NOTE | 2024-12-14 10:38 | ECG_ITS ---
Test Date: 2024-12-14 11:58:13 Measurements Intervals [place] Rate: 106 P: 49 [place]: 170 QRS: -1 QRSD: 98 T: 38 QT: 332 QTc: 442 Interpretive Statements SINUS TACHYCARDIA BORDERLINE T WAVE ABNORMALITY- INFERIOR LEADS ABNORMAL ECG No previous ECG available for comparison Electronically Signed On 12-14-2024 12:17:21 CDT by [place] D.O.
[2024-12-14 11:55] LABS: Alanine Aminotransferase 23 U/L (6-50); Albumin Level 3.6 g/dL (3.5-5.1); Alkaline Phosphatase 92 U/L (38-126); Anion Gap 12 mmol/L (4-12); Aspartate Amino Transferase 30 U/L (17-59); Bilirubin,Total 0.6 mg/dL (0.2-1.3); Blood Urea Nitrogen 19 mg/dL (9-20); Calcium 8.6 mg/dL (8.4-10.2); Carbon Dioxide 21 mmol/L (22-30); Chloride 105 mmol/L (98-107); Estimated CRCL calculation 65 ml/min; Estimated Glomerular Filt Rate > 60; Glucose 265 mg/dL (65-110); Lipase 22 U/L (23-300); Potassium 3.7 mmol/L (3.4-5.0); Sodium 138 mmol/L (137-145); Total Protein 7.6 g/dL (6.3-8.2)
[2024-12-14 12:18] LABS: Add Urine Microscopic? YES; Appearance Urine Clear (Clear); Glucose Urine UA 2+ mg/dL (Negative); Leukocyte Esterase Ur Negative LEU/UL (Negative); Nitrate Urine Negative (Negative); Non Pathogenic Casts 0-2; Specific Grav Ur 1.012 (1.001-1.035)
== END 2024-12-14 14:50 | disposition home or self-care (01) ==
PROVIDERS: Emergency Provider Physician Assistant; PCP Emergency Medicine
DX: K52.9 Noninfective gastroenteritis and colitis, unspecified (principal); R33.9 Retention of urine, unspecified; N13.30 Unspecified hydronephrosis; N28.89 Other specified disorders of kidney and ureter; R00.0 Tachycardia, unspecified
CPT/HCPCS: 36415; 51702; 74177; 80053; 81001; 82948; 83690; 85025; 93005; 96361; 96374; 96375; 99284; J2270; J2405; J7030; Q9967

== ENCOUNTER 2025-01-06 00:35 | Day surgery (SDC) | payer MEDICARE, SELFPAY ==
--- OUTSIDE RECORDS SUMMARY | 2019-02-05 07:40 | XMS_ITS | Continuity of Care Document ---
Author Organization [facility] Address [address] [place] [address] Phone Care Team Providers Care Fuel Agent Name Role Phone Valeria Ramires MD Unavailable Unavailable Allergies, Adverse Reactions, Alerts Substance Reaction Status Criticality No Known Allergies Active No Inform ation Medications Medication Instructions Dosage Effective Dates (start - stop) Status Comments gabapentin 300 mg capsule TAKE 1 TABLET BY ORAL ROUTE ON DAY 1 AT BEDTIME, TAKE 2 TABLETS DAY 2, THEN TAKE 3X/DAY FOR NEUROPATHY - Active BD Insulin Pen Needle UF Mini 31 gauge x 3/16 inject by subcutaneous route once every day - Active BD Insulin Syringe Ultra-Fine 1 mL 29 gauge x 1/2 inject 1 by Subcutaneous route 1 - 2 times every day 1 - Active metformin 1,000 mg tablet take 1 tablet by oral route 2 times every day with morning and evening meals 1000 MG - Active IKOTECHTouch Delica Lancets 33 gauge to test twice a day as directed - Active Toujeo SoloStar 300 unit/mL (1.5 mL) subcutaneous insulin pen 40 units daily - Active OneTouch Ultra Test strips Test blood sugar 3-4 times/day as directed - Active OneTouch Ultra2 kit use as directed - Active atorvastatin 40 mg tablet take 1 tablet by oral route every day 40 MG - Active ADULT LOW DOSE ASA 81 MG TAB 1 QD-daily - Active Vitamin B-12 500 mcg tablet Take 2 tablets by mouth once daily - Active Advance Directives Directive Yes / No Effective Date File Name No Information Encounters Encounter Description Practice Location Reason(s) For Visit Diagnoses Date Provider Providers Copied on Encounter [facility], [address], [place], [place], [address] , [place] tel: [phone] Fletcher No Information 9 Apollolizbeth Valeria. [address], [address], [place], [place], [address], [place]. tel:[phone] [facility], [address], [place], [place], [address] , [place] tel: [phone] Fletcher No Information 7 Verito Buck. [address], [place], [place], [address], [place]. tel:[phone] [facility], [address], [place], [place], [address] , [place] tel: [phone] Fletcher Anemia, unspecified type 7 Apollolizbeth Valeria. [address], [address], [place], [place], [address], [place]. tel:[phone] [facility], [address], [place], [place], [address] , [place] tel: [phone] Fletcher Type 2 diabetes mellitus with peripheral neuropathyOther hyperlipidemiaTac hycardiaElevated PSAHistory of prostate cancer 7 Verito Buck. [address], [place], [place], [address], [place]. tel:[phone] Referring Provider: Valeria Ramires, [address], [place], [address] . tel:[phone] [facility] Fetch [facility], [address], [place], [place], [address] , [place] tel: [phone] Fletcher Type 2 diabetes mellitus with peripheral neuropathyTachyca rdiaElevated PSA 7 Verito Buck. [address], [place], [place], [address], [place]. tel:[phone] Referring Provider: Valeria Ramires, [address] [place] [address] [address], [place], [address] . tel:[phone] [facility], [address], [place], [place], [address] , [place] tel: [phone] Fletcher Type 2 diabetes mellitus with peripheral neuropathyHistory of prostate cancerOther [facility] health insurance with inadequate coverage of health expenses [facility]. [address], [place], [place], [address], [place]. tel:[phone] Referring Provider: Valeria Ramires, [address] [place] [address] [address], [place], [address] . tel:[phone] [facility], [address], [place], [place], [address] , [place] tel: [phone] Fletcher Encounter for immunizationType 2 diabetes mellitus with peripheral neuropathyHistory of prostate cancerEncounter for screening for malignant neoplasm of prostate [facility]. [address] [place] [address], [address], [place], [place], [address], [place]. tel:[phone] Referring Provider: Valeria Ramires, [address] [place] [address] [address], [place], [address] . tel:[phone] [facility], [address], [place], [place], [address] , [place] tel: [phone] Fletcher Diabetes Mellitus, Adult Onset, UncontrolledProst ate cancerElevated prostate specific antigen (psa) Keyla Shaw. [address] [place] [address], [address], [place], [place], [address], [place]. tel:[phone] Referring Provider: Valeria Ramires, [address] [place] [address] [address], [place], [address] . tel:[phone] [facility], [address], [place], [place], [address] , [place] tel: [phone] Fletcher AnemiaDiabetes Mellitus, Adult Onset, UncontrolledOther and unspecified hyperlipidemiaObe sityPersonal history of malignant neoplasm of prostate 4 Shiela Bauer. [address], [place], [place], [address], [place]. tel:[phone] [facility], [address], [place], [place], [address] , [place] tel: [phone] Fletcher Type II diabetes mellitusOther and unspecified hyperlipidemiaAne miaObesityPersona l history of malignant neoplasm of prostate 4 Keyla Shaw. [address], [address], [place], [place], [address], [place]. tel:[phone] Referring Provider: Valeria Ramires, [facility] [address], [place], [address] . tel:[phone] [facility], [address], [place], [place], [address] , [place] tel: [phone] [facility] Prostate cancer 4 Ansley Berger. [address], [address], [place], [address], . tel:[phone] Referring Provider: Valeria Ramires, [facility] [address], [place], [address] . tel:[phone] [facility], [address], [place], [place], [address] , [place] tel: [phone] [facility] Prostate cancer 4 Ansley Berger. [address], [place], [place], [facility], . tel:[phone] Referring Provider: Valeria Ramires [facility] [employer] [address], [place], [address] . tel:[phone] [facility], [address], [place], [place], [address] , tel: [phone] Fletcher Diabetes Mellitus, Adult Onset, Uncontrolled 4 Shiela Bauer. [address], [place], [place], [address], [place]. tel:[phone] Referring Provider: Valeria Ramires, [address] [place] [address] [address], [place], [address] . tel:[phone] [facility], [address], [place], [place], [address] , tel: [phone] Fletcher Diabetes Mellitus, Adult Onset, UncontrolledOther and unspecified hyperlipidemiaPer haim history of malignant neoplasm of prostateAnemiaObe sityAbnormal LPP-ja-yazsdvsikw ratio May-0 9-201 4 Keyla Shaw. [address] [employer], [address], [place], [place], [address], [place]. tel:[phone] Referring Provider: Valeria Ramires, [address] [place] [address] [address], [place], [address] . tel:[phone] [facility], [address], [place], [place], [address] , tel: [phone] [facility] Malignant Neoplasm, Prostate Apr-3 0-201 4 [facility]. [address], [facility] [address], [place], [facility], . tel:[phone] Referring Provider: Valeria Ramires, [address] [place] [address] [address], [place], [address] . tel:[phone] [facility], [address], [place], [place], [address] , [place] tel: [phone] [facility] Malignant Neoplasm, Prostate Apr-1 6-201 4 [facility]. [address], [place], [address], . tel:[phone] Referring Provider: Valeria Ramires, [facility] [address], [place], [address] . tel:[phone] [facility], [address], [place], [place], [address] , tel: [phone] Fletcher Diabetes Mellitus Type 2, Uncomplicated Apr-1 1-201 4 Baylee Radford. [facility] [address], [place], [place], [address], [place]. tel:[phone] [facility] Fetch [facility], [address], [place], [place], [address] , [place] tel: [phone] Fletcher Loss of appetiteDiabetes Mellitus, Adult Onset, UncontrolledOther and unspecified hyperlipidemiaHis tory of prostate cancer 4 Baylee Radford. [address], [address], [place], [place], [address], [place]. tel:[phone] Referring Provider: Valeria Ramires, [address] [place] [address] [address], [place], [address] . tel:[phone] [facility], [address], [place], [place], [address] , [place] tel: [phone] Fletcher Diabetes Mellitus, Adult Onset, UncontrolledOther and unspecified hyperlipidemiaObe sityMalignant Neoplasm, ProstateOther specified pre-operative examination 4 Keyla Shaw. [address] [place] [address], [address], [place], [place], [address], [place]. tel:[phone] Referring Provider: Valeria Ramires, [address] [place] [address] [address], [place], [address] . tel:[phone] [facility], [address], [place], [place], [address] , [place] tel: [phone] [facility] Prostate cancer 4 [facility]. [address], [place], [address], [place]. tel:[phone] Referring Provider: Valeria Ramires, [address] [place] [address] [address], [place], [address] . tel:[phone] [facility], [address], [place], [address] , [place] tel: [phone] [facility] Prostate cancer 4 Ansley Berger. [address], [place], [address], [place]. tel:[phone] [facility], [address], [place], [place], [address] , tel: [phone] [facility] Elevated prostate specific antigen (psa) 4 [facility]. [address], [place], [address], [place]. tel:[phone] Referring Provider: Valeria Ramires, [address] [place] [address] [address], [place], [address] . tel:[phone] [facility], [address], [place], [place], [address] , tel: [phone] [facility] Elevated prostate specific antigen (psa) 4 [facility]. [address], [address], [place], [address], [place]. tel:[phone] Referring Provider: Valeria Ramires, [address] [place] [address], [place], [address] . tel:[phone] [facility], [address], [place], [place], [address] , [place] tel: [phone] Fletcher Diabetes mellitus without mention of complication,Elev ated PSAOther and unspecified hyperlipidemiaObe sity 4 Keyla Shaw. [address] [place] [address], [facility] [address], [place], [place], [address], [place]. tel:[phone] Referring Provider: Valeria Ramires, [address] [place] [address] [address], [place], [address] . tel:[phone] [facility], [address], [place], [place], [address] , [place] tel: [phone] Fletcher Diabetes Mellitus, Adult Onset, UncontrolledEleva piper prostate specific antigen (psa)Other and unspecified hyperlipidemia 4 Verito Buck. [address] [place] [address], [facility] [address], [place], [place], [address], [place]. tel:[phone] Referring Provider: Valeria Ramires, [address] [place] [address], [place], [address] . tel:[phone] [facility], [address], [place], [place], [address] , [place] tel: [phone] Fletcher Diabetes mellitus without mention of complication,Hype rlipidemiaSpecial screening for malignant neoplasm of prosta Dec-0 9-201 3 [facility] Cielo. [address] [facility] [address], [place], [place], [address], . tel:[phone] Referring Provider: Valeria Ramires, [address] [facility] [address], [place], [address] . tel:[phone] [facility], [address], [place], [place], [address] , tel: [phone] Fletcher Cellulitis and abscess of buttock Dec-1 0-201 2 [facility]. [address] [address], [place], [place], [address], . tel:[phone] Referring Provider: Valeria Ramires, [address] [address], [place], [address] . tel:[phone] [facility], [address], [place], [place], [address] , tel: [phone] Fletcher Cellulitis and abscess of buttock Dec-0 8-201 2 Jaclyn Mendoza. [address] [address], [place], [place], [address], . [phone] Referring Provider: Valeria Ramires, [address] [place] [address], [place], [address] . tel:[phone] [facility], [address], [place], [place], [address] , tel: [phone] Fletcher Diabetes mellitus without mention of complication,Absc ess of cellulitis of buttockHyperlipid emiaElevated PSAAnemiaNEED FOR PROPHYLACTIC VACCINATION WITH COMBINED DIPHTHERIA-TETANU S-PERTUSSIS (DTP) (DTAP) VACCINENeed for prophylactic vaccination and inoculation against streptococcus pneumoniae [pneumococcus]Nee d for prophylactic vaccination and inoculation against viralhepatitisNEE D FOR PROPHYLACTIC VACCINATION AND INOCULATION, INFLUENZA Dec-0 6-201 2 [facility]. [address] [facility] [address], [place], [place], [address], [place]. tel:[phone] Referring Provider: Valeria Ramires, [address] [place] [address], [place], [address] . tel:[phone] [facility], [address], [place], [address] , [place] tel: [phone] Fletcher Diabetes mellitus without mention of complication, type II or unspecified type, not stated as uncontrolledOther and unspecified hyperlipidemiaScr eening for malignant neoplasms of the prostateAbscess of cellulitis of buttockAbnormal laboratory test 2 [facility]ar[facility] Cielo. [address] [place] [address] [address], [place], [place], [address], [place]. tel:[phone] Referring Provider: Valeria Ramires, [address] [place] [address], [place], [address] . tel:[phone] [facility], [address], [place], [place], [address] , [place] tel: [phone] Fletcher SPECIAL SCREENING FOR MALIGNANT NEOPLASMS, OTHER SITES 2 Sewing Joan. [address] [place] [address], [place], [place], [address], [place]. [phone] [facility], [address], [place], [address] , [place] tel: [phone] Fletcher No Information 1 Keyla Shaw. [address] [place] [address], [address] [address], [place], [place], [address], [place]. [phone] [facility], [address], [place], [place], [address] , [place] tel: [phone] Fletcher HYPERLIPIDEMIA NEC/NOS 1 Willian Atwood. [address] [place] [address], [facility] [address], [place], [place], [address]. tel:[phone] [facility], [address], [place], [address] , [place] tel: [phone] Fletcher DMII WO CMP NT ST UNCNTR 1 Willian Atwood. [address], [place], [place], [address]. tel:[phone] [facility], [address], [place], [place], [address] , [place] tel: [phone] Fletcher BENIGN REINA SKIN EAR 1 Keyla Shaw. [address], [address], [place], [place], [address], [place]. tel:[phone] Family History Family Member Type Diagnosis Age At Onset No Information Immunizations Vaccine Date Status Comments Pneumococcal conjugate PCV 13 administere d Source: New Immunization Record Flu (split) (3 yrs or older) administered Source: New Immunization Record Hep B (adult, 2 dose) administered Source : New Immunization Record Flulaval administered Note: [facility] [address] -115-10 ; Source: New Immunization Record Tdap administered Note: [facility] [address] -400-10 ; Source: New Immunization Record Pneumo (2 yrs or older) (PPV23) administered Note: [facility] 1477-2264- 01 ; Source: New Immunization Record Hep B (adult) administered Note: [facility] 0006 -4739-00 ; Source: New Immunization Record Payers Payer name Insurance type Covered republican ID Authoriza tion(s) MEDICARE [id number] MEDICARE [id number] Social History Type Description Quantity Date Captured Comments Sex Male Smoking Status No Information Chief Complaint And Reason For Visit No Information Reason For Referral Reason For Referral No Information History Of Present Illness Encounter Date Complaint History Of Prese nt Illness No Information Functional Status Date Functional Assessmen t No Information Instructions Date Instruction Additional Infor mation No Information Assessments Type Assessment Date No Information Patient Care Teams Name Effective Dates (start - stop) Status Members No Information
[2024-12-28 10:59] VITALS: BMI 26.7
--- NOTE | 2024-12-28 11:11 | PC.NURSE ---
Report to the Outpatient Waiting Room, entrance under the green pavilion located off [facility], at time _12:45pm on date __01/06/25 . Planned Procedure Time: ___2:45pm .? Time changes happen often and if your time is changed the preop area will call you the afternoon before. - You and your visitor will be asked to self-screen and do not enter if you have any COVID symptoms. Please call surgeon if you need to reschedule. - A mask is optional within the hospital at this time. Patients may have clear liquids (water, carbonated beverages, clear teas, apple juice) until 3 hours prior to surgery with a maximum of 20 ounces. - No food from midnight until time of surgery and no smoking, or chewing tobacco (or any form of nicotine). No chewing gum, candy or mints. (11:45am) Take only the following medications with a SIP of water on the morning of surgery: 1/2 am Insulin and Gabapentin if needed DO NOT STOP ANY OF YOUR OTHER PRESCRIPTION MEDICATIONS PRIOR TO SURGERY EXCEPT THE FOLLOWING Hold all vitamins and supplements for 3 days per anesthesiologist. Medications to discontinue per physician NONE Date to take last dose NONE Please no make-up, nail paraguayan, hairspray, perfume, deodorant, or body powder the day of surgery.? No jewelry (including any body piercings) or valuables the day of surgery, leave them at home.? Please take a shower or bath the night before, or the morning of, surgery with an antibacterial soap.? Wear comfortable, loose fitting clothing.? - Jewelry must be removed prior to entering the operating room.? Rings and piercings that are not removed may be cut off. - The hospital will not accept responsibility for valuables.? - Please leave all valuables, including medications, at home the day of surgery. If you are going home after surgery, a licensed customer service driver must drive you home.? - NO public transportation without another adult if you receive anesthesia. - We recommend that an adult stay with you for 24 hours following discharge. - We also recommend that you do not drive, make important decision, drink alcoholic beverages, or take any drugs that were not prescribed by your health care provider for at least 24 hours after your discharge time. Follow any additional instructions given to you from your surgeon. Telephone instructions given to ___Cousin Onur and asked if any additional questions and then verbalized understanding. Patient advised to call surgeon office or pre surgery nurse liaison [phone] if any additional questions.
--- NOTE | ~2025-01-06 | XR_ITS ---
EXAMINATION: XR retrograde pyelogram LT DATE: 01/06/2025 14:51 INDICATION: Left retrograde pyelogram TECHNIQUE: 48 fluoroscopic images of the abdomen and pelvis were obtained during procedure performed by Dr. An. Radiologist was not present for the imaging or procedure. The amount of fluoroscopy time used during this procedure was 0.4 minutes. Total DAP was 0.551 mGym^2. COMPARISON: CT dated 12/14/2024 FINDINGS: Cannulation and retrograde contrast injection into the left ureter demonstrates mild left hydronephrosis without evident obstructing stone or mass. Is left ureter appears normal with no filling defects, fixed strictures or urothelial irregularities. IMPRESSION: 1. Mild left hydronephrosis but no evident obstructing stones, strictures or urothelial irregularities at the left ureter or renal collecting system. See procedure note for further detail. Reviewed, dictated and finalized at location A. IMPRESSION: 1. Mild left hydronephrosis but no evident obstructing stones, strictures or ur othelial irregularities at the left ureter or renal collecting system. See proc edure note for further detail.
--- OUTSIDE RECORDS SUMMARY | 2025-01-06 00:38 | XMS_ITS | Clinical Summary ---
Author Organization [facility] Address [address] [place] [address] Care Team Providers Care Logistics Analyst Name Role Phone Mary Wong RN Unavailable [phone] Elis Millan MD Unavailable [phone] Jovan Colindres MD Primary Care Provider [phone] Source Comments [facility],non-owned Affiliates and Associated Physician Practices is amultiple site organization consisting of ambulatory clinics and hospital sitesin [place], [place], [place] and [place]. This disclosure is being madepursuant to the Care Everywhere program and may not contain all information available regarding this patient. 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 Gender Identity Not on file Sexual Orientation [...] 07/08/2014 07/08/2013 DIABETES-SERUM CREATININE 07/29/20142013, 07/18/2013, 07/17/2013 DEPRESSION SCREENING 04/21/2024 DIABETES - URINE PROTEIN SCREENING 04/21/2024 COVID-19 VACCINE (1 - 2023-2 5 season) 2024 INFLUENZA VACCINE (#1) 2024 05/04/2013 HEPATITIS B [...] this topic Medical Devices Implanted Type Area Custom Feed Mill Operator Helper Device Identifier Shelf Expiration Date Model / Serial / Lot Floseal 10ml Implanted:Qty : 1 on 07/07/2013 by Ab Panchal MD at [facility] Collagen N/A: Abdomen 07/20/2015 [id number] / / [id number] Procedures Procedure Name Priority Date/Time Associated Diagnosis [...] CLIA certified lab, and not by the [facility] Founder Ceo & President. The full result should be confirmed by review of the scanned report from the outside CLIA certified lab that performed the test before clinical decisions are rendered based on these results. Exercise caution when tracking results measured by different laboratories that have not been subject to cross validation studies. Valeria Ramires MD LAB - CHEMISTRY ORDERABLES Fi nal Result Performing Organization Address City/[facility]/ZIP Co de Phone Number OTHER LAB [...] CLIA certified lab, and not by the [facility] Founder Ceo & President. The full result should be confirmed by [...] Most Recently Relevant to Health Maintenance Insurance [facility] MANAGED MEDICARE ADV Advance Directives * Full Code (Latest Code Status on File) Date Activated Date Inactivated Comments 07/17/2013 5:15 PM 07/21/2013 2:52 PM * Full Code Date Activated Date Inactivated Comments 07/07/2013 8:45 AM 07/08/2013 2:26 PM Care Teams Logistics Analyst Relationship Specialty Start Date End Date Jovan Colindres MD [address], [address] [place] [address] PCP - General 01/03/22 Mary Wong RN Host/Hostess 07/19/13 Elis Millan MD [address], [address] [place] [address] Endocrinology 08/03/13
--- NOTE | 2025-01-06 05:57 | WPDHPUPDATE1 ---
History and Physical Update Update Date/Time: 01/06/25 05:57 History and Physical has been reviewed, including an updated exam of the patient. There are NO changes in the patient's condition. Risks, benefits, and alternatives have been discussed and questions answered. Patient agrees to proceed with procedure.
[2025-01-06 12:19] VITALS: BMI 26.5
--- NOTE | 2025-01-06 12:56 | P.PNAN_ITS ---
Anes - Initial Pre Proc Eval Procedure: Operation Date: 01/06/25 14:15 Proposed Procedures p Cystoscopy, Left Retrograde Pyelography, Left Ureteroscopy, Possible Biopsy of Renal Pelvis - Kameron An MD Date/Time: 01/06/25 12:56 Surgeon: Kameron An MD Pre Op Diagnosis: prostate CA, left renal mass, hydronephrosis Patient Data Age: 74 Gender: M Height: 1.85 m Weight: 92 kg Allergies Allergy/AdvReac Type Severity Reaction Status Date / Time No Known Allergies Allergy Verified 12/21/24 13:18 Home Medications ?Medication ?Instructions ?Recorded ?Confirmed ?Type blood-glucose,surveying crew stake runner,cont #1 ea 12/29/23 12/28/24 Rx (Dexcom G7 Supervisor Evaporator) glucose 4 gram chewable tablet 16 g (4 x 4 gram) PO Q1 5M PRN 08/27/24 12/28/24 Rx hypoglycemia #360 tabs rosuvastatin 10 mg tablet (Crestor) 10 mg PO DAILY #90 tabs 08/27/24 12/28/24 Rx insulin syringe-needle U-100 0.3 #100 ea 09/03/2401/13 Rx mL 31 gauge x 5/16 (CareTouch Insulin Syringe) cholecalciferol (vitamin D3) 1,250 1,250 mcg PO WEEKLY #14 caps 09/29/2401/13 Rx mcg (50,000 unit) capsule blood-glucose sensor (Dexcom G7 #9 ea 11/11/24 5 Rx Sensor device) empagliflozin 25 mg tablet 25 mg PO DAILY #90 tabs 12/28/24 Rx enzalutamide 80 mg tablet (Xtandi) 80 mg PO BID 12/28/24 History insulin glargine 100 unit/mL (3 30 unit (0.3 mL) subcu t DAILY #30 11/11/24 12/28/24 Rx mL) subcutaneous pen (Lantus mL Solostar U-100 Insulin) semaglutide 1 mg/dose (4 mg/3 mL) 1 mg (0.75 mL) subcu t WEEKLY #9 mL 11/11/24 12/28/24 Rx subcutaneous pen injector (Ozempic) pen needle, diabetic 31 gauge x #600 ea 11/15/2412/28 Rx 3/16 dicyclomine 20 mg tablet 20 mg PO TID PRN Abdominal 0 12/14/24 12/28/24 Rx Discomfort #15 tabs ondansetron 4 mg disintegrating 4 mg PO Q8H PRN nausea and 12/14/24 12/28/24 Rx tablet vomiting #15 tabs gabapentin 100 mg capsule See Rx Instructions .Route . COMPLEX 12/28/24 12/28/24 History Laboratory Tests 01/06/25 12:29 POC Capillary Glucose 274 H mg/dl (65-105) Patient hx anesthesia problems: none Family hx anesthesia problems: none Results Review: All pre-operative results and documents have been reviewed as part of the pre- operative evaluation. [facility] Past Medical History Medical History Right foot ulcer Acute hypoxemic respiratory failure Chronic sinusitis of both maxillary sinuses Pneumonia due to 2019 novel coronavirus UTI (urinary tract infection) Arthritis Overweight (BMI 25.0-29.9) Cholecystitis Prostate cancer Diabetes Surgical History Surgical History History of laparoscopic cholecystectomy 12/31/2021 laparoscopic cholecystectomy with intraoperative cholangiogram Hx of laparoscopy Diagnostic laparoscopy with lysis of adhesion 11/06/21. H/O prostatectomy Family History Family History Other Diabetes mellitus Social History Social History Smoking status: Never smoker Second hand tobacco smoke exposure: No Alcohol intake: former Substance use: never Do You Feel Safe in your Home?: Yes Lack of Transportation: YES Lack of Food: Never True Current Housing: I Have Housing Concerned About Future Housing: No Difficulty Paying Gas/Electric Bills: No Difficulty Paying for Meds: No Currently Unemployed: No Education: High School Diploma/GED Difficulty w/ Childcare or Family Care: No Living arrangements: alone Spiritual care concerns: No Anes - Eval Final PreProcedure Day of Procedure 01/06/25 12:56 Patient weight: overweight Lungs: normal air movement Airway: Mallampati scale class II and special considerations (Teeth in very poor condition, jeanne on top, reports none loose. ) Neurological: alert and oriented Last oral intake: >/= 8 hours ASA classification: III Emergent: no Anesthetic plan: proceed Anesthesia type and monitoring: general LMA and standard monitoring Results Review: All pre-operative results and documents have been reviewed as part of the pre- operative evaluation. DM w poor control, fsbs 274, hyperlipidemia, severe neuropathy, pt minimally ambulatory. Informed Consent: The patient's anesthetic plan and its attendant risks and benefits were discussed with the patient/family/POA. Questions were solicited and answers prov ided to the satisfaction of the patient/family/POA.
[2025-01-06] MEDS: INSULIN HUMAN REGULAR (*BKC) 100 UNITS/ML SUB-Q (12:59)
[2025-01-06] MEDS: ceFAZolin 2 GM in SODIUM CHLORIDE 0.9% IV 50 ML 100 ML IVPB (14:08)
--- NOTE | 2025-01-06 14:26 | CY_PTH ---
PATIENT: Jai Escobar Jr. LOC: [facility] U#:[id number] AGE/SX: 74/M ROOM: RE01/06/[address]: Kameron An MD : 1950 BED: DIS: 01/06/2025 SPEC #: [id number] RECD: 01/07/25 06:52 STATUS: [place] REQ #: [id number] GLADIS: 01/06/25 14:[address]: Kameron An DEPT: [facility] Cytology RECD BY: Shayy Black ENTERED: 01/07/25 06:54 SP TYPE: Cytology OTHR DR: Jovan Ram MD Tissues: A - Urine Procedures: Cytopathology Cytospin
[2025-01-06] MEDS: LIDOCAINE 2% GEL UROJET 10 ML PKG MUCOUS MEM (14:27)
[2025-01-06 14:47] VITALS: BP 138/89; PULSE 80; RESP 17; TEMP 36.7; O2SAT 100
[2025-01-06] MEDS: LACTATED RINGERS 1,000 ML 30 ML IV CONT (14:47)
--- NOTE | 2025-01-06 14:50 | W.PM.PROC2 ---
Procedure Note - Detailed Date of Procedure 01/06/25 Pre-op Diagnosis Prostate CA, left renal mass, hydronephrosis Post-op Diagnosis Other (1. To normal bladder on cystoscopy 2. Normal left ureteroscopy) Procedure Performed Cystoscopy, left ureteroscopy, left retrograde pyelography Surgeon Kameron An MD Anesthesia General Description of Procedure Patient is brought to the operative suite where he has prepped and draped in routine sterile fashion while in dorsal lithotomy position after the uneventful induction of a general LMA anesthetic. Cystoscopy was undertaken with a 19 F rigid cystoscope. Urethra was endoscopically normal prostatic urethra was estimated at 2.5 cm. Urine from the bladder was collected for cytology. The bladder was endoscopically normal without any mucosal hyperemia or christiano neoplastic changes. He has a single orthotopic ureteral orifice bilaterally. A 0.035 in glidewire was advanced in the left renal pelvis and the distal ureter was dilated with an 8 F 10 F dilator. It should be noted the has a very prominent interureteric ridge which may account for question of a mass over the left gibran trigone. Left distal ureteroscopy was undertaken with a short tapered semi-rigid ureteral scope. The distal ureters perfectly normal endoscopically without masses points of obstruction or other pathology. I then placed a 7.5 F digital flexible scope performed a left retrograde pyelogram to ensure careful inspection of all calices. The upper urinary tract including all calices and renal pelvis were carefully inspected and there is no urothelial abnormalities, certainly no signs of urothelial carcinoma and no identifiable stones. The ureter was likewise endoscopically unremarkable. Scopes wires removed the patient was taken recovery room good condition He does have a CT scan showing a mass in his left lower pole which is likely renal cell carcinoma.
--- NOTE | 2025-01-06 14:51 | SUR.PHASEI ---
1451 - carey gonzalez aware of accucheck 241, no orders received
[2025-01-06 15:00] VITALS: BP 137/87; PULSE 84; RESP 15; O2SAT 97
[2025-01-06 15:10] VITALS: BP 137/78; PULSE 83; RESP 16; O2SAT 98
[2025-01-06 15:15] VITALS: BP 139/75; PULSE 87; RESP 16
[2025-01-06 15:45] VITALS: BP 136/77; PULSE 83; RESP 16
[2025-01-06 16:05] VITALS: BP 124/80; PULSE 84; RESP 16
--- NOTE | 2025-01-06 16:32 | SUR.PHASEII ---
1615 PT MEETS ANESTHESIA DISCHARGE CRITERIA. DRESSED & WAITING FOR NEPHEW TO TAKE HOME.
== END 2025-01-06 16:44 | disposition home or self-care (01) ==
PROVIDERS: PCP Emergency Medicine; Visit Provider Urology
PROC: (CPT 52352; principal; 2025-01-06 14:15)
DX: N13.30 Unspecified hydronephrosis (principal); N28.89 Other specified disorders of kidney and ureter; E11.9 Type 2 diabetes mellitus without complications; E78.5 Hyperlipidemia, unspecified; G62.9 Polyneuropathy, unspecified; J96.01 Acute respiratory failure with hypoxia; J32.0 Chronic maxillary sinusitis; M19.90 Unspecified osteoarthritis, unspecified site; Z79.4 Long term (current) use of insulin; Z79.84 Long term (current) use of oral hypoglycemic drugs; Z79.85 Long-term (current) use of injectable non-insulin antidiabetic drugs; Z98.890 Other specified postprocedural states; Z90.49 Acquired absence of other specified parts of digestive tract; Z85.46 Personal history of malignant neoplasm of prostate
CPT/HCPCS: 52351; 74420; 82948; 88108; J0690; C1769; J1815; J2003; J2405; J2704; J3010; J7120; Q9966